=== PATIENT | male | born 1960 | race Caucasian/White ===

== ENCOUNTER 2018-01-26 12:55 | Outpatient (CLI) ==
--- NOTE | 2018-01-26 13:47 | DI ---
EXAM: Four views of the left shoulder. History: Left shoulder pain. Findings: No acute fracture or dislocation. Moderate to severe narrowing of the left glenohumeral j oint with osteophyte formation. Mild to moderate narrowing of the left AC joint. Impression: 1. No acute osseous abnormality. 2. Moderate to severe osteoarthritis of the left glenohumeral joint
== END 2018-01-26 12:56 | disposition home or self-care (01) ==
LOC: RAD 12:55
PROVIDERS: ATTEND Internal Medicine
DX: M25.512 Pain in left shoulder (principal); E78.5 Hyperlipidemia, unspecified; I10 Essential (primary) hypertension; Z79.899 Other long term (current) drug therapy; Z12.5 Encounter for screening for malignant neoplasm of prostate
CPT/HCPCS: 36415; 80053; 80061; 83036; 84443; 85025

== ENCOUNTER 2018-02-05 07:34 | Day surgery (SDC) ==
[2018-02-05] MEDS ORDERED: TETRACAINE 0.5% UNIT-DOSE OP PRN (07:50)
[2018-02-05] MEDS ORDERED: LIDOCAINE HCL 1% SDV INJ PRN (07:50)
[2018-02-05] MEDS ORDERED: BSS WITH EPINEPHRINE OP ONE (07:50)
[2018-02-05] MEDS ORDERED: BETADINE OPTH PREP OP ONE (07:50)
[2018-02-05] MEDS: AK-DILATE 10% OPTH SOL OP PRN ×3 (07:58→08:08)
[2018-02-05] MEDS: OCUFEN 0.03% OPTH SOL OP PRN ×2 (07:58→08:13)
[2018-02-05] MEDS: TETRACAINE 0.5% UNIT-DOSE OP PRN ×2 (07:58→08:13)
[2018-02-05] MEDS: CYCLOGYL 2% OPTH OP PRN ×3 (07:58→08:08)
[2018-02-05 08:03] VITALS: BP 146/70; TEMP 97.6
[2018-02-05] MEDS ORDERED: DIAMOX PO STA ×3 (08:08→16:17)
[2018-02-05] MEDS ORDERED: LIDOCAINE 1% 20 ML MDV ID STA (08:08)
[2018-02-05] MEDS ORDERED: ADRENALIN 1:1000 SDV IR STA (09:00)
[2018-02-05] MEDS ORDERED: SUBLIMAZE ONE (09:05)
[2018-02-05] MEDS ORDERED: VERSED ONE (09:05)
[2018-02-05] MEDS ORDERED: DIAMOX ONE (09:35)
[2018-02-05] MEDS ORDERED: DIAMOX PO ONE (09:50)
--- NOTE | 2018-02-06 18:01 | OP ---
PREOPERATIVE DIAGNOSIS: ADVANCED HIGH INDEX NUCLEAR SCLEROTIC CATARACT RIGHT EYE. POSTOPERATIVE DIAGNOSIS: SAME. OPERATION PHACOEMULSIFICATION ASPIRATION OF CATARACT RIGHT EYE. PLACEMENT OF POSTERIOR CHAMBER LENS. PHACO TIME 37.3 SECONDS AT 100% POWER. LENS MODEL TECANOOP [id number]. DIOPTER +16.0D. TECHNIQUE: CLEAR CORNEA. ANESTHESIA: TOPICAL ANESTHESIA W/ANESTHESIA MONITORING. OPERATIVE REPORT: Topical anesthesia consisting of Tetracaine was applied to the cornea and Xylocaine Methyl Paraben free of MFP was injected intracamerally into the anterior chamber. The patient was then brought into the operating room , prepped and draped in the usual ophthalmic manner. A lid speculum was placed and the operating microscope was used. A paracentesis was made at the 3 o' clock position. A clear corneal incision was made just out to the limbus. The anterior chamber was entered just inside the clear cornea. Viscoelastic was injected into the anterior chamber. A capsulotomy was performed with a bent # 27 gauge needle. Phacoemulsification was then performed in the posterior chamber. After completion of the phacoemulsification, residual cortical material was aspirated with the irrigation-aspiration system. The posterior capsule was polished. Viscoelastic was injected into the anterior and posterior chambers to inflate the capsular bag. Lens were placed via an Unfolder system and stabilized in the bag. Viscoelastic was removed from the anterior chamber. The wound was checked for any leakage. The four sponges were removed from the fornix. Topical antibiotic steroid and nonsteroidal drops were also applied to the cornea. A Bass shield was applied. The patient left the operating room in good condition without any complications. INTRAOPERATIVE MEDICATIONS: Xylocaine Methyl Paraben Free MPF MTDD
== END 2018-02-05 10:00 | disposition home or self-care (01) ==
LOC: SURG 07:34
PROVIDERS: ATTEND Ophthalmology
DX: H25.13 Age-related nuclear cataract, bilateral (principal); I10 Essential (primary) hypertension

== ENCOUNTER 2018-02-24 12:02 | Emergency (ER) ==
[2018-02-24 12:11] VITALS: TEMP 97.9; BMI 26.4
--- NOTE | 2018-02-24 12:41 | CT ---
EXAM: CT of the head without contrast History: Head trauma. Technique: Multiplanar CT images through the head were obtained without the administration of IV con trast Findings: Air-fluid levels are seen within the paranasal sinuses. Mastoid air cells are clear in ge neral. No acute calvarial abnormalities. Intracranially there is mild diffuse atrophy. No midline shift and no hydrocephalus. No acute intra cranial hemorrhage or abnormal extraaxial fluid collections. Periventricular and subcortical white m atter hypodensities. Impression: 1. No acute intracranial hemorrhage. 2. Atrophy and chronic small vessel ischemic disease. 3. Paranasal sinusitis
[2018-02-24] MEDS ORDERED: SODIUM CHLORIDE 1,000 ML IV STA (12:42)
--- NOTE | 2018-02-24 12:50 | CT ---
EXAM: CT scan of the cervical spine without contrast HISTORY: Fall injury TECHNIQUE: Helical imaging of the cervical spine was performed without contrast. Sagittal and coron al reconstructions and axial images were provided for interpretation. FINDINGS: There is straightening of the cervical spine. The occipital condyles, C1 ring appear inta ct. The spinous processes are intact. There is a normal alignment of the facet joints. The prever tebral soft tissues are normal. No acute fractures are identified. IMPRESSION: No evidence of acute fracture dislocation seen within the cervical spine.
--- NOTE | 2018-02-24 12:59 | ED.PDOC ---
General ED Provider: Dr. CINDY RANGEL Chief Complaint: Fall Mode of Arrival: Walk-In Information Source: Patient Primary Care Provider: KARTHIK VILLARREAL Sepsis Protocol: For patient's 13 years and over: Temp is 96.8 and below OR 101 and greater Pulse >90 BPM Resp >20/minute Acutely Altered Mental Status Are patient's symptoms suggestive of a new infection, such as: -Pneumonia -Skin, Soft Tissue -Endocarditis -UTI -Bone, Joint Infection -Implantable Device -Acute Abdominal Infection -Wound Infection -Meningitis -Blood Stream Catheter Infection -Unknown Past Medical History - Social History Smoking Status: Former smoker Hx Substance Use: No Alcohol Screening: Occasionally - Immunizations Tetanus Shot up to Date: Yes Interpretation - Radiology Interpretation Radiology Interpretation By: Radiologist Radiology Results: Negative (for bleed but noted Atrophy and chronic Small vessel ischemic changes. Paranasal sinusitis) Exam Interpreted: CT Scan (head) - EKG Interpretation Time of EKG #1: 13:30 Rate: Normal Rhythm: Sinus Ectopy: None Tony: NL ST Segment: Normal Interpretation: Prologed qtc 490 Course - Course Hematology/Chemistry: 02/24/18 12:45 02/24/18 12:45 Orders, Labs, Meds: Lab Review 02/24/18 02/24/18 12:45 12:45 WBC 9.15 RBC 4.51 L Hgb 14.3 Hct 42.0 MCV 93.1 MCH 31.7 H MCHC 34.0 RDW Coeff of Hai 14.8 Plt Count 304 Immature Gran % (Auto) 2.2 Neut % (Auto) 44.5 Lymph % (Auto) 41.1 Cataño % (Auto) 8.6 Eos % (Auto) 2.6 Baso % (Auto) 1.0 Immature Gran # (Auto) 0.2 Neut # (Auto) 4.1 Lymph # (Auto) 3.8 H Cata[place] # (Auto) 0.8 Eos # (Auto) 0.2 Baso # (Auto) 0.1 Sodium 144 Potassium 3.4 L Chloride 110 H Carbon Dioxide 19 L Anion Gap 18.4 BUN 12 Creatinine 0.69 Estimated GFR (MDRD) 119.00 BUN/Creatinine Ratio 17.39 Glucose 94 Calcium 8.5 Total Bilirubin 0.3 AST 28 ALT 15 Alkaline Phosphatase 96 Total Creatine Kinase 38 Troponin I 0.0120 Total Protein 7.9 Albumin 4.0 Globulin 3.9 Albumin/Globulin Ratio 1.03 Orders Category Date Time Status ABG DRAW REQUEST Routine CARDIO 02/24/18 13:29 Ordered EKG-(ED ONLY) Stat CARDIO 02/24/18 12:42 Completed ED IV/MEDIPORT/POWERPORT .ONCE EMERGENCY 02/24/18 12:42 Active Orthostatic [ED ORTHOSTATIC VITAL SIGNS] .ONCE EMERGENCY 02/24/18 12:44 Active ABG Stat LAB 02/24/18 13:29 Ordered CBC W/ AUTO DIFF Stat LAB 02/24/18 12:45 Completed COMPREHENSIVE METABOLIC PANEL Stat LAB 02/24/18 12:45 Completed CREATINE KINASE Stat LAB 02/24/18 12:45 Completed DRUG SCREEN, URINE, RAPID Stat LAB 02/24/18 12:42 Uncollected TROPONIN I Stat LAB 02/24/18 12:45 Completed 0.9 % Sodium Chloride [Saline Flush] MEDS 02/24/18 12:42 Ordered 1 syr IVF PRN PRN Acetaminophen [Tylenol] MEDS 02/24/18 13:28 Stat 650 mg PO ONCE STA Sodium Chloride 0.9% [Sodium Chloride] 1,000 ml MEDS 02/24/18 12:42 Active IV 125 mls/hr CT CERVICAL SPINE W/O CONTRAST Stat RADS 02/24/18 12:[address] HEAD W/O CONTRAST Stat RADS 02/24/18 12:21 Completed Medications Generic Name Dose Route Start Last Admin Trade Name Freq PRN Reason Stop Dose Admin Sodium Chloride 1,000 mls @ 125 mls/hr 02/24/18 12:42 02/24/18 13:03 Sodium Chloride IV 02/24/18 20:41 125 mls/hr .Q8H STA Administration Sodium Chloride 1 syr 02/24/18 12:42 Saline Flush IVF PRN PRN To flush IV Discontinued Medications Generic Name Dose Route Start Last Admin Trade Name Freq PRN Reason Stop Dose Admin Acetaminophen 650 mg 02/24/18 13:28 Tylenol PO 02/24/18 13:29 ONCE STA Vital Signs: Temp Pulse Resp BP Pulse Ox 02/24/18 13:02 109 H 116/69 02/24/18 12:04 97.9 F 104 H 20 128/84 93 L Departure - Departure Allergies/Adverse Reactions: Allergies Sulfa (Sulfonamide Antibiotics) Adverse Reaction (Verified 02/24/18 12:14) Home Medications: Ambulatory Orders Amlodipine Besylate [Norvasc] 10 mg PO DAILY 02/05/18 Oxycodone-Acetaminophen 5-325 [Percocet 5-325] 1 tab PO BID 02/05/18 Pravastatin Sodium [Pravachol] 1 tab PO DAILY 02/05/18
[2018-02-24] MEDS ORDERED: TYLENOL PO STA (13:28)
--- NOTE | 2018-02-24 14:03 | DI ---
EXAM: Single view of the chest. History: Cough. Findings: Heart size is upper limits of normal. No focal consolidation. No appreciable pleural flu id and no pneumothorax. No acute osseous abnormalities. 1.9 cm calcific density projecting over the left scapula could represent a bone island or adjacent soft tissue calcification. Impression: No acute cardiopulmonary process
--- NOTE | 2018-02-24 14:30 | ED.PDOC ---
General ED Provider: Dr. CINDY RANGEL Chief Complaint: Fall Stated Complaint: Patient is a 57 year old male who states that he lost his balance when he got dizzy and fell at 3 am while trying to go to the bathroom. He did not loose conciousness. Has sustained an injury to the mid occipital area. Has some dizziness with standing. Time Seen by Physician: 14:27 Mode of Arrival: Walk-In Information Source: Patient Exam Limitations: No limitations Primary Care Provider: KARTHIK VILLARREAL Nursing and Triage Documentation Reviewed and Agree: Yes Does patient meet sepsis criteria?: No System Inflammatory Response Syndrome: Not Applicable Sepsis Protocol: For patient's 13 years and over: Temp is 96.8 and below OR 101 and greater Pulse >90 BPM Resp >20/minute Acutely Altered Mental Status Are patient's symptoms suggestive of a new infection, such as: -Pneumonia -Skin, Soft Tissue -Endocarditis -UTI -Bone, Joint Infection -Implantable Device -Acute Abdominal Infection -Wound Infection -Meningitis -Blood Stream Catheter Infection -Unknown Trauma/Injury Complaint Exam - Head Injury Complaint/Exam Location of Pain: Reports: Scalp Mechanism of Injury: Reports: Trauma Review of Systems - Review Of Systems Constitutional: Reports: Weakness Eyes: Reports: No symptoms Ears, Nose, Mouth, Throat: Denies: Ear pain (heard of hearing ) Skin: Reports: Bruising, Other (and abrassion of scalp. ) Neurological: Reports: Other (unsteady gait ) Endocrine: Reports: No symptoms Hematologic/Lymphatic: Reports: No symptoms All Other Systems: Reviewed and Negative Past Medical History - Past Medical History Endocrine: Reports: Dyslipidemia Cardiovascular: Reports: Hypertension Respiratory: Reports: None Hematological: Reports: None Gastrointestinal: Reports: None Genitourinary: Reports: None Neuro/Psych: Reports: None Musculoskeletal: Reports: Arthritis Cancer: Reports: None Other Pertinent Past Medical History: Left Ulnar damage for fracture 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 - Surgical History General Surgical History: Reports: Other (Testicular Remaoval, Hip surgery ) - Family History Family History: Reports: None - Social History Smoking Status: Former smoker Hx Substance Use: No Alcohol Screening: Occasionally - Immunizations Tetanus Shot up to Date: Yes Physical Exam - Physical Exam Appearance: Ill-appearing Ill-appearing: Mild Pain Distress: None Eyes: ANNIE, EOMI, Conjunctiva clear Neck: Supple Respiratory: Airway patent, Breath sounds clear, Breath sounds equal, Respirations nonlabored Cardiovascular: RRR, Pulses normal, No rub, No murmur GI/: Soft, Nontender, No masses, Bowel sounds normal, No Organomegaly Musculoskeletal: Limited strength (on the left forearm due to prior ulnar nerve damage following an elbow fracture. ) Skin: Warm, Dry Neurological: Alert Psychiatric: Anxious Interpretation - Radiology Interpretation Radiology Interpretation By: Radiologist Radiology Results: Negative Exam Interpreted: CT Scan Radiology Interpretation By: Radiologist Radiology Results: Negative Exam Interpreted: CXR Critical Care Note - Critical Care Note Total Time (mins): 30 Course - Course Hematology/Chemistry: 02/24/18 12:45 02/24/18 12:45 Orders, Labs, Meds: Lab Review 02/24/18 02/24/18 02/24/18 12:45 12:45 13:29 WBC 9.15 RBC 4.51 L Hgb 14.3 Hct 42.0 MCV 93.1 MCH 31.7 H MCHC 34.0 RDW Coeff of Hai 14.8 Plt Count 304 Immature Gran % (Auto) 2.2 Neut % (Auto) 44.5 Lymph % (Auto) 41.1 Rush % (Auto) 8.6 Eos % (Auto) 2.6 Baso % (Auto) 1.0 Immature Gran # (Auto) 0.2 Neut # (Auto) 4.1 Lymph # (Auto) 3.8 H Rush # (Auto) 0.8 Eos # (Auto) 0.2 Baso # (Auto) 0.1 Puncture Site R radial O2 Saturation 94.0 L ABG pH 7.335 L ABG pCO2 38.9 ABG pO2 73.0 L ABG HCO3 20.7 L ABG Total CO2 22 ABG Base Excess -5 L Usman Test + FiO2 % 21.0 Sodium 144 Potassium 3.4 L Chloride 110 H Carbon Dioxide 19 L Anion Gap 18.4 BUN 12 Creatinine 0.69 Estimated GFR (MDRD) 119.00 BUN/Creatinine Ratio 17.39 Glucose 94 Calcium 8.5 Total Bilirubin 0.3 AST 28 ALT 15 Alkaline Phosphatase 96 Total Creatine Kinase 38 Troponin I 0.0120 Total Protein 7.9 Albumin 4.0 Globulin 3.9 Albumin/Globulin Ratio 1.03 Urine Color Urine Clarity Urine pH Ur Specific [place] Urine Protein Urine Glucose (UA) Urine Ketones Urine Blood Urine Nitrite Urine Bilirubin Urine Urobilinogen Ur Leukocyte Esterase Urine Microscopic WBC Ur Squamous Epith Cells Urine Mucus Urine Opiates Screen Ur Oxycodone Screen Urine Methadone Screen Ur Propoxyphene Screen Ur Barbiturates Screen U Tricyclic Antidepress Ur Phencyclidine Scrn Ur Amphetamine Screen U Methamphetamines Scrn U Benzodiazepines Scrn Urine Cocaine Screen U Cannabinoids Screen 02/24/18 02/24/18 14:30 14:30 WBC RBC Hgb Hct MCV MCH MCHC RDW Coeff of Hai Plt Count Immature Gran % (Auto) Neut % (Auto) Lymph % (Auto) Rush % (Auto) Eos % (Auto) Baso % (Auto) Immature Gran # (Auto) Neut # (Auto) Lymph # (Auto) Rush # (Auto) Eos # (Auto) Baso # (Auto) Puncture Site O2 Saturation ABG pH ABG pCO2 ABG pO2 ABG HCO3 ABG Total CO2 ABG Base Excess Usman Test FiO2 % Sodium Potassium Chloride Carbon Dioxide Anion Gap BUN Creatinine Estimated GFR (MDRD) BUN/Creatinine Ratio Glucose Calcium Total Bilirubin AST ALT Alkaline Phosphatase Total Creatine Kinase Troponin I Total Protein Albumin Globulin Albumin/Globulin Ratio Urine Color Yellow Urine Clarity Clear Urine pH 5.5 Ur Specific [place] 1.025 Urine Protein 1+ Urine Glucose (UA) Negative Urine Ketones Negative Urine Blood Negative Urine Nitrite Negative Urine Bilirubin Negative Urine Urobilinogen 0.2 Ur Leukocyte Esterase Negative Urine Microscopic WBC 0-2 Ur Squamous Epith Cells 0-2 Urine Mucus 2+ Urine Opiates Screen Negative Ur Oxycodone Screen Negative Urine Methadone Screen Negative Ur Propoxyphene Screen Negative Ur Barbiturates Screen Negative U Tricyclic Antidepress Negative Ur Phencyclidine Scrn Negative Ur Amphetamine Screen Negative U Methamphetamines Scrn Negative U Benzodiazepines Scrn Negative Urine Cocaine Screen Negative U Cannabinoids Screen Negative Orders Category Date Time Status ABG DRAW REQUEST Routine CARDIO 02/24/18 13:29 Completed EKG-(ED ONLY) Stat CARDIO 02/24/18 12:42 Completed ED IV/MEDIPORT/POWERPORT .ONCE EMERGENCY 02/24/18 12:42 Active Orthostatic [ED ORTHOSTATIC VITAL SIGNS] .ONCE EMERGENCY 02/24/18 12:44 Active ABG Stat LAB 02/24/18 13:29 Completed CBC W/ AUTO DIFF Stat LAB 02/24/18 12:45 Completed COMPREHENSIVE METABOLIC PANEL Stat LAB 02/24/18 12:45 Completed CREATINE KINASE Stat LAB 02/24/18 12:45 Completed DRUG SCREEN, URINE, RAPID Stat LAB 02/24/18 14:30 Completed TROPONIN I Stat LAB 02/24/18 12:45 Completed UA [URINALYSIS C & S IF INDICATED] Stat LAB 02/24/18 14:30 Completed 0.9 % Sodium Chloride [Saline Flush] MEDS 02/24/18 12:42 Discontinued 1 syr IVF PRN PRN Acetaminophen [Tylenol] MEDS 02/24/18 13:28 Discontinued 650 mg PO ONCE STA Sodium Chloride 0.9% [Sodium Chloride] 1,000 ml MEDS 02/24/18 12:42 Discontinued IV 125 mls/hr Sodium Chloride 0.9% [Sodium Chloride] 500 ml MEDS 02/24/18 15:06 Discontinued IV BOLUS CHEST, 1V AP ONLY Stat RADS 02/24/18 13:[address] CERVICAL SPINE W/O CONTRAST Stat RADS 02/24/18 12:[address] HEAD W/O CONTRAST Stat RADS 02/24/18 12:21 Completed Medications Discontinued Medications Generic Name Dose Route Start Last Admin Trade Name Freq PRN Reason Stop Dose Admin Acetaminophen 650 mg 02/24/18 13:28 02/24/18 13:46 Tylenol PO 02/24/18 13:29 650 mg ONCE STA Administration Sodium Chloride 1,000 mls @ 125 mls/hr 02/24/18 12:42 02/24/18 13:03 Sodium Chloride IV 02/24/18 20:41 125 mls/hr .Q8H STA Administration Sodium Chloride 500 mls @ 1,000 mls/hr 02/24/18 15:06 02/24/18 15:13 Sodium Chloride IV 02/24/18 15:35 1,000 mls/hr BOLUS STA Administration Sodium Chloride 1 syr 02/24/18 12:42 Saline Flush IVF PRN PRN To flush IV Vital Signs: Temp Pulse Resp BP Pulse Ox 02/24/18 15:51 147/87 H 02/24/18 15:08 110 H 140/87 02/24/18 15:07 95 H 147/86 H 02/24/18 13:02 109 H 116/69 02/24/18 12:04 97.9 F 104 H 20 128/84 93 L Departure - Departure Time of Disposition: 15:30 Disposition: HOME SELF-CARE Discharge Problem: Orthostatic dizziness Fall at home Qualifiers: Encounter type: initial encounter Qualified Code(s): W19.XXXA - Unspecified fall, initial encounter Abrasion head Qualifiers: Encounter type: initial encounter Qualified Code(s): S00.91XA - Abrasion of unspecified part of head, initial encounter Instructions: Dehydration (ED), Abrasion (ED) Condition: Stable Pt referred to PMD for follow-up: Yes IPMP verified?: No Additional Instructions: Push fluids Follow up with PCP in 3 days Allergies/Adverse Reactions: Allergies Sulfa (Sulfonamide Antibiotics) Adverse Reaction (Verified 02/24/18 12:14) Home Medications: Ambulatory Orders Amlodipine Besylate [Norvasc] 10 mg PO DAILY 02/05/18 Oxycodone-Acetaminophen 5-325 [Percocet 5-325] 1 tab PO BID 02/05/18 Pravastatin Sodium [Pravachol] 1 tab PO DAILY 02/05/18 Disposition Discussed With: Patient, Family
[2018-02-24] MEDS ORDERED: SODIUM CHLORIDE 500 ML IV STA (15:06)
[2018-02-24 15:52] VITALS: BP 147/87
== END 2018-02-24 15:56 | disposition home or self-care (01) ==
LOC: ED 12:02
DX: R42 Dizziness and giddiness (principal); S00.01XA Abrasion of scalp, initial encounter; W19.XXXA Unspecified fall, initial encounter
CPT/HCPCS: 36415; 80053; 80306; 81001; 82550; 82803; 84484; 85025; 93005; 93010; 96360; 96361; 99284

== ENCOUNTER 2018-03-05 08:56 | Day surgery (SDC) ==
[2018-03-05] MEDS: CYCLOGYL 2% OPTH OP PRN ×3 (09:56→10:07)
[2018-03-05] MEDS: TETRACAINE 0.5% UNIT-DOSE OP PRN ×3 (09:56→12:01)
[2018-03-05] MEDS: AK-DILATE 10% OPTH SOL OP PRN ×3 (09:57→10:07)
[2018-03-05] MEDS: OCUFEN 0.03% OPTH SOL OP PRN ×2 (09:57→10:11)
[2018-03-05 10:08] VITALS: TEMP 97.5
[2018-03-05] MEDS ORDERED: LIDOCAINE 1% 20 ML MDV ID STA (10:10)
[2018-03-05] MEDS ORDERED: BETADINE OPTH PREP OP ONE (10:10)
[2018-03-05] MEDS ORDERED: DIAMOX PO STA (10:10)
[2018-03-05] MEDS ORDERED: DIPRIVAN 20 ML VIAL IVP ONE (12:00)
[2018-03-05] MEDS ORDERED: VERSED ONE (12:00)
[2018-03-05] MEDS ORDERED: PRED FORTE 1% OPTH SOL OP PRN (12:05)
[2018-03-05] MEDS ORDERED: LIDOCAINE HCL 1% SDV INJ PRN (12:05)
[2018-03-05] MEDS ORDERED: BSS WITH EPINEPHRINE OP ONE (12:05)
[2018-03-05] MEDS ORDERED: DIAMOX ONE (12:55)
--- NOTE | 2018-03-06 09:24 | OP ---
PREOPERATIVE DIAGNOSIS: ADVANCED NUCLEAR SCLEROTIC CATARACT AND HIGH INDEX PLUS ANISOMETROPIA LEFT EYE. POSTOPERATIVE DIAGNOSIS: SAME. OPERATION PHACOEMULSIFICATION ASPIRATION OF CATARACT LEFT EYE. PLACEMENT OF POSTERIOR CHAMBER LENS. PHACO TIME 45.8 SECONDS AT 10% POWER. LENS MODEL BAHMAN [id number]. DIOPTER +15.5D. TECHNIQUE: CLEAR CORNEA. ANESTHESIA: TOPICAL ANESTHESIA W/ANESTHESIA MONITORING. OPERATIVE REPORT: Topical anesthesia consisting of Tetracaine was applied to the cornea and Xylocaine Methyl Paraben free of MFP was injected intracamerally into the anterior chamber. The patient was then brought into the operating room , prepped and draped in the usual ophthalmic manner. A lid speculum was placed and the operating microscope was used. A paracentesis was made at the 3 o' clock position. A clear corneal incision was made just out to the limbus. The anterior chamber was entered just inside the clear cornea. Viscoelastic was injected into the anterior chamber. A capsulotomy was performed with a bent # 27 gauge needle. Phacoemulsification was then performed in the posterior chamber. After completion of the phacoemulsification, residual cortical material was aspirated with the irrigation-aspiration system. The posterior capsule was polished. Viscoelastic was injected into the anterior and posterior chambers to inflate the capsular bag. Lens were placed via an Unfolder system and stabilized in the bag. Viscoelastic was removed from the anterior chamber. The wound was checked for any leakage. The four sponges were removed from the fornix. Topical antibiotic steroid and nonsteroidal drops were also applied to the cornea. A Bass shield was applied. The patient left the operating room in good condition without any complications. INTRAOPERATIVE MEDICATIONS: Xylocaine Methyl Paraben Free MPF MTDD
[2018-03-08 12:05] VITALS: BP 138/69
== END 2018-03-05 13:00 | disposition home or self-care (01) ==
LOC: SURG 08:56
PROVIDERS: ATTEND Ophthalmology
DX: H25.12 Age-related nuclear cataract, left eye (principal); H52.31 Anisometropia

== ENCOUNTER 2018-03-21 06:34 | Outpatient (CLI) | END 2018-03-21 06:35 | disposition home or self-care (01) | LOC: CAR 06:34 | PROVIDERS: ATTEND Internal Medicine | DX: I50.9 Heart failure, unspecified (principal); R06.02 Shortness of breath; Z01.810 Encounter for preprocedural cardiovascular examination | CPT/HCPCS: 93005; 93010 ==

== ENCOUNTER 2018-03-22 06:32 | Outpatient (CLI) ==
[2018-03-22] MEDS ORDERED: DOBUTAMINE 250 ML IV ONE (07:31)
[2018-03-22] MEDS ORDERED: ATROPINE SULFATE PFS ONE (07:31)
--- NOTE | 2018-03-23 08:59 | DOBSTECHO ---
Date of Test: 03/22/18 Ordering Physician: DR. KARTHIK VILLARREAL Reason for Examination: CHF, SURGICAL CLEARANCE Current Medications: TRAMADOL, AMLODIPINE, PANTOPRAZOLE, PRAVASTATIN, CARVEDILOL , HYDROCODONE Height: 73" Weight: 202 LBS Target Heart Rate: 140/165 S-T Segment Stage Time HR BPM BP MMHG Rhythm +/- Elevation Depression Comments/ Symptoms Control Sitting 71 150/96 SR X NONE Dobutamine 250mg/D5W 5cmg/KG/mn 10cmg/KG/mn 3:00 86 146/92 SR X NONE 15cmg/KG/mn 2:00 80 156/90 SR x NONE 20cmg/KG/mn 2:00 84 164/86 SR x NONE 25cmg/KG/mn 2:00 88 162/88 SR x NONE 30cmg/KG/mn 2:00 86 162/88 SR x NONE 35cmg/KG/mn 2:00 88 162/88 SR x NONE 40cmg/KG/mn 2:00 100 166/76 SR x NONE Time: 3:00 HR B/P Time: HR B/P Time: HR B/P Recovery 83 156/96 Recovery Recovery Total Time: 15:23 Maximum Heart Rate Reached: 100 BPM Interpretation: 1. NO EVIDENCE OF ISCHEMIA BY ST-T WAVE FROM HEART RATE 71 BPM AT REST TO 100 BPM WITH DOBUTAMINE INFUSION 2. NO CHEST PAIN OR DISCOMFORT 3. NORMAL LEFT VENTRICULAR CONTRACTILITY--RESTING AND WITH DOBUTAMINE INFUSION MTDD
--- NOTE | 2018-03-23 09:01 | ECHOSTRESS ---
Date of Exam: 03/22/18 Ordering Physician: DR. KARTHIK VILLARREAL Reason for Echo: CHF, SURGICAL CLEARANCE, DOBUTAMINE STRESS-NO ISCHEMIA M-Mode Normal Adult Results LV Dimensions Normal Adult Results AoV Opening excursions >1.6 LVEDD-base- 3.5-5.8 Ao root dimensions 2.0-3.7 LVESD-base- 3.1-4.6 L. Atrium dimensions 1.9-3.8 Post. Wall thickness 0.8-1.1 IV septum (thickness) 0.7-1.2 Post. Wall excursion 0.72-1.3 Septal motion Systolic motion R. Ventricular cavity 1.5-2.0 LVEF 60% Paradoxical septal wall motion 2-D: NORMAL LEFT VENTRICULAR CONTRACTILITY--RESTING AND WITH DOBUTAMINE INFUSION M-MODE: MV: AV: TV: PV: CHAMBER SIZE: WALL MOTION: NORMAL LEFT VENTRICULAR CONTRACTILITY--RESTING AND WITH DOBUTAMINE INFUSION PERICARDIUM: INTERPRETATION: 1. NORMAL LEFT VENTRICULAR CONTRACTILITY--RESTING AND WITH DOBUTAMINE INFUSION MTDD
== END 2018-03-22 06:33 | disposition home or self-care (01) ==
LOC: CAR 06:32
PROVIDERS: ATTEND Internal Medicine
DX: R06.02 Shortness of breath (principal); I50.9 Heart failure, unspecified; Z01.810 Encounter for preprocedural cardiovascular examination

== ENCOUNTER 2018-03-27 09:47 | Outpatient (POV) | END 2018-03-27 17:00 | LOC: OUTPT 09:47 | PROVIDERS: ATTEND Otolaryngology | DX: H91.90 Unspecified hearing loss, unspecified ear (principal) ==

== ENCOUNTER 2018-04-27 13:00 | Outpatient (RCR) ==
--- NOTE | 2018-04-02 15:20 | RS.OPPTEV2 ---
Date of Note: 04/02/18 Visit #: 1 Date of Evaluation: 04/02/18 Payer Source: Medicaid Surgery Performed?: Yes Procedure Performed: Left Total Shoulder Replacement Date of Procedure: 03/28/18 Treatment Diagnosis: Left shoulder pain, Left shoulder stiffness, s/p Left TSA History of Condition/Mechanism of Injury:: Progressive left shoulder pain and limited use after conservative treatment led to him having a TSR. Prior Level of Function.....Patient was independent with: ADL's, Self Care, Work /Vocation (retired), Caregiving, Ambulation/Mobility, Community Integration/ Access Functional Limitations: Sleep, Self Care, ADL's, Reaching, Pushing, Pulling, Lifting, Carrying, Sitting, Bending, Community Access/Integration Current Subjective/complaints:: Patient reports wearing left shoulder sling constantly. Reports no swelling in the left hand. He did have a nerve block. States he is currently sleeping in a lift chair. He is living with his mother. She has changed his dressing daily since surgery. Reports pain at rest. He has not tried to use the left UE. States he was told not to drive for 4 weeks and not to use the left UE at all. Reports no prior surgery to the left shoulder. 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 Reports he was left with limited use and numbness in the 5th and lateral portion of the 4th digits of the left hand. States left elbow is hypersensitive. Treatment Side (optional): Left Medical History Surgical History: Hip Replacement (Left X 3, due to dislocations and infection 2014) Surgical History Comments:: Left orchiectomy Smoking Status: Former smoker Hx Home Medications: Oxycodone ,Amlodipine, pravastatin, Patient's Goals: His goal is to regain functional AROM of the left shoulder. Pain Assessment - Pain Description Pain Location: left shoulder Current Pain Intensity: 5/10 Worst Pain Intensity: 10/10 Functional Outcome Measure UE Functional Index: 2 (280=97.5% impairment) - G Codes & Severity Modifier G Codes & Modifier: NA Source of G Code score: NA Observation - Observation Inspection: Patient presents to therapy with left UE in sling with abductor pillow. Presents with light dressing over incision at left shoulder. Posture: Forward Head, Rounded Shoulders Handedness: Right Shoulder ROM: Right WFL's Shoulder Muscle Strength: Right WFL's - Left Shoulder ROM Comments: Passive left shoulder flexion to 75 degrees, abduction to 75-80 degrees. Left elbow, wrist, and hand WFL's. 5th digit of left hand demonstrates flexion contracture deformity. Ulnar aspect of left hand demonstrates moderate muscle atrophy. - Left Shoulder Strength Comments: Muscle strength of the left shoulder not tested. Sensation - Sensation Comments: Reports numbness of 5th and lateral aspect of 4th digit on the left hand. Otherwise, sensation intact throughout left UE. - Heat/Cryotherapy Treatment: Cryotherapy (applied to left shoulder X 12 mins follow eval and ROM) Interventions - Exercise/Activities/Manual Therapy Exercises/Activities: Patient received PROM to the left shoulder into flexion and abduction. Mr. Velez was moderately guarded and required continous cues to relax the arm so that the ROM is Passive and not assisted. Instructed in HEP of Pendulum, scapular retraction, elbow and wrist flexion/extension. Advised to use ice on the shoulder a few times a day to help manage pain and swelling. Manual Therapy: NA HOME EXERCISE PROGRAM: Pendulum, scapular retraction, elbow and wrist flexion/ extension - Charges Timed Code Treatment Minutes: 12 mins Total Treatment Time: 45 mins Procedures billed for this date of service:: EVAL LOW, EX, CP EVALUATION COMPLEXITY LEVEL EVALUATION COMPLEXITY LEVEL: HISTORY: Medium (History of left ulnar sx and limited use of 5th digit, complications of left JACINTO), EXAM OF BODY SYSTEMS: Medium (limited with all selfcare, ADL's, sleep), CLINICAL PRESENTATION: Medium , CLINICAL DECISION MAKING: Medium Assessment Assessment: Patient presents to therapy 5 days s/p left total shoulder replacement. He presents with limited AROM due to surgery precautions, and limited passive ROM due to pain. He requires assistance at this time with all selfcare and ADL's. He demonstrates good understanding of surgical precautions and appears to be compliant with use of sling. He demonstrates good potential to regain functional use of the left UE with appropriately progressed therapeutic intervention. Patient Education: Education of diagnosis, Body/Joint mechanics, Home Exercise Program, Home Safety, Activity Modification, Education of Plan of Care Rehab Potential: Good Short Term Goals Goal #1: Pt independent and compliant with HEP. Goal to be met by: 04/16/18 Goal #2: Left shoulder PROM WFL's. Goal to be met by: 04/16/18 Goal #3: Pt to demo. improved postural awareness. Goal to be met by: 04/16/18 Site Leader Goals Goal #1: Pt knows HEP and to continue ex's to maintain level of function at D/C. Goal to be met by: 05/07/18 Goal #2: Score on UE functional scale improved to 40/80. Goal to be met by: 05/07/18 Goal #3: Left shoulder AROM WFL's to perform functional reaching. Goal to be met by: 05/07/18 Goal #4: L shoulder strength increased to maintain positions for completing ADL' s. Goal to be met by: 05/07/18 Plan - Treatment to be Provided Procedures: Therapeutic Exercises, Therapeutic Activity, Patient Education Modalities: Cryotherapy - Treatment Plan Frequency: 2 X week Duration: 4 weeks ORDER # VISITS AND/OR THROUGH DATE: 05/07/18 - Treatment Code (1) Shoulder pain Code(s): M25.519 - PAIN IN UNSPECIFIED SHOULDER Qualifiers: Chronicity: acute Laterality: left Qualified Code(s): M25.512 - Pain in left shoulder (2) Shoulder stiffness Qualifiers: Laterality: left Qualified Code(s): M25.612 - Stiffness of left shoulder, not elsewhere classified (3) Aftercare following joint replacement surgery Code(s): Z47.1 - AFTERCARE FOLLOWING JOINT REPLACEMENT SURGERY Qualifiers: Joint replacement surgery site: shoulder Laterality: left Qualified Code( s): Z47.1 - Aftercare following joint replacement surgery; Z96.612 - Presence of left artificial shoulder joint (4) Primary osteoarthritis Code(s): M19.91 - PRIMARY OSTEOARTHRITIS, UNSPECIFIED SITE Qualifiers: Osteoarthritis location: shoulder Laterality: left Qualified Code(s): M19.012 - Primary osteoarthritis, left shoulder
--- NOTE | 2018-04-04 13:21 | RS.CXNS ---
Type: Rescheduled Reason for Cancel/NS: Reports pain in back as he was doing shoulder pendulum exercise,not feeling well today.re-scheduled for tomorrow.
--- NOTE | 2018-04-05 15:00 | RS.OPPTDN ---
Subjective Date of Note: 04/05/18 Visit #: 2 Date of Evaluation: 04/02/18 Payer Source: Medicaid Treatment Diagnosis: Left shoulder pain, Left shoulder stiffness, s/p Left TSA Current Subjective/complaints:: Patient reports sleeping in the bed for the first time last night ,rested better. Pain Assessment - Pain Description Pain Location: L shoulder Pain Description: Tightness, Throbbing, Aching Current Pain Intensity: 0 at rest,4 while up moving Worst Pain Intensity: 7 at available end ROM - Heat/Cryotherapy Treatment: Cryotherapy (15 mins. after exercises) Interventions - Exercise/Activities/Manual Therapy Exercises/Activities: 30 mins. total of PROM ,patient in reclined position.Passive forward flexion to 95 degrees ,10 to 15 degrees of external rotation with arm at side,65 degrees of abduction.Reviewed precautions , reminded he is one week post-op. Total minutes of Exercise: 30 Manual Therapy: NA Total minutes of Manual Therapy: 0 HOME EXERCISE PROGRAM: Pendulum, scapular retraction, elbow and wrist flexion/ extension - Charges Timed Code Treatment Minutes: 30 Total Treatment Time: 45 Procedures billed for this date of service:: ex 2,cp Assessment: Patient does require several cues to relax ,and avoid assisting with movement ,but this improves as the exercises progress.He reports increased discomfort with forward flexion beyond 90 degrees.He is compliant to wearing shoulder immobilizer. Patient Education: Education of diagnosis, Body/Joint mechanics, Home Exercise Program, Home Safety, Activity Modification, Education of Plan of Care Patient demonstrates compliance with HEP?: Yes (very attentive) Short Term Goals Goal #1: Pt independent and compliant with HEP. Goal to be met by: 04/16/18 Progress towards Goal:: Progressing Goal #2: Left shoulder PROM WFL's. Goal to be met by: 04/16/18 Goal #3: Pt to demo. improved postural awareness. Goal to be met by: 04/16/18 Liquor Store Manager Goals Goal #1: Pt knows HEP and to continue ex's to maintain level of function at D/C. Goal to be met by: 05/07/18 Goal #2: Score on UE functional scale improved to 40/80. Goal to be met by: 05/07/18 Goal #3: Left shoulder AROM WFL's to perform functional reaching. Goal to be met by: 05/07/18 Goal #4: L shoulder strength increased to maintain positions for completing ADL' s. Goal to be met by: 05/07/18 Plan PLAN OF CARE EXPIRES ON:: 05/07/18 ORDER # VISITS AND/OR THROUGH DATE: 05/07/18 PLAN: Cont. PT to reduce /eliminate shoulder pain ,increase motion ,progress to increasing strength per protocol.
--- NOTE | 2018-04-09 14:56 | RS.OPPTDN ---
Subjective Date of Note: 04/09/18 Visit #: 3 Date of Evaluation: 04/02/18 Payer Source: Medicaid Treatment Diagnosis: Left shoulder pain, Left shoulder stiffness, s/p Left TSA Current Subjective/complaints:: no c/o,is compliant to wearing shoulder immobilizer. Pain Assessment - Pain Description Pain Location: L shoulder Pain Description: Tightness, Dull, Aching Current Pain Intensity: 3/10 Worst Pain Intensity: 6/10 Other Comments regarding Pain:: 6/10 today is at available end range of forward flexion. - Heat/Cryotherapy Treatment: Cryotherapy (15 mins after exercises) Interventions - Exercise/Activities/Manual Therapy Exercises/Activities: 40 mins. total of PROM ,patient in reclined position.Passive forward flexion to 125 degrees ,30 degrees of external rotation with arm at side,70 degrees of abduction.Multiple reps of each exercise. Total minutes of Exercise: 40 Manual Therapy: NA Total minutes of Manual Therapy: 0 HOME EXERCISE PROGRAM: Pendulum, scapular retraction, elbow and wrist flexion/ extension - Charges Timed Code Treatment Minutes: 40 Total Treatment Time: 55 Procedures billed for this date of service:: ex 3,cp Assessment: Patient more relaxed today ,less guarding present with passive motion.He reports forward flexion elevates the pain at available end ROM ( approx. 125 degrees today ).He is attentive to recomendations of the therapy staff. Patient Education: Education of diagnosis, Body/Joint mechanics, Home Exercise Program, Home Safety, Activity Modification, Education of Plan of Care Patient demonstrates compliance with HEP?: Yes Short Term Goals Goal #1: Pt independent and compliant with HEP. Goal to be met by: 04/16/18 Progress towards Goal:: Progressing Goal #2: Left shoulder PROM WFL's. Goal to be met by: 04/16/18 Progress towards Goal:: Progressing Goal #3: Pt to demo. improved postural awareness. Goal to be met by: 04/16/18 Progress towards Goal:: Progressing Wind Up Operator Goals Goal #1: Pt knows HEP and to continue ex's to maintain level of function at D/C. Goal to be met by: 05/07/18 Progress towards goal: Progressing Goal #2: Score on UE functional scale improved to 40/80. Goal to be met by: 05/07/18 Goal #3: Left shoulder AROM WFL's to perform functional reaching. Goal to be met by: 05/07/18 Goal #4: L shoulder strength increased to maintain positions for completing ADL' s. Goal to be met by: 05/07/18 Plan PLAN OF CARE EXPIRES ON:: 05/07/18 ORDER # VISITS AND/OR THROUGH DATE: 05/07/18 PLAN: Continue PT to improve L shoulder motion ,increase strength ,and eliminate pain .
--- NOTE | 2018-04-12 15:17 | RS.OPPTDN ---
Subjective Date of Note: 04/12/18 Visit #: 4 Date of Evaluation: 04/02/18 Payer Source: Medicaid Treatment Diagnosis: Left shoulder pain, Left shoulder stiffness, s/p Left TSA Current Subjective/complaints:: Patint reports he had follow-up with , good report,healng as expected.He is now allowed to drive. Pain Assessment - Pain Description Pain Location: L shoulder Pain Description: Tightness, Dull, Aching Current Pain Intensity: not rated - Heat/Cryotherapy Treatment: Cryotherapy (15 mins. after exercises) Interventions - Exercise/Activities/Manual Therapy Exercises/Activities: 40 mins. total of PROM ,patient in reclined position.Passive forward flexion to 125 to 130 degrees ,30 degrees of external rotation with arm at side,80 degrees of abduction.Multiple reps of each exercise.Added AROM for hand ,wrist ,and elbow (gripping ),wrist ext/flex, biceps curls with no resistance. Isometrics all directions of L shoulder Total minutes of Exercise: 40 Manual Therapy: NA Total minutes of Manual Therapy: 0 HOME EXERCISE PROGRAM: Pendulum, scapular retraction, elbow and wrist flexion/ extension - Charges Timed Code Treatment Minutes: 40 Total Treatment Time: 60 Procedures billed for this date of service:: ex 3,cp Assessment: Patient is now 15 days post-op,tolerates motion and protective phase exercises well.He does report elevated pain with isometrics,but improved with cues to not push forcefully against resistance,only contract the muscle.He is compliant to wearing shoulder sling Patient Education: Education of diagnosis, Body/Joint mechanics, Home Exercise Program, Home Safety, Activity Modification, Education of Plan of Care Patient demonstrates compliance with HEP?: Yes Short Term Goals Goal #1: Pt independent and compliant with HEP. Goal to be met by: 04/16/18 Progress towards Goal:: Progressing Goal #2: Left shoulder PROM WFL's. Goal to be met by: 04/16/18 Progress towards Goal:: Progressing Goal #3: Pt to demo. improved postural awareness. Goal to be met by: 04/16/18 Progress towards Goal:: Progressing Java Performance Engineer Goals Goal #1: Pt knows HEP and to continue ex's to maintain level of function at D/C. Goal to be met by: 05/07/18 Progress towards goal: Progressing Goal #2: Score on UE functional scale improved to 40/80. Goal to be met by: 05/07/18 Goal #3: Left shoulder AROM WFL's to perform functional reaching. Goal to be met by: 05/07/18 Goal #4: L shoulder strength increased to maintain positions for completing ADL' s. Goal to be met by: 05/07/18 Plan PLAN OF CARE EXPIRES ON:: 05/07/18 ORDER # VISITS AND/OR THROUGH DATE: 05/07/18 PLAN: Continue PT to increase L shoulder motion ,eliminate pain with doing ADL' s.
--- NOTE | 2018-04-16 15:18 | RS.OPPTDN ---
Subjective Date of Note: 04/16/18 Visit #: 5 Date of Evaluation: 04/02/18 Payer Source: Medicaid Treatment Diagnosis: Left shoulder pain, Left shoulder stiffness, s/p Left TSA Current Subjective/complaints:: Patient reports hurting more today,possibly due to rainy weather. Pain Assessment - Pain Description Pain Location: L shoulder Pain Description: Tightness, Dull, Aching Current Pain Intensity: 4 Worst Pain Intensity: 7 with exercise today - Heat/Cryotherapy Treatment: Cryotherapy (15 mins. after exercises) Interventions - Exercise/Activities/Manual Therapy Exercises/Activities: 40 mins. total of PROM ,patient in reclined position.Passive forward flexion to 145 degrees ,30 degrees of external rotation with arm at side,85 degrees of abduction.Multiple reps of each exercise.Finished with isometrics all directions,3/10 each. Total minutes of Exercise: 40 Manual Therapy: NA Total minutes of Manual Therapy: 0 HOME EXERCISE PROGRAM: Pendulum, scapular retraction, elbow and wrist flexion/ extension - Charges Timed Code Treatment Minutes: 40 Total Treatment Time: 60 Procedures billed for this date of service:: ex 3,cp Assessment: Progressing well,less muscle guarding with passive motion today.He s compliant to the total shoulder protocol. Patient Education: Education of diagnosis, Body/Joint mechanics, Home Exercise Program, Home Safety, Activity Modification, Education of Plan of Care Patient demonstrates compliance with HEP?: Yes Short Term Goals Goal #1: Pt independent and compliant with HEP. Goal to be met by: 04/16/18 Progress towards Goal:: Progressing Goal #2: Left shoulder PROM WFL's. Goal to be met by: 04/16/18 Progress towards Goal:: Progressing Goal #3: Pt to demo. improved postural awareness. 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 Goal to be met by: 05/07/18 Progress towards goal: Progressing Goal #2: Score on UE functional scale improved to 40/80. Goal to be met by: 05/07/18 Goal #3: Left shoulder AROM WFL's to perform functional reaching. Goal to be met by: 05/07/18 Goal #4: L shoulder strength increased to maintain positions for completing ADL' s. Goal to be met by: 05/07/18 Plan PLAN OF CARE EXPIRES ON:: 05/07/18 ORDER # VISITS AND/OR THROUGH DATE: 05/07/18 PLAN: Continue PT to reduce pain ,increase motion of the L shoulder.
--- NOTE | 2018-04-18 14:25 | RS.OPPTDN ---
Subjective Date of Note: 04/18/18 Visit #: 6 Date of Evaluation: 04/02/18 Payer Source: Medicaid Treatment Diagnosis: Left shoulder pain, Left shoulder stiffness, s/p Left TSA Current Subjective/complaints:: Patient reports he is doing his HEP regularly , is able to be out of the sling now per protocol. Pain Assessment - Pain Description Pain Location: L shoulder Pain Description: Tightness, Sharp, Aching Pain Description: sharp at end range of scaption or ER Current Pain Intensity: 1 Worst Pain Intensity: 6 Other Comments regarding Pain:: averages around 4/10 during exercises - Heat/Cryotherapy Treatment: Cryotherapy (15 mins. after exercises) Interventions - Exercise/Activities/Manual Therapy Exercises/Activities: 40 mins. total of PROM ,patient in reclined position.Passive forward flexion to 145 degrees ,30 -35 degrees of external rotation with arm at side,130 degrees of scaption.Multiple reps of each exercise.Finished with isometrics all directions,3/10 each. Total minutes of Exercise: 40 Manual Therapy: NA Total minutes of Manual Therapy: 0 HOME EXERCISE PROGRAM: Pendulum, scapular retraction, elbow and wrist flexion/ extension - Charges Timed Code Treatment Minutes: 40 Total Treatment Time: 55 Procedures billed for this date of service:: ex 3,cp Assessment: Patient progressing ,has increased passive motion ,except has muscle guarding more with external rotation today.This MANAGER OF PRODUCTION discussed the external rotation with supervising PT,and will utilize contract-relax method for increased motion.He is compliant to HEP,reminded him to protect the L shoulder,no AROM or lifting . Patient Education: Education of diagnosis, Body/Joint mechanics, Home Exercise Program, Home Safety, Activity Modification, Education of Plan of Care Patient demonstrates compliance with HEP?: Yes Short Term Goals Goal #1: Pt independent and compliant with HEP. Goal to be met by: 04/16/18 Progress towards Goal:: Progressing Goal #2: Left shoulder PROM WFL's. Goal to be met by: 04/16/18 Progress towards Goal:: Progressing Goal #3: Pt to demo. improved postural awareness. Goal to be met by: 04/16/18 Progress towards Goal:: Progressing Fpc Goals Goal #1: Pt knows HEP and to continue ex's to maintain level of function at D/C. Goal to be met by: 05/07/18 Progress towards goal: Progressing Goal #2: Score on UE functional scale improved to 40/80. Goal to be met by: 05/07/18 Goal #3: Left shoulder AROM WFL's to perform functional reaching. Goal to be met by: 05/07/18 Goal #4: L shoulder strength increased to maintain positions for completing ADL' s. Goal to be met by: 05/07/18 Plan PLAN OF CARE EXPIRES ON:: 05/07/18 ORDER # VISITS AND/OR THROUGH DATE: 05/07/18 PLAN: Continue PT to restore strength and good motion in the L shoulder.
--- NOTE | 2018-04-20 14:17 | RS.OPPTDN ---
Subjective Date of Note: 04/20/18 Visit #: 7 Date of Evaluation: 04/02/18 Payer Source: Medicaid Treatment Diagnosis: Left shoulder pain, Left shoulder stiffness, s/p Left TSA Current Subjective/complaints:: Patient reports multiple joint pain today due to arthritis and the rainy weather,but the L shoulder is better.He is doing his HEP regularly. Pain Assessment - Pain Description Pain Location: L shoulder Pain Description: Tightness, Dull, Aching Current Pain Intensity: <1 at rest - Heat/Cryotherapy Treatment: Cryotherapy (20 mins. after ex.) Interventions - Exercise/Activities/Manual Therapy Exercises/Activities: 40 mins. total of PROM ,patient in reclined position.Passive forward flexion to 155 degrees ,40 - 44 degrees of external rotation with arm at side,140 degrees of scaption.Multiple reps of each exercise.Finished with isometrics all directions,3/10 each. Total minutes of Exercise: 40 Manual Therapy: NA Total minutes of Manual Therapy: 0 HOME EXERCISE PROGRAM: Pendulum, scapular retraction, elbow and wrist flexion/ extension - Charges Timed Code Treatment Minutes: 40 Total Treatment Time: 60 Procedures billed for this date of service:: ex3,cp Assessment: Continues to have improved passive motion with less pain with stretches.The external rotation is better today,softer end feel.He is very motivated to improve and compliant to HEP. Patient Education: Education of diagnosis, Body/Joint mechanics, Home Exercise Program, Home Safety, Activity Modification, Education of Plan of Care Patient demonstrates compliance with HEP?: Yes Short Term Goals Goal #1: Pt independent and compliant with HEP. Goal to be met by: 04/16/18 Progress towards Goal:: Partially Met Goal #2: Left shoulder PROM WFL's. Goal to be met by: 04/16/18 Progress towards Goal:: Progressing Goal #3: Pt to demo. improved postural awareness. Goal to be met by: 04/16/18 Progress towards Goal:: Partially Met Weapons Engineer Goals Goal #1: Pt knows HEP and to continue ex's to maintain level of function at D/C. Goal to be met by: 05/07/18 Progress towards goal: Progressing Goal #2: Score on UE functional scale improved to 40/80. Goal to be met by: 05/07/18 Goal #3: Left shoulder AROM WFL's to perform functional reaching. Goal to be met by: 05/07/18 Goal #4: L shoulder strength increased to maintain positions for completing ADL' s. Goal to be met by: 05/07/18 Plan PLAN OF CARE EXPIRES ON:: 05/07/18 ORDER # VISITS AND/OR THROUGH DATE: 05/07/18 PLAN: Continue PT to increase passive motion ,progress to strengthening when appropriate per 's protocol.
--- NOTE | 2018-04-23 14:02 | RS.OPPTDN ---
Subjective Date of Note: 04/23/18 Visit #: 8 Date of Evaluation: 04/02/18 Payer Source: Medicaid Treatment Diagnosis: Left shoulder pain, Left shoulder stiffness, s/p Left TSA Current Subjective/complaints:: Patient reports doing his stretches on a daily basis.He had one episode of increased pain over the weekend due to pushing up from a chair,but no mcc pain. Pain Assessment - Pain Description Pain Location: L shoulder Pain Description: Dull, Aching Current Pain Intensity: 1-2/10 - Heat/Cryotherapy Treatment: Cryotherapy (15 mins. after exercises) Interventions - Exercise/Activities/Manual Therapy Exercises/Activities: 45 mins. total of PROM ,patient in reclined position.Passive scaption to 145 degrees ,55 degrees of external rotation with arm at side,165 degrees of scaption.Multiple reps of each exercise.Finished with isometrics all directions,3/10 each.Shoulder shrugs , circles forward/backward. Total minutes of Exercise: 45 Manual Therapy: NA HOME EXERCISE PROGRAM: Pendulum, scapular retraction, elbow and wrist flexion/ extension - Charges Timed Code Treatment Minutes: 45 Total Treatment Time: 60 Procedures billed for this date of service:: ex 3,cp Assessment: Patient continues to have better passive motion ,softer end feel present for external rotation .The pain level is lessening for longer duration. Patient Education: Education of diagnosis, Body/Joint mechanics, Home Exercise Program, Home Safety, Activity Modification, Education of Plan of Care Patient demonstrates compliance with HEP?: Yes Short Term Goals Goal #1: Pt independent and compliant with HEP. Goal to be met by: 04/16/18 Progress towards Goal:: Met Goal #2: Left shoulder PROM WFL's. Goal to be met by: 04/16/18 Progress towards Goal:: Progressing Goal #3: Pt to demo. improved postural awareness. Goal to be met by: 04/16/18 Progress towards Goal:: Partially Met Correction Goals Goal #1: Pt knows HEP and to continue ex's to maintain level of function at D/C. Goal to be met by: 05/07/18 Progress towards goal: Progressing Goal #2: Score on UE functional scale improved to 40/80. Goal to be met by: 05/07/18 Goal #3: Left shoulder AROM WFL's to perform functional reaching. Goal to be met by: 05/07/18 Goal #4: L shoulder strength increased to maintain positions for completing ADL' s. Goal to be met by: 05/07/18 Plan PLAN OF CARE EXPIRES ON:: 05/07/18 ORDER # VISITS AND/OR THROUGH DATE: 05/07/18 PLAN: Continue PT to restore motion and strength in the L shoulder for safe ADL' s.
--- NOTE | 2018-04-25 15:06 | RS.OPPTDN ---
Subjective Date of Note: 04/25/18 Visit #: 9 Date of Evaluation: 04/02/18 Payer Source: Medicaid Treatment Diagnosis: Left shoulder pain, Left shoulder stiffness, s/p Left TSA Current Subjective/complaints:: Patient pleased with his progress,is compliant to total shoulder protocol.He reports minimal pain at rest. Pain Assessment - Pain Description Pain Location: L shoulder Pain Description: Dull, Aching Current Pain Intensity: 1-2 - Heat/Cryotherapy Treatment: Cryotherapy (20 mins. after exercises.) Interventions - Exercise/Activities/Manual Therapy Exercises/Activities: 40 mins. total of PROM ,patient in sitting position.Passive flexion to 165 degrees ,55 degrees of external rotation with arm at side,165 degrees of scaption.Multiple reps of each exercise.Finished with isometrics all directions,3/10 each.Shoulder shrugs ,circles forward/ backward.Added passive internal rotation ,and extension today in pain free ROM. Total minutes of Exercise: 40 Manual Therapy: NA Total minutes of Manual Therapy: 0 HOME EXERCISE PROGRAM: Pendulum, scapular retraction, elbow and wrist flexion/ extension - Charges Timed Code Treatment Minutes: 40 Total Treatment Time: 60 Procedures billed for this date of service:: ex 3,cp Assessment: Patient progressing,initiated phase V of protocol today.He continues to hav increased motion in all directions passively.He has stretch discomfort ,but no sharp pain . Patient Education: Education of diagnosis, Body/Joint mechanics, Home Exercise Program, Home Safety, Activity Modification, Education of Plan of Care Patient demonstrates compliance with HEP?: Yes Short Term Goals Goal #1: Pt independent and compliant with HEP. Goal to be met by: 04/16/18 Progress towards Goal:: Met Goal #2: Left shoulder PROM WFL's. Goal to be met by: 04/16/18 Progress towards Goal:: Progressing Goal #3: Pt to demo. improved postural awareness. Goal to be met by: 04/16/18 Progress towards Goal:: Partially Met Senior Living Goals Goal #1: Pt knows HEP and to continue ex's to maintain level of function at D/C. Goal to be met by: 05/07/18 Progress towards goal: Progressing Goal #2: Score on UE functional scale improved to 40/80. Goal to be met by: 05/07/18 Goal #3: Left shoulder AROM WFL's to perform functional reaching. Goal to be met by: 05/07/18 Goal #4: L shoulder strength increased to maintain positions for completing ADL' s. Goal to be met by: 05/07/18 Plan PLAN OF CARE EXPIRES ON:: 05/07/18 ORDER # VISITS AND/OR THROUGH DATE: 05/07/18 PLAN: Continue PT to increase strength and motion in the L shoulder.
--- NOTE | 2018-04-25 16:33 | RS.PTSUM ---
Progress Note/Summary Date of Note: 04/25/18 Date of Evaluation: 04/02/18 Reporting Period for this Progress Note: 04/02/18 through 04/25/18 Current Complaints/Gains: Patient reports pain averages about 1/10. He continues to ice the shoulder and take Aleve. He reports being compliant with not actively using the Left shoulder per protocol. Objective Measurements/Presentation: Left shoulder PROM: flexion 165 degrees, scaption 165, ER 55 degrees with arm in neutral at his side. Muscle strength approximately 4-/5 in available range, with exception of ER 3+/5. G Codes: NA Source of G Code Score: NA - Short Term Goals Goal #1: Pt independent and compliant with HEP. Goal to be met by: 04/16/18 Progress towards Goal:: Met Goal #2: Left shoulder PROM WFL's. Goal to be met by: 05/09/18 Progress towards Goal:: Progressing Goal #3: Pt to demo. improved postural awareness. Goal to be met by: 04/16/18 Progress towards Goal:: Partially Met - Real Estate Transaction Manager Goals Goal #1: Pt knows HEP and to continue ex's to maintain level of function at D/C. Goal to be met by: 05/23/18 Progress towards goal: Progressing Goal #2: Score on UE functional scale improved to 40/80. Goal to be met by: 05/23/18 Goal #3: Left shoulder AROM WFL's to perform functional reaching. Goal to be met by: 05/23/18 Goal #4: L shoulder strength increased to maintain positions for completing ADL' s. Goal to be met by: 05/23/18 - Assessment Assessment of Improvement/Progress: Mr. Velez is progressing towards his goals. The physician's TSR protocol has limited Active shoulder ROM against gravity until week 6. He is now 4 weeks s/p surgery. Mr. Velez does not have functional AROM in all planes and also does not have the strength to maintain any functional shoulder positions to perform ADL's. He demosntrates great potential to gain functional AROM to the left shoulder and return to his prior level of function by progressing exercises appropriately per his surgeon' s protocol. - Plan Plan: Continue Plan of Care PLAN OF CARE EXPIRES ON:: 05/23/18 ORDER # VISITS AND/OR THROUGH DATE: 05/23/18
--- NOTE | 2018-04-27 16:28 | RS.OPPTDN ---
Subjective Date of Note: 04/27/18 Visit #: 10 Date of Evaluation: 04/02/18 Payer Source: Medicaid Treatment Diagnosis: Left shoulder pain, Left shoulder stiffness, s/p Left TSA Current Subjective/complaints:: Patient says he has been having less pain to the L shoulder lately. He says he is getting used to not having his sling. He states he is using ice at home and using Aleve. C/o pain mostly at the anterior L shoulder. - Heat/Cryotherapy Treatment: Cryotherapy (15 mins to the L shoulder in sitting) Interventions - Exercise/Activities/Manual Therapy Exercises/Activities: 40 mins. total of PROM to the L shoulder flex/ABD/scaption /short range IR. Manual isometric L shoulder x 5. Shoulder shrugs/scap adduction. Manual Therapy: NA HOME EXERCISE PROGRAM: Pendulum, scapular retraction, elbow and wrist flexion/ extension - Charges Timed Code Treatment Minutes: 40 Total Treatment Time: 55 Procedures billed for this date of service:: cp, ex3 Assessment: Patient james increased PROM with general muscle fatigue. He maintains low level to no pain at rest, which increases to 3-4/10 with ROM. Patient Education: Education of diagnosis, Body/Joint mechanics, Home Exercise Program, Education of Plan of Care Patient demonstrates compliance with HEP?: Yes Short Term Goals Goal #1: Pt independent and compliant with HEP. Goal to be met by: 04/16/18 Progress towards Goal:: Met Goal #2: Left shoulder PROM WFL's. Goal to be met by: 05/09/18 Progress towards Goal:: Progressing Goal #3: Pt to demo. improved postural awareness. Goal to be met by: 04/16/18 Progress towards Goal:: Partially Met Signal Repairer Goals Goal #1: Pt knows HEP and to continue ex's to maintain level of function at D/C. Goal to be met by: 05/23/18 Progress towards goal: Progressing Goal #2: Score on UE functional scale improved to 40/80. Goal to be met by: 05/23/18 Goal #3: Left shoulder AROM WFL's to perform functional reaching. Goal to be met by: 05/23/18 Goal #4: L shoulder strength increased to maintain positions for completing ADL' s. Goal to be met by: 05/23/18 Plan PLAN OF CARE EXPIRES ON:: 05/23/18 ORDER # VISITS AND/OR THROUGH DATE: 05/23/18 PLAN: Continue BIW next week to continue therex to the L shoulder
== END 2018-04-27 23:59 ==
PROVIDERS: ATTEND Orthopaedic Surgery
DX: M19.012 Primary osteoarthritis, left shoulder (principal); Z47.1 Aftercare following joint replacement surgery; Z96.612 Presence of left artificial shoulder joint; M25.512 Pain in left shoulder; M25.612 Stiffness of left shoulder, not elsewhere classified

== ENCOUNTER 2018-05-21 13:00 | Outpatient (RCR) ==
--- NOTE | 2018-05-02 14:54 | RS.OPPTDN ---
Subjective Date of Note: 05/02/18 Visit #: 11 Date of Evaluation: 04/02/18 Payer Source: Medicaid Treatment Diagnosis: Left shoulder pain, Left shoulder stiffness, s/p Left TSA Current Subjective/complaints:: No c/o.Pleased with his progress,is compliant to HEP. Pain Assessment - Pain Description Current Pain Intensity: 0 at rest Worst Pain Intensity: 3/10 during stretching - Heat/Cryotherapy Treatment: Cryotherapy (15 mins. after ex ) Interventions - Exercise/Activities/Manual Therapy Exercises/Activities: 40 mins. total of L shoulder PROM/AAROM ,added light resistance(1.5 # ) for deltoid and RTC in gravity reduced position.Isometrics all directions.Scapular series of shrugs circles in CW and CCW.3/ 10-15 reps. each exercise. Total minutes of Exercise: 40 Manual Therapy: NA Total minutes of Manual Therapy: 0 HOME EXERCISE PROGRAM: Pendulum, scapular retraction, elbow and wrist flexion/ extension - Charges Timed Code Treatment Minutes: 40 Total Treatment Time: 55 Procedures billed for this date of service:: ex 3,cp Assessment: Patient progressing well,has increased strength in the L shoulder as indicated being able to tolerate light resistance with deltoid and RTC muscles.He has stretch discomfort only today.He is 5 weeks post-op,restricted to passive or assistance with exercises at this time. Patient Education: Education of diagnosis, Body/Joint mechanics, Home Exercise Program, Home Safety, Activity Modification, Education of Plan of Care Patient demonstrates compliance with HEP?: Yes Short Term Goals Goal #1: Pt independent and compliant with HEP. Goal to be met by: 04/16/18 Progress towards Goal:: Met Goal #2: Left shoulder PROM WFL's. Goal to be met by: 05/09/18 Progress towards Goal:: Progressing Goal #3: Pt to demo. improved postural awareness. Goal to be met by: 04/16/18 Progress towards Goal:: Partially Met Shelter Goals Goal #1: Pt knows HEP and to continue ex's to maintain level of function at D/C. Goal to be met by: 05/23/18 Progress towards goal: Partially Met Goal #2: Score on UE functional scale improved to 40/80. Goal to be met by: 05/23/18 Goal #3: Left shoulder AROM WFL's to perform functional reaching. Goal to be met by: 05/23/18 Goal #4: L shoulder strength increased to maintain positions for completing ADL' s. Goal to be met by: 05/23/18 Progress towards goal: Progressing Plan PLAN OF CARE EXPIRES ON:: 05/23/18 ORDER # VISITS AND/OR THROUGH DATE: 05/23/18 PLAN: Continue PT to increase motion ,increase strength ni L shoulder for functional ADL's.
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
--- NOTE | 2018-05-07 14:28 | RS.OPPTDN ---
Subjective Date of Note: 05/07/18 Visit #: 13 Date of Evaluation: 04/02/18 Payer Source: Medicaid Treatment Diagnosis: Left shoulder pain, Left shoulder stiffness, s/p Left TSA Current Subjective/complaints:: Patient reports aching today ,but low intensity.He is doing his HEP on a regular basis. Pain Assessment - Pain Description Pain Location: L shoulder Pain Description: Dull, Aching Current Pain Intensity: 09/06 - Heat/Cryotherapy Treatment: Cryotherapy (15 mins.after exercises) Interventions - Exercise/Activities/Manual Therapy Exercises/Activities: 40 mins. total L shoulder, 3/15 reps. , in reclined position for AAROM ,using 3 # wand for chest press ,shoulder flexion to 90 degrees,IR/ER using wand in neutral position.Biceps curls with 3# wand .Isometrics all directions.Passive stretching in all directions.Deltoid and RTC strengthening in gravity reduced position. Total minutes of Exercise: 40 Manual Therapy: NA Total minutes of Manual Therapy: 0 HOME EXERCISE PROGRAM: Pendulum, scapular retraction, elbow and wrist flexion/ extension - Charges Timed Code Treatment Minutes: 40 Total Treatment Time: 55 Procedures billed for this date of service:: ex 3,cp Assessment: Patient will be 6 weeks post-op ni two days,is now beginning the light resistance phase of the Dr's. protocol ,will progress the resistance as he is allowed.He needs assist to stabilize the L shoulder,as the eccentric motions still elicit pain due to weakness and recency of the surgery.He can benefit from supervised stretching for external rotation ,as this motion is moderately tight. Patient Education: Education of diagnosis, Body/Joint mechanics, Home Exercise Program, Home Safety, Activity Modification, Education of Plan of Care Patient demonstrates compliance with HEP?: Yes Short Term Goals Goal #1: Pt independent and compliant with HEP. Goal to be met by: 04/16/18 Progress towards Goal:: Met Goal #2: Left shoulder PROM WFL's. Goal to be met by: 05/09/18 Progress towards Goal:: Partially Met Goal #3: Pt to demo. improved postural awareness. Goal to be met by: 04/16/18 Progress towards Goal:: Partially Met Retirement Goals Goal #1: Pt knows HEP and to continue ex's to maintain level of function at D/C. Goal to be met by: 05/23/18 Progress towards goal: Partially Met Goal #2: Score on UE functional scale improved to 40/80. Goal to be met by: 05/23/18 Goal #3: Left shoulder AROM WFL's to perform functional reaching. Goal to be met by: 05/23/18 Progress towards goal: Progressing Goal #4: L shoulder strength increased to maintain positions for completing ADL' s. Goal to be met by: 05/23/18 Progress towards goal: Progressing Plan PLAN OF CARE EXPIRES ON:: 05/23/18 ORDER # VISITS AND/OR THROUGH DATE: 05/23/18 PLAN: Continue skilled PT to increase ROM and strength in L shoulder to safely do ADL's.
--- NOTE | 2018-05-09 14:51 | RS.OPPTDN ---
Subjective Date of Note: 05/09/18 Visit #: 14 Date of Evaluation: 04/02/18 Payer Source: Medicaid Treatment Diagnosis: Left shoulder pain, Left shoulder stiffness, s/p Left TSA Current Subjective/complaints:: Patient pleased with his progress.He is compliant to HEP.He also understands the restrictions of the total shoulder protocol,is 6 weeks post - op ,just beginning light resistance exercises. Pain Assessment - Pain Description Pain Location: L shoulder Pain Description: Tightness, Dull, Aching Current Pain Intensity: 2/10 - Heat/Cryotherapy Treatment: Cryotherapy (15 mns. after exercises) Interventions - Exercise/Activities/Manual Therapy Exercises/Activities: 45 mins. total ,L shoulder, 3/15 reps. , in reclined position for AAROM ,using 3 # wand for chest press ,shoulder flexion to 90 degrees,IR/ER using wand in neutral position.Biceps curls with 3# wand .Isometrics all directions.Passive stretching in all directions.Deltoid and RTC strengthening in gravity reduced position. Total minutes of Exercise: 45 Manual Therapy: NA Total minutes of Manual Therapy: 0 HOME EXERCISE PROGRAM: Pendulum, scapular retraction, elbow and wrist flexion/ extension - Objective Findings Observations,measurements,etc.: 165 degrees for flexion /scaption,IR is 65,ER is 55 degrees.Abduction is 100 degrees with assist,extension is 55 degrees. - Charges Timed Code Treatment Minutes: 45 Total Treatment Time: 60 Procedures billed for this date of service:: ex 3,cp Short Term Goals Goal #1: Pt independent and compliant with HEP. Goal to be met by: 04/16/18 Progress towards Goal:: Met Goal #2: Left shoulder PROM WFL's. Goal to be met by: 05/09/18 Progress towards Goal:: Partially Met Goal #3: Pt to demo. improved postural awareness. Goal to be met by: 04/16/18 Progress towards Goal:: Partially Met Cv Tech Goals Goal #1: Pt knows HEP and to continue ex's to maintain level of function at D/C. Goal to be met by: 05/23/18 Progress towards goal: Partially Met Goal #2: Score on UE functional scale improved to 40/80. Goal to be met by: 05/23/18 (35/80) Progress towards goal: Progressing Goal #3: Left shoulder AROM WFL's to perform functional reaching. Goal to be met by: 05/23/18 Progress towards goal: Progressing Goal #4: L shoulder strength increased to maintain positions for completing ADL' s. Goal to be met by: 05/23/18 Progress towards goal: Progressing Plan PLAN OF CARE EXPIRES ON:: 05/23/18 ORDER # VISITS AND/OR THROUGH DATE: 05/23/18 PLAN: Continue PT to increase motion and strength in the L shoulder,return to highest level of function possible.
--- NOTE | 2018-05-09 15:34 | RS.PTSUM ---
Progress Note/Summary Date of Note: 05/09/18 Date of Evaluation: 04/02/18 Number of Visits: 14 Current Complaints/Gains: Mr. Velez reports being pleased with his progress. He is doing his HEP as instructed. He demonstrates understanding of his restrictions of TSA protocol. Scores UE functional scale 35/80, 56.25% impairment. Objective Measurements/Presentation: Left shoulder AAROM in supine: flexion 165 degrees, scaption 165 degrees, ER 55 degrees (in neutral), extension 55 degrees , ABD 95 degrees. G Codes: NA Source of G Code Score: NA - Short Term Goals Goal #1: Pt independent and compliant with HEP. Goal to be met by: 04/16/18 Progress towards Goal:: Met Goal #2: Left shoulder PROM WFL's. Goal to be met by: 05/09/18 Progress towards Goal:: Partially Met Goal #3: Pt to demo. improved postural awareness. Goal to be met by: 04/16/18 Progress towards Goal:: Partially Met - Braille Teacher Goals Goal #1: Pt knows HEP and to continue ex's to maintain level of function at D/C. Goal to be met by: 05/23/18 Progress towards goal: Partially Met Goal #2: Score on UE functional scale improved to 40/80. Goal to be met by: 05/23/18 Goal #3: Left shoulder AROM WFL's to perform functional reaching. Goal to be met by: 05/23/18 Progress towards goal: Progressing Goal #4: L shoulder strength increased to maintain positions for completing ADL' s. Goal to be met by: 05/23/18 Progress towards goal: Progressing - Assessment Assessment of Improvement/Progress: Mr. Velez has progressed with therapy. He is just beginning exercises with resistance, per TSA protocol. He is unable to perform functional AROM against gravity or able to maintain function positions with the UE to perform ADL's as needed. He demonstrates potential to gain further Mitchell with all selfcare and ADL's with progressed skilled therapy per TSA protocol. - Plan Plan: Continue Plan of Care PLAN OF CARE EXPIRES ON:: 05/23/18 ORDER # VISITS AND/OR THROUGH DATE: 05/23/18
--- NOTE | 2018-05-14 14:24 | RS.OPPTDN ---
Subjective Date of Note: 05/14/18 Visit #: 15 Date of Evaluation: 04/02/18 Payer Source: Medicaid Treatment Diagnosis: Left shoulder pain, Left shoulder stiffness, s/p Left TSA Current Subjective/complaints:: Patient pleased with his progress.He is compliant to HEP,still reports the external rotation is the most difficult,but is noticing it is becoming easier for certain tasks,such as reaching behind when putting on his belt,or pulling up clothing. Pain Assessment - Pain Description Pain Location: L sholuder Pain Description: Tightness, Dull, Aching, Chronic Current Pain Intensity: not rated - Heat/Cryotherapy Treatment: Cryotherapy (10 mins. after exercises) Interventions - Exercise/Activities/Manual Therapy Exercises/Activities: 45 mins. total to L shoulder,Seated wand exercises for overhead flexion,scaption /abduction.Reclined AROM all directions,with 2 # resistance ,except for external rotation.Contract-relax method to internal rotators,to increase the external rotation.ER improved from 55 degrees to 63 degrees passively with L UE abducted approx. 55 degrees. Total minutes of Exercise: 45 Manual Therapy: NA Total minutes of Manual Therapy: 0 HOME EXERCISE PROGRAM: Pendulum, scapular retraction, elbow and wrist flexion/ extension - Charges Timed Code Treatment Minutes: 45 Total Treatment Time: 55 Procedures billed for this date of service:: ex 3,cp Assessment: Patient has increased strength ,improved control of eccentric motions .He is able to actively reach to the back of his head ,and reach behind his back in a short ROM.He is compliant to HERP,has good knowledge of pain control. Patient Education: Education of diagnosis, Body/Joint mechanics, Home Exercise Program, Home Safety, Activity Modification, Education of Plan of Care Patient demonstrates compliance with HEP?: Yes Short Term Goals Goal #1: Pt independent and compliant with HEP. Goal to be met by: 04/16/18 Progress towards Goal:: Met Goal #2: Left shoulder PROM WFL's. Goal to be met by: 05/09/18 Progress towards Goal:: Partially Met Goal #3: Pt to demo. improved postural awareness. Goal to be met by: 04/16/18 Progress towards Goal:: Partially Met Donkey Doctor Goals Goal #1: Pt knows HEP and to continue ex's to maintain level of function at D/C. Goal to be met by: 05/23/18 Progress towards goal: Met Goal #2: Score on UE functional scale improved to 40/80. Goal to be met by: 05/23/18 Goal #3: Left shoulder AROM WFL's to perform functional reaching. Goal to be met by: 05/23/18 Progress towards goal: Progressing Goal #4: L shoulder strength increased to maintain positions for completing ADL' s. Goal to be met by: 05/23/18 Progress towards goal: Progressing Plan PLAN OF CARE EXPIRES ON:: 05/23/18 ORDER # VISITS AND/OR THROUGH DATE: 05/23/18 PLAN: Continue PT to stretch and strengthen the L shoulder ,return to highest level of function possible.
--- NOTE | 2018-05-17 14:15 | RS.OPPTDN ---
Subjective Date of Note: 05/17/18 Visit #: 16 Date of Evaluation: 04/02/18 Payer Source: Medicaid Treatment Diagnosis: Left shoulder pain, Left shoulder stiffness, s/p Left TSA Current Subjective/complaints:: Pleased with his progress,reports less pain with use of the L UE.He has good awareness for safety ,is compliant to James protocol. Pain Assessment - Pain Description Pain Location: L shoulder Pain Description: Dull Pain Description: minimal - Heat/Cryotherapy Treatment: Cryotherapy (10 mins. after exercises) Interventions - Exercise/Activities/Manual Therapy Exercises/Activities: 50 mins. total of pasive stretches in all directions, resistive exercises using yellow theraband for shoulder flex/ext,IR /ER , postural pulbacks . Total minutes of Exercise: 50 Manual Therapy: NA HOME EXERCISE PROGRAM: Pendulum, scapular retraction, elbow and wrist flexion/ extension - Charges Timed Code Treatment Minutes: 50 Total Treatment Time: 60 Procedures billed for this date of service:: ex 3,cp Assessment: Progressing well,tolerates increased resistive exercises ,reports fatigue only,no sharp pain ni functional ROM.He does have sharp pain at end range of ER as he fatigues.We discussed to continue to do all exercises in PAIN FREE ROM. Patient Education: Education of diagnosis, Body/Joint mechanics, Home Exercise Program, Home Safety, Activity Modification, Education of Plan of Care Patient demonstrates compliance with HEP?: Yes Short Term Goals Goal #1: Pt independent and compliant with HEP. Goal to be met by: 04/16/18 Progress towards Goal:: Met Goal #2: Left shoulder PROM WFL's. Goal to be met by: 05/09/18 Progress towards Goal:: Met Goal #3: Pt to demo. improved postural awareness. 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 Goal to be met by: 05/23/18 Progress towards goal: Met Goal #2: Score on UE functional scale improved to 40/80. Goal to be met by: 05/23/18 Progress towards goal: Progressing Goal #3: Left shoulder AROM WFL's to perform functional reaching. Goal to be met by: 05/23/18 Progress towards goal: Progressing Goal #4: L shoulder strength increased to maintain positions for completing ADL' s. Goal to be met by: 05/23/18 Progress towards goal: Progressing Plan PLAN OF CARE EXPIRES ON:: 05/23/18 ORDER # VISITS AND/OR THROUGH DATE: 05/23/18 PLAN: Continue PT for ,focusing on increased resistance for strengthening to achieve safe functional reaching.
--- NOTE | 2018-05-21 13:57 | RS.OPPTDN ---
Subjective Date of Note: 05/21/18 Visit #: 17 Date of Evaluation: 04/02/18 Payer Source: Medicaid Treatment Diagnosis: Left shoulder pain, Left shoulder stiffness, s/p Left TSA Current Subjective/complaints:: Patient reports the rainy weather is causing him more aching in general ,as he has multiple joint arthritis.He is pleased with the progress of the L shoulder. Pain Assessment - Pain Description Pain Location: L shoulder Pain Description: Dull, Aching, Chronic Pain Description: stiffness Current Pain Intensity: not rated Interventions - Exercise/Activities/Manual Therapy Exercises/Activities: 45 mins. total of passive stretches in all directions, resistive exercises using yellow theraband for shoulder flex/ext,IR /ER , postural pulbacks . Also did wand eerciseswith 5# resistance in reclined position of chest press,and overhead flexion with 2 # dumbbell for 3/10 scaption . Total minutes of Exercise: 45 Manual Therapy: NA Total minutes of Manual Therapy: 0 HOME EXERCISE PROGRAM: Pendulum, scapular retraction, elbow and wrist flexion/ extension - Charges Timed Code Treatment Minutes: 45 Total Treatment Time: 45 Procedures billed for this date of service:: ex 3 Assessment: Heather continues to have increased strength and motion of the L shoulder,better control of eccentric motions.He is beginning t use tje L UE more for ADL's and reaching objects ,understands to not lift heavy objects at this time.He is compliant to all recommendations of the therapy staff. Patient Education: Education of diagnosis, Body/Joint mechanics, Home Exercise Program, Home Safety, Activity Modification, Education of Plan of Care Patient demonstrates compliance with HEP?: Yes Short Term Goals Goal #1: Pt independent and compliant with HEP. Goal to be met by: 04/16/18 Progress towards Goal:: Met Goal #2: Left shoulder PROM WFL's. Goal to be met by: 05/09/18 Progress towards Goal:: Met Goal #3: Pt to demo. improved postural awareness. Goal to be met by: 04/16/18 Progress towards Goal:: Met Doll Eye Setter Goals Goal #1: Pt knows HEP and to continue ex's to maintain level of function at D/C. Goal to be met by: 05/23/18 Progress towards goal: Met Goal #2: Score on UE functional scale improved to 40/80. Goal to be met by: 05/23/18 Progress towards goal: Progressing Goal #3: Left shoulder AROM WFL's to perform functional reaching. Goal to be met by: 05/23/18 Progress towards goal: Partially Met Goal #4: L shoulder strength increased to maintain positions for completing ADL' s. Goal to be met by: 05/23/18 Progress towards goal: Progressing Plan PLAN OF CARE EXPIRES ON:: 05/23/18 ORDER # VISITS AND/OR THROUGH DATE: 05/23/18 PLAN: Cont. PT to achieve maximum motion/strength in the L shoulder.
--- NOTE | 2018-05-23 10:30 | RS.QUICKDC ---
Discharge from PT Date of Discharge: 05/23/18 Number of Visits: 17 Reason for Discharge: Patient called and cancelled ,not feeling well.He is aware that today was the last session due to good progress. He has good understanding of HEP.
== END 2018-05-27 23:59 ==
PROVIDERS: ATTEND Orthopaedic Surgery
DX: M19.012 Primary osteoarthritis, left shoulder (principal)

== ENCOUNTER 2018-05-28 09:30 | Outpatient (CLI) | END 2018-05-28 09:31 | disposition home or self-care (01) | LOC: LAB 09:30 | PROVIDERS: ATTEND Internal Medicine | DX: E78.5 Hyperlipidemia, unspecified (principal); I10 Essential (primary) hypertension; Z79.899 Other long term (current) drug therapy | CPT/HCPCS: 36415; 80053; 80061; 83036; 84439; 84443; 85025 ==

== ENCOUNTER 2018-07-05 12:07 | Outpatient (CLI) ==
--- NOTE | 2018-07-05 13:10 | DI ---
EXAM: Five views of the cervical spine. History: Cervical neck pain. Comparison: CT cervical spine 02/24/2018 Findings: No acute fracture or subluxation of the cervical spine. No prevertebral soft tissue swell ing. Predental space is not widened. Moderate to severe disc space narrowing again seen at C5-6 and moderate disc space narrowing seen at C6-7 with endplate sclerosis and osteophyte formation. Mild t o moderate disc space narrowing seen at C4-5. The oblique images demonstrate moderate to severe mult ilevel bilateral bony neural foraminal narrowing secondary to uncovertebral and facet hypertrophy. Fa irly heavy atherosclerotic vascular calcifications of the bilateral carotid arteries. Impression: 1. No acute osseous abnormality of the cervical spine. 2. Degenerative changes of the cervical spine with moderate to severe degenerative disc disease at C5 -6 and moderate to severe multilevel bilateral bony neural foraminal narrowing.
--- NOTE | 2018-07-05 13:15 | DI ---
EXAM: Five views of the lumbar spine. History: Lower back pain. Findings: Atherosclerotic vascular calcifications. Osteopenia. Partially visualized left hip arthr oplasty hardware. No acute fracture. 2 mm retrolisthesis of L1 on L2 and L2 on L3 most likely degen erative in nature. Moderate multilevel degenerative disc space narrowing with endplate sclerosis and osteophyte formation. Moderate facet hypertrophy within the lower lumbar spine. Mild to moderate na rrowing the visualized right hip joint. Impression: 1. No acute osseous abnormality of the lumbar spine. 2. Moderate degenerative changes. 3. Atherosclerotic vascular disease
--- NOTE | 2018-07-05 13:22 | DI ---
EXAM: Two views of the chest. History: Cough. Comparison: Chest radiograph 02/24/2018 Findings: Heart is borderline enlarged. No focal consolidation. No appreciable pleural fluid and no pneumothorax. No acute osseous abnormalities. Left shoulder arthroplasty hardware. Impression: Borderline cardiomegaly without acute disease in the chest
== END 2018-07-05 12:08 | disposition home or self-care (01) ==
LOC: RAD 12:07
PROVIDERS: ATTEND Internal Medicine
DX: M54.9 Dorsalgia, unspecified (principal); R05 Cough; M54.2 Cervicalgia

== ENCOUNTER 2018-09-05 10:41 | Outpatient (CLI) ==
[2018-08-10 00:02] VITALS: BMI 27.3
== END 2018-09-05 10:42 | disposition home or self-care (01) ==
LOC: LAB 10:41
PROVIDERS: ATTEND Internal Medicine
DX: E78.5 Hyperlipidemia, unspecified (principal); I10 Essential (primary) hypertension; K21.9 Gastro-esophageal reflux disease without esophagitis
CPT/HCPCS: 36415; 80053; 80061; 84439; 84443; 85025

== ENCOUNTER 2018-09-27 13:00 | Outpatient (RCR) ==
[2018-08-10 00:02] VITALS: BMI 27.3
--- NOTE | 2018-09-24 08:49 | RS.OPPTEV2 ---
Date of Note: 09/21/18 Visit #: 1 Number of visits approved by Insurance: pending Date of Evaluation: 09/21/18 Payer Source: Medicaid Surgery Performed?: No Treatment Diagnosis: Low back pain, trunk and hip weakness, gait abnormality. History of Condition/Mechanism of Injury:: Reports increased back pain since having multiple failed left JACINTO in 2016. Prior Level of Function.....Patient was independent with: ADL's, Self Care, Ambulation/Mobility, Community Integration/Access Functional Limitations: Standing, Bending, Squatting, Ambulation, Community Access/Integration Current Subjective/complaints:: Patient reports low back pain that becomes debilitating 4-5 times a year. States he just began Pain Management. He hopes to get some relief of pain. He reports weakness in the left LE since his hip surgeries. He has not had any injections into the lumbar spine at this time. He reports walking causes the most pain in his back. He does not have much discomfort in sitting. Reports more of his pain is toward the left side. He is able to get some relief of back pain with laying on his right side with a pillow between his kneees. States he has difficulty walking, and has fallen in the past few months. Reports pain with walking community distances. Medical History Surgical History Comments:: Left TSA, Left orchiectomy , Left JACINTO in 2016: consisted of initial surgery then the hip dislocated. It was reduced under anesthesia. The hip dislocated again and surgery was performed to insert a larger ball. Then the hip got infected and required another surgery. These 3 surgeries took place within a five week period. Smoking Status: Former smoker Diagnostic Testing/Imaging:: Lumbar spine X ray on 07/05/18,. Impression: 1. No acute osseous abnormality of the lumbar spine. 2. Moderate degenerative changes. 3. Atherosclerotic vascular disease. Findings describe 2mm retrolisthesis of L1 on L2 and L2 on L3, most likely degenerative in nature. Moderate multilevel degenerative disc space narrowing with endplate sclerosis and osteophyte formation. Moderate facet hypertrophy within the lower lumbar spine. Mild to moderate narrowing the visualized right hip joint. Hx Home Medications: Lexapro, [place], Tramadol, ,Amlodipine, pravastatin, Patient's Goals: His goal is to get some relief of back pain. Pain Assessment - Pain Description Pain Location: low back Current Pain Intensity: 6/10 Worst Pain Intensity: 8/10 Functional Outcome Measure Oswestry LBP: 62 - G Codes & Severity Modifier G Codes & Modifier: NA Source of G Code score: NA Observation - Observation Posture: Forward Head, Decreased Lumbar Lordosis Gait - Gait Pattern Gait Comments: Pt ambulates without an assistive device, with left hip internally rotated. He appears very stiff with his mobility. He exhibits minimal trunk rotation with his gait and decreased hip and knee flexion. - ROM Lumbar Flexion: Hand reach to Mid-Shins Comments: He is cautious with lumbar flexion in standing, as he appears to protect the left hip. Lumbar extension ~50% of normal. Sidebending bilaterally - Strength Trunk Lateral Flexion: 4 Good Trunk Rotation: 4 Good Comments: Left hip strength flexion and adduction 4 /5. Extension, abduction and IR 4-/5, ER 3+ to 4/5. Left knee 4+/5, ankle 5/5. Right hip 4+/5 throughout, knee 4+ to 5/5 , ankle 5/5. - Special Tests SLR Test: Negative Left, Negative Right Seated Dural Stretch Test: Negative Left, Negative Right SI Joint Compression: Negative SI Joint Distraction: Negative Balance - Sitting Balance Static Sitting Balance: Good Dynamic Sitting Balance: Good - Standing Balance Static Standing Balance: Good Dynamic Standing Balance: Good (-) Additional Comments: Additional Comments: Right SLR to 35 degrees, Left SLR to 40 degrees. Interventions - Exercise/Activities/Manual Therapy Exercises/Activities: Na Manual Therapy: NA HOME EXERCISE PROGRAM: None given at eval - Charges Timed Code Treatment Minutes: 0 mins Total Treatment Time: 45 mins Procedures billed for this date of service:: EVAL Medium EVALUATION COMPLEXITY LEVEL EVALUATION COMPLEXITY LEVEL: HISTORY: Medium (Hx left hip JACINTO surgeries, chronic low back pain, left TSA), EXAM OF BODY SYSTEMS: Medium (balance, MS, ROM , sensation), CLINICAL PRESENTATION: Medium, CLINICAL DECISION MAKING: Medium Assessment Assessment: Mr. Velez presents to therapy with a diagnosis of low back pain. He reports limited tolerance for ambulating community distances due to pain. He exhibits weakness at the left hip and trunk, along with decreased flexibility of the trunk extensor muscles and hamstrings. He demonstrates to be at a moderate risk for falls per Tinetti Assessment. He exhibits good potential to get some relief of low back pain and improved gait pattern with stretching and strengthening exericses for the trunk and LE's. Patient Education: Education of diagnosis, Body/Joint mechanics, Education of Plan of Care Rehab Potential: Good Short Term Goals Goal #1: Pt independent and compliant with HEP. Goal to be met by: 10/05/18 Goal #2: SLR bilaterally to 45 degrees. Goal to be met by: 10/05/18 Goal #3: Left hip abduction and ER 4/5. Goal to be met by: 10/05/18 Half-Way Goals Goal #1: Pt knows HEP and to continue ex's to maintain level of function at D/C. Goal to be met by: 11/05/18 Goal #2: Score on Oswestry improved to 40. Goal to be met by: 11/05/18 Goal #3: Pt to amb community distances with minimal low back pain. Goal to be met by: 11/05/18 Goal #4: Pt to amb. with minimal gait deviations and good safety. Goal to be met by: 11/05/18 Plan - Treatment to be Provided Procedures: Therapeutic Exercises, Therapeutic Activity, Gait Training, Neuromuscular Rehab, Patient Education Modalities: Electrical Stimulation, Ultrasound/Phonophoresis, Cryotherapy, Hot Packs - Treatment Plan Frequency: 2 X week Duration: 6 weeks Dates of Supervisor Rice Milling Goals: 11/05/18 Expiration date of current Insurance Approval:: NA - Treatment Code (1) Low back pain Code(s): M54.5 - LOW BACK PAIN Qualifiers: Chronicity: chronic Back pain laterality: unspecified Sciatica presence: unspecified whether sciatica present Qualified Code(s): M54.5 - Low back pain ; G89.29 - Other chronic pain (2) History of total hip arthroplasty Code(s): Z96.649 - PRESENCE OF UNSPECIFIED ARTIFICIAL HIP JOINT Qualifiers: Laterality: left Qualified Code(s): Z96.642 - Presence of left artificial hip joint (3) Gait abnormality Code(s): R26.9 - UNSPECIFIED ABNORMALITIES OF GAIT AND MOBILITY Comments: R26.9
--- NOTE | 2018-09-25 09:42 | RS.CXNS ---
Date of scheduled appointment: 09/25/18 Type: Cancel Reason for Cancel/NS: Called , is sick today.
--- NOTE | 2018-09-27 14:35 | RS.OPPTDN ---
Subjective Date of Note: 09/27/18 Visit #: 2 Number of visits approved by Insurance: pending Date of Evaluation: 09/21/18 Payer Source: Medicaid Treatment Diagnosis: Low back pain, trunk and hip weakness, gait abnormality. Current Subjective/complaints:: Patient reports the extreme cold weather causes multiple joint pain.He enters clinic with flexed posture today/ Pain Assessment - Pain Description Pain Location: back /hips Pain Description: Dull, Aching, Chronic Current Pain Intensity: 4/10 - Treatment Modality: Electrical Stim Unattended Parameters/Method Applied: 20 mis, high volt to lumbar ,channel 1 @ 80-95 pv, channel 2 @ 105-120 pv. Patient Position: Right Sidelying - Heat/Cryotherapy Treatment: Hot Pack (concurrent with e-stim) Interventions - Exercise/Activities/Manual Therapy Exercises/Activities: 20 mins. gentle stretches of 90/90 hamstring stretches , SKTC,DKTC,pelvic tilts.Recommended 2-3 x/day as tolerated. Total minutes of Exercise: 20 Manual Therapy: NA Total minutes of Manual Therapy: 0 HOME EXERCISE PROGRAM: None given at eval - Charges Timed Code Treatment Minutes: 20 Total Treatment Time: 40 Procedures billed for this date of service:: hp,e-stim,ex Assessment: Patient has moderate tightness in bilateral hamstrings,also is guareded withh knees to chest exercises due to pain today.He reports he is at times more comfortable with legs into full extension ,but then re-positions with pillows under the knees.He has poor tolerance for prolonged sitting or standing at home ,frequently changes positions for pain relief.Currently ,he reports the most comfortable position is resting on the bed. Patient Education: Education of diagnosis, Body/Joint mechanics, Home Exercise Program, Home Safety, Activity Modification, Education of Plan of Care Short Term Goals Goal #1: Pt independent and compliant with HEP. Goal to be met by: 10/05/18 Progress towards Goal:: Progressing Goal #2: SLR bilaterally to 45 degrees. Goal to be met by: 10/05/18 Goal #3: Left hip abduction and ER 4/5. 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 Goal to be met by: 11/05/18 Goal #2: Score on Oswestry improved to 40. Goal to be met by: 11/05/18 Goal #3: Pt to amb community distances with minimal low back pain. Goal to be met by: 11/05/18 Goal #4: Pt to amb. with minimal gait deviations and good safety. Goal to be met by: 11/05/18 Plan Dates of Heading Matcher And Assembler Goals: 11/05/18 Expiration date of current Insurance Approval:: pending PLAN: Cont. skilled PT to reduce /elimnate LBP.
== END 2018-09-27 23:59 ==
PROVIDERS: ATTEND Pain Medicine Interventional Pain Medicine
DX: M47.816 Spondylosis without myelopathy or radiculopathy, lumbar region (principal); M51.36 Other intervertebral disc degeneration, lumbar region; M54.5 Low back pain; G89.29 Other chronic pain; Z96.642 Presence of left artificial hip joint; R26.9 Unspecified abnormalities of gait and mobility

== ENCOUNTER 2018-10-11 13:00 | Outpatient (RCR) ==
[2018-08-10 00:02] VITALS: BMI 27.3
--- NOTE | 2018-10-02 14:30 | RS.OPPTDN ---
Subjective Date of Note: 10/02/18 Visit #: 3 Number of visits approved by Insurance: pending Date of Evaluation: 09/21/18 Payer Source: Medicaid Treatment Diagnosis: Low back pain, trunk and hip weakness, gait abnormality. Current Subjective/complaints:: Patient reports the rainy weather has elevated his pain today at multiple joint sites.Patient understands to modify the HEP due to history of 3 L hip surgeries in 2016. Pain Assessment - Pain Description Pain Location: lumbar and L LE Pain Description: Radiating, Sharp, Dull, Aching, Chronic Pain Description: radiating into the buttocks and L posterior thigh down to knee Current Pain Intensity: 4/10 - Treatment Modality: Electrical Stim Unattended Parameters/Method Applied: 20 mins. high volt ,channel 1 upper lumbar @ 150 pv, channel 2 lower lumbar/ SI @ 75 pv. Patient Position: Right Sidelying Interventions - Exercise/Activities/Manual Therapy Exercises/Activities: 25 mins. gentle stretches of 90/90 hamstring stretches , MODIFIED SKTC,DKTC;pelvic tilts, R side-lying piriformis stretches,LTR in hooklying.NO L HIP FLEXION PAST 90 DEGREES Total minutes of Exercise: 25 Manual Therapy: NA Total minutes of Manual Therapy: 0 HOME EXERCISE PROGRAM: Pelvic tilts,SKTC,DKTC,90/90 hamstring stretches,LTR, gravity assisted ( Right side-lying ) piriformis stretches.Recommend 2-3x/day as tolerated,in PAIN FREE ROM. - Charges Timed Code Treatment Minutes: 25 Total Treatment Time: 45 Procedures billed for this date of service:: e-stim,ex 2 Assessment: Patient is more guarded today with all exercises due to elevated pain with AROM.He is attentive and motivated to improve ,but also has good understanding to avoid the " no pain ,no pain " theory.He ambulates with wide MICHAEL,flexed trunk ,minimal foot clearance. Patient Education: Education of diagnosis, Body/Joint mechanics, Home Exercise Program, Home Safety, Activity Modification, Education of Plan of Care Patient demonstrates compliance with HEP?: Yes Short Term Goals Goal #1: Pt independent and compliant with HEP. Goal to be met by: 10/05/18 Progress towards Goal:: Progressing Goal #2: SLR bilaterally to 45 degrees. Goal to be met by: 10/05/18 Goal #3: Left hip abduction and ER 4/5. 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 Goal to be met by: 11/05/18 Progress towards goal: Progressing Goal #2: Score on Oswestry improved to 40. Goal to be met by: 11/05/18 Goal #3: Pt to amb community distances with minimal low back pain. Goal to be met by: 11/05/18 Goal #4: Pt to amb. with minimal gait deviations and good safety. Goal to be met by: 11/05/18 Plan Dates of Carton Packaging Machine Operator Goals: 11/05/18 Expiration date of current Insurance Approval:: pending PLAN: Cont. skilled PT to reduce/eliminate sciatic and lumbar pain.
--- NOTE | 2018-10-09 13:55 | RS.OPPTDN ---
Subjective Date of Note: 10/04/18 Visit #: 4 Number of visits approved by Insurance: pending Date of Evaluation: 09/21/18 Payer Source: Medicaid Treatment Diagnosis: Low back pain, trunk and hip weakness, gait abnormality. Current Subjective/complaints:: Patient reports the morning stiffness was worse this morning,and it took awhile to , "get moving." The rainy weather has kept the pain elevated for the past few days. Pain Assessment - Pain Description Pain Location: lumbar /L hip Pain Description: Radiating, Dull, Aching, Chronic Pain Description: radiates into the L posterior thigh,down to knee level Current Pain Intensity: 4/10 - Treatment Modality: Electrical Stim Unattended Parameters/Method Applied: 20 mins. high volt ,channel 1 and 2 # 75 pv to lumbar. Patient Position: Right Sidelying - Heat/Cryotherapy Treatment: Hot Pack (concurrent with e-stim) Interventions - Exercise/Activities/Manual Therapy Exercises/Activities: 25 mins. gentle stretches of 90/90 hamstring stretches , MODIFIED SKTC,DKTC;pelvic tilts, R side-lying piriformis stretches,LTR in hooklying.NO L HIP FLEXION PAST 90 DEGREES Total minutes of Exercise: 25 Manual Therapy: NA Total minutes of Manual Therapy: 0 HOME EXERCISE PROGRAM: Pelvic tilts,SKTC,DKTC,90/90 hamstring stretches,LTR, gravity assisted ( Right side-lying ) piriformis stretches.Recommend 2-3x/day as tolerated,in PAIN FREE ROM. - Charges Timed Code Treatment Minutes: 25 Total Treatment Time: 45 Procedures billed for this date of service:: hp,e-stim,ex 2 Assessment: Exercises are limited due to L hip sugeries.He is able to benefit from lumbar stretches ,with hip flexion limted ,but the piriformis stretch elicits pain in the L hip if he adducts the L LE toward midline ,and he understands his hip precautions. Patient Education: Education of diagnosis, Body/Joint mechanics, Home Exercise Program, Home Safety, Activity Modification, Education of Plan of Care Patient demonstrates compliance with HEP?: Yes Short Term Goals Goal #1: Pt independent and compliant with HEP. Goal to be met by: 10/05/18 Progress towards Goal:: Met Goal #2: SLR bilaterally to 45 degrees. Goal to be met by: 10/05/18 Goal #3: Left hip abduction and ER 4/5. Goal to be met by: 10/05/18 Progress towards Goal:: No Change Jail Goals Goal #1: Pt knows HEP and to continue ex's to maintain level of function at D/C. Goal to be met by: 11/05/18 Progress towards goal: Progressing Goal #2: Score on Oswestry improved to 40. Goal to be met by: 11/05/18 Goal #3: Pt to amb community distances with minimal low back pain. Goal to be met by: 11/05/18 Goal #4: Pt to amb. with minimal gait deviations and good safety. Goal to be met by: 11/05/18 Progress towards goal: No Change Plan Dates of Segment Assembler Goals: 11/05/18 Expiration date of current Insurance Approval:: pending PLAN: Cont skilled PT to reduce/eliminate sciatica /LBP.
--- NOTE | 2018-10-09 14:39 | RS.OPPTDN ---
Subjective Date of Note: 10/09/18 Visit #: 5 Number of visits approved by Insurance: pending Date of Evaluation: 09/21/18 Payer Source: Medicaid Treatment Diagnosis: Low back pain, trunk and hip weakness, gait abnormality. Current Subjective/complaints:: Patient reports slight decrease in pain today , but the rainy weather for several days has made daily activity more difficult than usual. Pain Assessment - Pain Description Pain Location: back /hips Pain Description: Dull, Aching, Chronic Current Pain Intensity: 2-3 at rest - Treatment Modality: Electrical Stim Unattended Parameters/Method Applied: 20 mins, high volt,channel 1 and 2 @ 75 pv to lumbar and L hip. Patient Position: Right Sidelying Interventions - Exercise/Activities/Manual Therapy Exercises/Activities: 20 mins. gentle stretches of 90/90 hamstring stretches , MODIFIED SKTC,DKTC. Standing lunges in short ROM attempted to stretch hip flexors ,but stopped due to pain. Total minutes of Exercise: 20 Manual Therapy: NA Total minutes of Manual Therapy: 0 HOME EXERCISE PROGRAM: Pelvic tilts,SKTC,DKTC,90/90 hamstring stretches,LTR, gravity assisted ( Right side-lying ) piriformis stretches.Recommend 2-3x/day as tolerated,in PAIN FREE ROM. - Charges Timed Code Treatment Minutes: 20 Total Treatment Time: 40 Procedures billed for this date of service:: e-stim,ex Assessment: Patient continues to have difficulty with all mobility due to multiple joint pain.The sciatica is present again today ,but he is unable to do an efficient piriformis stretch due to the L hip surgeries in the past.He is attending pain management ,and the muscle relaxers they prescribed are beginning to help him.We discussed the D/C plan for next session due to limitations that affect his ability to do more aggressive stretches. Patient Education: Education of diagnosis, Body/Joint mechanics, Home Exercise Program, Home Safety, Activity Modification, Education of Plan of Care Patient demonstrates compliance with HEP?: Yes Short Term Goals Goal #1: Pt independent and compliant with HEP. Goal to be met by: 10/05/18 Progress towards Goal:: Met Goal #2: SLR bilaterally to 45 degrees. Goal to be met by: 10/05/18 (has hip flexor cramps present with SLR ) Progress towards Goal:: Progressing Goal #3: Left hip abduction and ER 4/5. Goal to be met by: 10/05/18 Progress towards Goal:: No Change Transition Of Care Specialist Goals Goal #1: Pt knows HEP and to continue ex's to maintain level of function at D/C. Goal to be met by: 11/05/18 Progress towards goal: Met Goal #2: Score on Oswestry improved to 40. Goal to be met by: 11/05/18 Goal #3: Pt to amb community distances with minimal low back pain. Goal to be met by: 11/05/18 (2-3 today ,varies with how long he is on his feet) Progress towards goal: Progressing Goal #4: Pt to amb. with minimal gait deviations and good safety. Goal to be met by: 11/05/18 Progress towards goal: No Change Plan Dates of Usp Goals: 11/05/18 Expiration date of current Insurance Approval:: pending PLAN: Initiate D/C plan after next session,do Oswestry LBP Test.
--- NOTE | 2018-10-11 14:23 | RS.OPPTDC ---
Date of Discharge: 10/11/18 Date of Evaluation: 09/21/18 Number of Visits: 6 Treatment Diagnosis: Low back pain, trunk and hip weakness, gait abnormality. Current Level of Function: He is limited community ambulator due to multiple joint arthritis. Current Complaints/Gains: Patient reports temporary relief only after the PT sessions,is aware of D/C plan today due to this matter.The HEP has to be modified due to multiple L hip surgeries in the past. Pain Assessment - Pain Description Pain Location: lumbar/L hip Pain Description: Radiating, Dull, Aching, Chronic Current Pain Intensity: 3/10 Worst Pain Intensity: 9-10/10 Functional Outcome Measure - G Codes & Severity Modifier G Codes & Modifier: NA Source of G Code score: NA Observation - Observation Posture: Forward Head, Rounded Shoulders, Decreased Lumbar Lordosis, Posterior Pelvic Tilt Gait - Gait Pattern General Gait Pattern Observation: Antalgic Gait, Wide Based Gait, Trunk Anterior to Pelvis, Short Stance Time (R), Short Stance Time (L), Decrease Stride Lngth (R), Decrease Stride Lngth (L) - Treatment Modality: Electrical Stim Unattended Parameters/Method Applied: 20 mins. high volt,channel 1 and 2 @ 85pv. Patient Position: Right Sidelying Interventions - Exercise/Activities/Manual Therapy Exercises/Activities: 10 mins. gentle stretches of 90/90 hamstring stretches , MODIFIED SKTC,DKTC. Total minutes of Exercise: 10 Manual Therapy: NA Total minutes of Manual Therapy: 0 HOME EXERCISE PROGRAM: Pelvic tilts,SKTC,DKTC,90/90 hamstring stretches,LTR, gravity assisted ( Right side-lying ) piriformis stretches.Recommend 2-3x/day as tolerated,in PAIN FREE ROM. - Charges Timed Code Treatment Minutes: 10 Total Treatment Time: 30 Procedures billed for this date of service:: e-stim,ex Short Term Goals Goal #1: Pt independent and compliant with HEP. Goal to be met by: 10/05/18 Progress towards Goal:: Met Goal #2: SLR bilaterally to 45 degrees. Goal to be met by: 10/05/18 Progress towards Goal:: Partially Met Comments:: able to do SLR to 45 ,but c/o muscle cramps in quads Goal #3: Left hip abduction and ER 4/5. Goal to be met by: 10/05/18 Progress towards Goal:: No Change Database Consultant Goals Goal #1: Pt knows HEP and to continue ex's to maintain level of function at D/C. Goal to be met by: 11/05/18 Progress towards goal: Met Goal #2: Score on Oswestry improved to 40. Goal to be met by: 11/05/18 Progress towards goal: No Change Goal #3: Pt to amb community distances with minimal low back pain. Goal to be met by: 11/05/18 (2-3 today ,varies with how long he is on his feet) Progress towards goal: No Change Goal #4: Pt to amb. with minimal gait deviations and good safety. Goal to be met by: 11/05/18 Progress towards goal: No Change Plan Reason for Discharge:: Lack of Progress
== END 2018-10-25 23:59 ==
PROVIDERS: ATTEND Pain Medicine Interventional Pain Medicine
DX: M19.012 Primary osteoarthritis, left shoulder (principal)

== ENCOUNTER 2018-10-20 20:17 | Outpatient (CLI) ==
[2018-08-10 00:02] VITALS: BMI 27.3
== END 2018-10-20 20:41 | disposition short-term general hospital (02) ==
LOC: AMBL 20:17
PROVIDERS: ATTEND Family Medicine
DX: S49.92XA Unspecified injury of left shoulder and upper arm, initial encounter (principal); W06.XXXA Fall from bed, initial encounter; Z96.612 Presence of left artificial shoulder joint

== ENCOUNTER 2018-10-23 09:38 | Outpatient (CLI) ==
[2018-08-10 00:02] VITALS: BMI 27.3
== END 2018-10-23 09:39 | disposition home or self-care (01) ==
LOC: AMBL 09:38
PROVIDERS: ATTEND Emergency Medicine
DX: R55 Syncope and collapse (principal); W19.XXXA Unspecified fall, initial encounter; R42 Dizziness and giddiness; R03.1 Nonspecific low blood-pressure reading

== ENCOUNTER 2018-11-07 10:47 | Outpatient (CLI) ==
[2018-08-10 00:02] VITALS: BMI 27.3
--- NOTE | 2018-11-07 11:53 | US ---
EXAM: ULTRASOUND CAROTID DUPLEX, BILATERAL HISTORY: Syncope FINDINGS: Doyle-scale ultrasound, color Doppler and spectral analysis was performed. Velocities are in meters per second. By doyle scale and color Doppler imaging, there were regions of heterogeneous plaque formation identi fied within the carotid bulbs and internal carotid arteries. These regions of plaque appeared to rem ain less than 50% vessel diameter. RIGHT: External carotid artery peak systolic velocity: 0.87 Common carotid artery peak systolic velocity/end diastolic velocity: 0.87/0.22 Internal carotid artery peak systolic velocity: 0.86 ICA/CCA peak systolic velocity ratio: 1.0 ICA end diastolic velocity: 0.33 LEFT: External carotid artery peak systolic velocity: 0.71 Common carotid artery peak systolic velocity/end diastolic velocity: 0.89/0.21 Internal carotid artery peak systolic velocity: 0.79 ICA/CCA peak systolic velocity ratio: 0.9 ICA end diastolic velocity: 0.38 The right and left vertebral arteries were antegrade. IMPRESSION: 1. By doyle scale and color Doppler imaging, there were regions of heterogeneous plaque formation maureen ntified within the carotid bulbs and internal carotid arteries. These regions of plaque appeared to remain less than 50% vessel diameter. 2. Internal carotid artery peak systolic velocities and ICA/CCA peak systolic velocity ratios indica te no hemodynamically significant stenosis bilaterally. 3. Both vertebral arteries were antegrade. 4. Consider correlation with CTA if indicated clinically.
== END 2018-11-07 10:48 | disposition home or self-care (01) ==
LOC: RAD 10:47
PROVIDERS: ATTEND Internal Medicine
DX: R55 Syncope and collapse (principal)

== ENCOUNTER 2018-11-09 12:38 | Outpatient (CLI) ==
[2018-08-10 00:02] VITALS: BMI 27.3
--- NOTE | 2018-11-12 09:38 | HOLTER ---
PATIENT INFORMATION AND COMMENTS Attending Physician: DR. KARTHIK VILLARREAL Indications: SYNCOPE __ Patient Medications: LEXAPRO, PRAVASTATIN, TRAMADOL, HYDROCODONE, COREG, NORVASC, PROTONIX __ Pre-procedure Summary: Protocol: Standard Heart Rate Started: 11/09/18 1259 Minimum: 69 BPM Weight: 215 LBS Ended: 11/10/18 1230 Maximum: 148 BPM Height: 73" Duration: 23 HRS 30 MIN Average: 104 BPM _ INTERPRETATIONS/OBSERVATIONS: 1. BASIC RHYTHM: SINUS, RATE 70 BPM TO 120 BPM, AVERAGE 104 BPM 2. PVC'S --1% TO 2% OF BEATS SCANNED/ FEW COUPLETS/UNIFOCAL 3. RARE PAC'S 4. NO ST-W WAVE CHANGES FROM BASELINE 5. ACTIVITY LOG NOT AVAILABLE MTDD
== END 2018-11-09 12:39 | disposition home or self-care (01) ==
LOC: CAR 12:38
PROVIDERS: ATTEND Internal Medicine
DX: R55 Syncope and collapse (principal)
CPT/HCPCS: 93005; 93010; 93227

== ENCOUNTER 2018-11-20 08:02 | Outpatient (CLI) ==
[2018-08-10 00:02] VITALS: BMI 27.3
--- NOTE | 2018-11-20 13:33 | CT ---
EXAM: CTA of the neck was performed with and without contrast TECHNIQUE: Helical axial CTA of the neck was performed with and without contrast with multiplanar re constructions and separate work station 3-D renderings. COMPARISON: Carotid duplex from 11/07/2018 HISTORY: Syncope FINDINGS: There is no acute soft tissue abnormality. There are no neck masses or pathologic lymph nod es. The thyroid gland is unremarkable. No acute abnormality in the upper chest. There are no acute os seous abnormalities. There is some degenerative change in the cervical spine.There is noted to be a large cavity in the second molar in the maxilla on the left, tooth #15. Also noted is a cyst associa denice with the first molar in the mandible on the left, tooth #19. This measures 1.3 cm in diameter. There is inclusion in the portion of the intracranial circulation which demonstrates extremely advanc ed calcific atherosclerosis of the bilateral carotid siphons. There is also calcific atherosclerosis of the V4 segments of the bilateral vertebral arteries. There are origins of the bilateral po sterior cerebral arteries resulting in a very diminutive vertebral basilar system. Aorta: There is moderate calcific atherosclerosis of the aorta with no evidence for dissection or an eurysm. The bilateral subclavian and brachio-cephalic arteries are widely patent. There is normal b ranching anatomy of the great vessels. Right carotid artery: The origin of the right common carotid artery off the brachiocephalic and the common carotid artery in the neck are widely patent. The right carotid bifurcation, external carotid artery and the cervical right internal carotid artery are all widely patent. There is no evidence f or aneurysm or focal stenosis or dissection. There is moderate calcific atherosclerosis of the right carotid bifurcation which is not hemodynamically significant. Right vertebral artery: There is a focal calcification at the origin of the right vertebral artery w hich is very diminutive. The course of the right vertebral artery in the neck is normal with no foca l stenosis or dissection or aneurysm. Left carotid artery: The origin of the left common carotid artery off the aortic arch and the common carotid artery in the neck are widely patent. The left carotid bifurcation, external carotid artery and the cervical left internal carotid artery are all widely patent. There is no evidence for aneur ysm or focal stenosis or dissection. There is moderate calcific atherosclerosis at the bifurcation wh ich is not hemodynamically significant. Left vertebral artery: There is a focal calcification at the origin of the left vertebral artery. T he course of the left vertebral artery in the neck is unremarkable with no focal stenosis or aneurysm or dissection. The left vertebral artery is dominant. IMPRESSION: 1. Focal calcifications at the origins of the bilateral vertebral arteries probably resulting in a m oderate degree of stenosis bilaterally. The vertebral arteries are somewhat diminutive secondary to origins of the bilateral posterior cerebral arteries. 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 2. Widely patent bilateral carotid arteries with a moderate degree of non stenotic atherosclerosis o f both bifurcations. 3. Moderate atherosclerosis of the aorta. 4. Advanced atherosclerosis of the bilateral carotid siphons and to a lesser degree the bilateral V4 segments of the vertebral arteries. If clinically indicated CTA of the head may be helpful. 5. Large cavity involving tooth #15 as above. 6. Cystic lesion associated with the tooth #19 probably a periapical cyst.
== END 2018-11-20 08:03 | disposition home or self-care (01) ==
LOC: RAD 08:02
PROVIDERS: ATTEND Internal Medicine
DX: R55 Syncope and collapse (principal); R93.1 Abnormal findings on diagnostic imaging of heart and coronary circulation
CPT/HCPCS: 36415; 82565

== ENCOUNTER 2018-12-24 13:00 | Outpatient (CLI) ==
[2018-08-10 00:02] VITALS: BMI 27.3
== END 2018-12-24 13:01 | disposition home or self-care (01) ==
LOC: LAB 13:00
PROVIDERS: ATTEND Internal Medicine
DX: I25.10 Atherosclerotic heart disease of native coronary artery without angina pectoris (principal); Z95.5 Presence of coronary angioplasty implant and graft; Z86.2 Personal history of diseases of the blood and blood-forming organs and certain disorders involving the immune mechanism
CPT/HCPCS: 36415; 80053; 85025

== ENCOUNTER 2019-01-10 10:52 | Emergency (ER) ==
[2019-01-10 11:08] VITALS: BP 91/61; TEMP 96.9; BMI 27.2
--- NOTE | 2019-01-10 11:51 | ED.PDOC ---
General ED Provider: Dr. KEENA MURILLO Chief Complaint: Shortness of Air Stated Complaint: Shortness of Breath. Onset since OH that occurred 2 weeks ago. SOA since end of November. Fell et fx left humerus just distal to shoulder prosthesis. States became anemic with a HGB 8.5 when he was discharged from [place] for repair. Had OH 3 days after discharge. Had 2 stents placed at [facility] in [place]. Was going to see Dr Villarreal for F/U et became more SOA et was unable to walk up slight ramp to the office. Instructed to come to ER. States he is still anemic. "Slight" chest pain. [ End ] Time Seen by Physician: 10:25 Mode of Arrival: Wheelchair Information Source: Patient Exam Limitations: No limitations Primary Care Provider: KARTHIK VILLARREAL Seen Within Last 72 Hours for Same Complaint By: Clinic Nursing and Triage Documentation Reviewed and Agree: Yes Does patient meet sepsis criteria?: No System Inflammatory Response Syndrome: Not Applicable Sepsis Protocol: For patient's 13 years and over: Temp is 96.8 and below OR 101 and greater Pulse >90 BPM Resp >20/minute Acutely Altered Mental Status Are patient's symptoms suggestive of a new infection, such as: -Pneumonia -Skin, Soft Tissue -Endocarditis -UTI -Bone, Joint Infection -Implantable Device -Acute Abdominal Infection -Wound Infection -Meningitis -Blood Stream Catheter Infection -Unknown Review of Systems - Review Of Systems Constitutional: Reports: No symptoms Eyes: Reports: No symptoms Ears, Nose, Mouth, Throat: Reports: No symptoms Respiratory: Reports: Short of air Cardiac: Reports: No symptoms GI: Reports: No symptoms : Reports: No symptoms Musculoskeletal: Reports: No symptoms Skin: Reports: No symptoms Neurological: Reports: No symptoms Endocrine: Reports: No symptoms Hematologic/Lymphatic: Reports: No symptoms All Other Systems: Reviewed and Negative Past Medical History - Past Medical History Endocrine: Reports: Dyslipidemia Cardiovascular: Reports: Hypertension Respiratory: Reports: None Hematological: Reports: None Gastrointestinal: Reports: None Genitourinary: Reports: None Neuro/Psych: Reports: None Musculoskeletal: Reports: Arthritis Cancer: Reports: None Other Pertinent Past Medical History: Left Ulnar damage for fracture 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 - Surgical History General Surgical History: Reports: Other - Family History Family History: Reports: None - Social History Smoking Status: Former smoker Hx Substance Use: No Alcohol Screening: Occasionally Physical Exam - Physical Exam Appearance: Well-appearing, No pain distress, Well-nourished Ill-appearing: Mild Pain Distress: None Eyes: ANNIE, EOMI, Conjunctiva clear ENT: Ears normal, Nose normal, Oropharynx normal Respiratory: Airway patent, Breath sounds clear, Breath sounds equal, Respirations nonlabored Cardiovascular: RRR, Pulses normal, No rub, No murmur GI/: Soft, Nontender, No masses, Bowel sounds normal, No Organomegaly Musculoskeletal: Normal strength, ROM intact, No edema, No calf tenderness Skin: Warm, Dry, Normal color Neurological: Sensation intact, Motor intact, Reflexes intact, Cranial nerves intact, Alert, Oriented Psychiatric: Affect appropriate, Mood appropriate Critical Care Note - Critical Care Note Total Time (mins): 60 Course - Course Hematology/Chemistry: 01/10/19 11:10 01/10/19 11:10 Orders, Labs, Meds: Lab Review 01/10/19 01/10/19 01/10/19 11:10 11:10 11:10 WBC 10.40 H RBC 3.93 L Hgb 10.4 L Hct 33.4 L MCV 85.0 MCH 26.5 L MCHC 31.1 L RDW Coeff of Hai 15.8 H Plt Count 418 Immature Gran % (Auto) 1.1 Neut % (Auto) 58.1 Lymph % (Auto) 25.4 Sierra % (Auto) 13.0 H Eos % (Auto) 1.6 Baso % (Auto) 0.8 Immature Gran # (Auto) 0.1 Neut # (Auto) 6.1 Lymph # (Auto) 2.6 Sierra # (Auto) 1.4 Eos # (Auto) 0.2 Baso # (Auto) 0.1 PT INR APTT D-Dimer (Manual) 2567.99 Puncture Site O2 Saturation ABG pH ABG pCO2 ABG pO2 ABG HCO3 ABG Total CO2 ABG Base Excess Usman Test FiO2 % Sodium 135.9 Potassium 2.65 L* Chloride 99.1 Carbon Dioxide 21.7 L Anion Gap 17.75 BUN 9.6 Creatinine 0.84 Estimated GFR (MDRD) 95.00 BUN/Creatinine Ratio 11.42 Glucose 104.5 Calcium 8.69 Magnesium 1.21 L Total Bilirubin 0.69 AST 32.2 ALT 18.2 Alkaline Phosphatase 192.2 H Total Creatine Kinase 29.9 L Troponin I Total Protein 7.21 Albumin 4.48 Globulin 2.73 Albumin/Globulin Ratio 1.64 01/10/19 01/10/19 01/10/19 11:10 11:10 11:41 WBC RBC Hgb Hct MCV MCH MCHC RDW Coeff of Hai Plt Count Immature Gran % (Auto) Neut % (Auto) Lymph % (Auto) Sierra % (Auto) Eos % (Auto) Baso % (Auto) Immature Gran # (Auto) Neut # (Auto) Lymph # (Auto) Sierra # (Auto) Eos # (Auto) Baso # (Auto) PT 12.2 H INR 1.23 APTT 24.5 D-Dimer (Manual) Puncture Site Rrad O2 Saturation 97.0 ABG pH 7.415 ABG pCO2 31.0 L ABG pO2 89.0 ABG HCO3 19.9 L ABG Total CO2 21 L ABG Base Excess -5 L Usman Test + FiO2 % 1.0 Sodium Potassium Chloride Carbon Dioxide Anion Gap BUN Creatinine Estimated GFR (MDRD) BUN/Creatinine Ratio Glucose Calcium Magnesium Total Bilirubin AST ALT Alkaline Phosphatase Total Creatine Kinase Troponin I < 0.012 Total Protein Albumin Globulin Albumin/Globulin Ratio Orders Category Date Time Status ABG DRAW REQUEST Stat CARDIO 01/10/19 11:42 Completed EKG-(ED ONLY) Stat CARDIO 01/10/19 11:41 Completed NPO REMINDER: IMAGING ONCE CARE 01/10/19 13:06 Completed ABG Stat LAB 01/10/19 11:41 Completed CBC W/ AUTO DIFF Stat LAB 01/10/19 11:10 Completed CMP [COMPREHENSIVE METABOLIC PANEL] Stat LAB 01/10/19 11:10 Completed CPK [CREATINE KINASE] Stat LAB 01/10/19 11:10 Completed D-DIMER Stat LAB 01/10/19 11:10 Completed MAGNESIUM Stat LAB 01/10/19 11:10 Completed PARTIAL THROMBOPLASTIN TIME Stat LAB 01/10/19 11:10 Completed PT WITH INR Stat LAB 01/10/19 11:10 Completed TROPONIN I Stat LAB 01/10/19 11:10 Completed URINE DRUG SCREEN (RAPID FOR ED) [DRUG SCREEN, URINE, LAB 01/10/19 11:41 Uncollected RAPID] Stat Magnesium Sulfate Bag [Magnesium Sulfate] 100 ml MEDS 01/10/19 13:46 Discontinued IV .STK-MED Magnesium Sulfate Bag [Magnesium Sulfate] 2 gm MEDS 01/10/19 13:03 Discontinued Premix 100 ml D5w 2 bag IV ONCE Magnesium Sulfate Bag [Magnesium Sulfate] 200 ml MEDS 01/10/19 13:12 Discontinued IV .STK-MED Potassium Chloride [K-Dur] MEDS 01/10/19 12:45 Discontinued 20 meq PO ONCE STA Potassium Chloride [K-Dur] MEDS 01/10/19 14:22 Discontinued 20 meq PO ONCE STA CHEST, 2 VIEWS PA & LAT Stat RADS 01/10/19 11:[address] CHEST PE PROTOCOL Stat RADS 01/10/19 13:05 Completed Medications Discontinued Medications Generic Name Dose Route Start Last Admin Trade Name Daveq PRN Reason Stop Dose Admin Magnesium Sulfate/Dextrose 2 200 mls @ 100 mls/hr 01/10/19 13:03 01/10/19 13: 40 gm/ Dextrose IV 01/10/19 15:02 100 mls/hr ONCE STA Administration Potassium Chloride 20 meq 01/10/19 12:45 01/10/19 12:54 K-Dur PO 01/10/19 12:46 20 meq ONCE STA Administration Potassium Chloride 20 meq 01/10/19 14:22 01/10/19 14:39 K-Dur PO 01/10/19 14:23 20 meq ONCE STA Administration Vital Signs: Temp Pulse Resp BP Pulse Ox 01/10/19 10:53 96.9 F L 92 H 20 91/61 100 Departure - Departure Time of Disposition: 15:30 Disposition: HOME SELF-CARE Discharge Problem: Dyspnea, Hypokalemia, Hypomagnesemia Instructions: Dyspnea (ED), Potassium Supplement (By mouth), Choline Magnesium Trisalicylate (By mouth), Mineral Supplement Combination (By mouth) Condition: Good Pt referred to PMD for follow-up: Yes (Dr Villarreal) IPMP verified?: No Additional Instructions: Increased activity as directed Take supplements as directed See Dr Villarreal in 3-5 days Have Electrolytes and Magnesium levels rechecked Enroll in Cardiac rehab Prescriptions: Magnesium Chloride [Slow-Mag] 71.5 mg PO BID #60 tablet. Potassium Chloride [K-Dur] 20 meq PO DAILY #15 tab Allergies/Adverse Reactions: Allergies Sulfa (Sulfonamide Antibiotics) Adverse Reaction (Verified 01/10/19 11:07) Home Medications: Ambulatory Orders Pravastatin Sodium [Pravachol] 80 mg PO DAILY 02/05/18 Amlodipine Besylate 1 tab PO DAILY 03/05/18 Escitalopram Oxalate [Lexapro] 10 mg PO DAILY 08/10/18 Carvedilol [Coreg] 6.25 mg PO BIDWM 01/10/19 Clopidogrel Bisulfate [Plavix] 75 mg PO DAILY 01/10/19 Lisinopril 2.5 mg PO DAILY 01/10/19 Magnesium Chloride [Slow-Mag] 71.5 mg PO BID #60 tablet. 01/10/19 Pantoprazole Sodium [Protonix] 40 mg PO DAILY 01/10/19 Potassium Chloride [K-Dur] 20 meq PO DAILY #15 tab 01/10/19 Disposition Discussed With: Patient, Family
--- NOTE | 2019-01-10 12:03 | DI ---
EXAM: CHEST FRONTAL AND LATERAL VIEWS HISTORY: Dyspnea. COMPARISON: 07/05/2018 FINDINGS: Heart size is upper limit normal, stable. There is at least mild atherosclerotic disease. No acute infiltrates are seen. No vascular congestion. There is no consolidation, visible pleural fluid or pneumothorax. Postop changes of the left shoulder. Bones reveal no acute fracture. IMPRESSION: No acute cardiopulmonary process.
[2019-01-10] MEDS: K-DUR PO STA ×2 (12:54→14:39)
[2019-01-10] MEDS: MAGNESIUM SULFATE 2 GM in PREMIX 100 ML D5W 2 BAG IV STA (13:40)
[2019-01-10] MEDS: MAGNESIUM SULFATE 200 ML IV ONE (13:40)
--- NOTE | 2019-01-10 14:07 | CT ---
EXAM: CT angiography chest HISTORY: Recent myocardial infarction, stents, progressive edema COMPARISON: CT chest 08/10/2018 TECHNIQUE: The angiography chest performed with intravenous contrast. Coronal and sagittal reformat denice images obtained. 3-D reformatted images created. FINDINGS: The thoracic inlet unremarkable. Heart mildly enlarged. Coronary calcifications and/or s tent. No pericardial effusion. Aorta normal in caliber. Moderate atherosclerosis. Small hiatal he rnia. No lymphadenopathy identified in the chest. Visualized portion upper abdomen demonstrates no acute abnormality. No acute abnormalities of the bones. Degenerative change in the spine. Central airway patent. Mild bibasilar subsegmental atelectasis. No airspace consolidation. No pleural effu kaylynn. No pneumothorax. Bilateral gynecomastia. No filling defects identified in the pulmonary geo suellen to suggest a pulmonary embolism. IMPRESSION: 1. No evidence for pulmonary embolism. 2. No acute cardiopulmonary process. 3. Cardiomegaly. Coronary calcifications and/or stent. Atherosclerosis 4. Small hiatal hernia.
[2019-01-10] MEDS: MAGNESIUM SULFATE 100 ML IV ONE (14:40)
== END 2019-01-10 15:44 | disposition home or self-care (01) ==
LOC: ED 10:52
DX: R06.02 Shortness of breath (principal); R06.00 Dyspnea, unspecified; E87.6 Hypokalemia; E83.42 Hypomagnesemia
CPT/HCPCS: 36415; 80053; 82550; 82803; 83735; 84484; 85025; 85379; 85610; 85730; 93005; 93010; 96365; 96366; 99285

== ENCOUNTER 2019-01-16 10:13 | Outpatient (CLI) | END 2019-01-16 10:14 | disposition home or self-care (01) | LOC: LAB 10:13 | PROVIDERS: ATTEND Internal Medicine | DX: E87.6 Hypokalemia (principal) | CPT/HCPCS: 36415; 80053 ==

== ENCOUNTER 2019-02-06 15:46 | Outpatient (CLI) | END 2019-02-06 15:54 | disposition critical access hospital (66) | LOC: AMBL 15:46 | PROVIDERS: ATTEND Internal Medicine | DX: R47.81 Slurred speech (principal) ==

== ENCOUNTER 2019-02-06 16:03 | Emergency (ER) ==
[2019-02-06 16:11] VITALS: BP 111/68; TEMP 97.5; BMI 28.3
--- NOTE | 2019-02-06 17:11 | ED.PDOC ---
General ED Provider: Dr. LILLI BRUNSON Chief Complaint: Alcohol Intoxication Stated Complaint: A 911 CALL WAS MADE FOR SOMEONE WHO WAS IN HIS CAR THEY THOUGH HE WAS AN OVERDOSE BUT THE PT ARRIVED FULLY ALERT SAID HE HAD SOME ALCOHOL AT HOME WENT TO THE CEMETRY TO VISIT HIS FATHER'S GRAVE . HE DENIED BEING SUICIDAL Time Seen by Physician: 16:10 (SEEN WITH AIME) Mode of Arrival: Stretcher Information Source: Patient Exam Limitations: No limitations Primary Care Provider: KARTHIK VILLARREAL Nursing and Triage Documentation Reviewed and Agree: Yes Does patient meet sepsis criteria?: Yes If yes, has appropriate treatment been initiated?: No System Inflammatory Response Syndrome: Not Applicable Sepsis Protocol: For patient's 13 years and over: Temp is 96.8 and below OR 101 and greater Pulse >90 BPM Resp >20/minute Acutely Altered Mental Status Are patient's symptoms suggestive of a new infection, such as: -Pneumonia -Skin, Soft Tissue -Endocarditis -UTI -Bone, Joint Infection -Implantable Device -Acute Abdominal Infection -Wound Infection -Meningitis -Blood Stream Catheter Infection -Unknown Miscellaneous Complaint Exam - Complex/Multi-System Complaint/Exam Symptoms Are: Resolved Initial Severity: Mild Current Severity: None Location of Pain: NO PAIN Associated Signs and Symptoms: Denies: Decreased responsiveness, Confusion, Agitation, Dizziness, Weakness, Syncope, Headache, Short of air, Cough, Wheezing , Hemoptysis, Chest pain, Palpitations, Edema, Nausea, Vomiting, Diarrhea, Abdominal pain, Back pain, Dysuria, Hematemesis, Melena, Decreased oral intake, Fever, Diaphoresis, Immunocompromised, Anticoagulation Therapy, Recent medication changes, Indwelling program medical director, Prior MRSA, Prior VRE, Recent trauma, Remote trauma Recent Echo/LV Function: No Respiratory Distress: None JVD Present: No Tachypnea Present: No Stridor Present: No Glascow Coma Scale (see protocol): 15 Meningeal Signs Positive: No Focal Weakness: Present: None Focal Sensory Loss: Present: None Gait: Normal Gag Reflex Present: Yes Babinski Sign: Negative Right, Negative Left Skin Findings: Present: Normal findings Joint Swelling Present: No In-Dwelling Device Present: No Differential Diagnosis: Metabolic Abnormality Quality Indicator For Non-Traumatic Chest Pain/Syncope: EKG Performed Review of Systems - Review Of Systems Constitutional: Reports: No symptoms Eyes: Reports: No symptoms Ears, Nose, Mouth, Throat: Reports: No symptoms Respiratory: Reports: No symptoms Cardiac: Reports: No symptoms GI: Reports: No symptoms : Reports: No symptoms Musculoskeletal: Reports: No symptoms Skin: Reports: No symptoms Neurological: Reports: No symptoms Endocrine: Reports: No symptoms Hematologic/Lymphatic: Reports: No symptoms All Other Systems: Reviewed and Negative Past Medical History - Past Medical History Previously Healthy: Yes Endocrine: Reports: Dyslipidemia Cardiovascular: Reports: Hypertension Respiratory: Reports: None Hematological: Reports: None Gastrointestinal: Reports: None Genitourinary: Reports: None Neuro/Psych: Reports: None Musculoskeletal: Reports: Arthritis Cancer: Reports: None Other Pertinent Past Medical History: Left Ulnar damage for fracture 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 - Surgical History General Surgical History: Reports: Other - Family History Family History: Reports: None - Social History Smoking Status: Former smoker Hx Substance Use: No Alcohol Screening: Heavy Physical Exam - Physical Exam Appearance: Well-appearing, No pain distress, Well-nourished Eyes: ANNIE, EOMI, Conjunctiva clear ENT: Ears normal, Nose normal, Oropharynx normal Respiratory: Airway patent, Breath sounds clear, Breath sounds equal, Respirations nonlabored Cardiovascular: RRR, Pulses normal, No rub, No murmur GI/: Soft, Nontender, No masses, Bowel sounds normal, No Organomegaly Musculoskeletal: Normal strength, ROM intact, No edema, No calf tenderness Skin: Warm, Dry, Normal color Neurological: Sensation intact, Motor intact, Reflexes intact, Cranial nerves intact, Alert, Oriented Psychiatric: Affect appropriate, Mood appropriate Critical Care Note - Critical Care Note Total Time (mins): 0 Course - Course Hematology/Chemistry: 02/06/19 17:17 02/06/19 17:17 Orders, Labs, Meds: Lab Review 02/06/19 02/06/19 17:17 17:17 WBC 9.24 RBC 3.84 L Hgb 9.8 L Hct 31.3 L MCV 81.5 MCH 25.5 L MCHC 31.3 L RDW Coeff of Hai 16.4 H Plt Count 341 Immature Gran % (Auto) 0.3 Neut % (Auto) 64.7 Lymph % (Auto) 25.8 [place] % (Auto) 6.4 Eos % (Auto) 1.9 Baso % (Auto) 0.9 Immature Gran # (Auto) 0.0 Neut # (Auto) 6.0 Lymph # (Auto) 2.4 [place] # (Auto) 0.6 Eos # (Auto) 0.2 Baso # (Auto) 0.1 Sodium 140.7 Potassium 3.57 Chloride 101.2 Carbon Dioxide 26.6 Anion Gap 16.47 BUN 11.1 Creatinine 0.59 L Estimated GFR (MDRD) 142.00 BUN/Creatinine Ratio 18.81 Glucose 123.5 H Calcium 8.18 L Total Bilirubin 0.30 AST 50.0 ALT 15.0 Alkaline Phosphatase 142.7 H Total Protein 7.11 Albumin 4.19 Globulin 2.92 Albumin/Globulin Ratio 1.43 Salicylate Level mg/dL < 1.00 Acetaminophen < 10.0 L Plasma/Serum Alcohol 369.6 H Orders Category Date Time Status EKG-(ED ONLY) Stat CARDIO 02/06/19 17:09 Completed ED TRAVELING ENGINEER APPLIED ONCE EMERGENCY 02/06/19 17:09 Active ACETAMINOPHEN Stat LAB 02/06/19 17:17 Completed BLOOD ALCOHOL Stat LAB 02/06/19 17:17 Completed CBC W/ AUTO DIFF Stat LAB 02/06/19 17:17 Completed COMPREHENSIVE METABOLIC PANEL Stat LAB 02/06/19 17:17 Completed SALICYLATE Stat LAB 02/06/19 17:17 Completed Vital Signs: Temp Pulse Resp BP Pulse Ox 02/06/19 16:03 97.5 F L 90 20 111/68 95 Departure - Departure Time of Disposition: 19:00 Disposition: HOME SELF-CARE Discharge Problem: Alcohol intoxication Anemia Qualifiers: Anemia type: unspecified type Qualified Code(s): D64.9 - Anemia, unspecified Instructions: Alcohol Intoxication (ED), Anemia (ED) Condition: Good Pt referred to PMD for follow-up: Yes IPMP verified?: No Additional Instructions: Please call your Family Physician as soon as possible to schedule a follow-up appointment.YOUR VERY ANEMIC AT YOUR AGE THIS CAN MEAN SEVERAL ISSUES , STOMACH ULCER OR COLON POLYPS SOMETIME COLON CANCER. YOU MUST SEE YOUR DOCTOR TO SEE WHY YOU ARE ANEMIC, AND HAVE A COLONSCOPY. Allergies/Adverse Reactions: Allergies Sulfa (Sulfonamide Antibiotics) Adverse Reaction (Verified 02/06/19 16:11) Home Medications: Ambulatory Orders Pravastatin Sodium [Pravachol] 80 mg PO DAILY 02/05/18 Amlodipine Besylate 1 tab PO DAILY 03/05/18 Escitalopram Oxalate [Lexapro] 10 mg PO DAILY 08/10/18 Carvedilol [Coreg] 6.25 mg PO BIDWM 01/10/19 Clopidogrel Bisulfate [Plavix] 75 mg PO DAILY 01/10/19 Lisinopril 2.5 mg PO DAILY 01/10/19 Magnesium Chloride [Slow-Mag] 71.5 mg PO BID #60 tablet. 01/10/19 Pantoprazole Sodium [Protonix] 40 mg PO DAILY 01/10/19 Potassium Chloride [K-Dur] 20 meq PO DAILY #15 tab 01/10/19
== END 2019-02-06 19:25 | disposition home or self-care (01) ==
LOC: ED 16:03
DX: F10.129 Alcohol abuse with intoxication, unspecified (principal); D64.9 Anemia, unspecified; E78.5 Hyperlipidemia, unspecified; I10 Essential (primary) hypertension; Z79.899 Other long term (current) drug therapy
CPT/HCPCS: 36415; 80053; 80307; 85025; 93005; 93010; 99283

== ENCOUNTER 2019-04-02 10:15 | Inpatient (IN) ==
--- NOTE | 2019-04-02 11:20 | DI ---
EXAM: Frontal chest HISTORY: Cough. FINDINGS: Compared to 03/06/2019. Stable cardiomegaly. There is at least mild atherosclerotic dise ase. No acute infiltrates are seen. No vascular congestion. There is no consolidation, visible ple ural fluid or pneumothorax. Bones reveal no acute fracture. IMPRESSION: No acute cardiopulmonary process. If symptoms persist, consider follow up with full i nspiration, standing two-view chest radiography using PA and lateral technique.
--- NOTE | 2019-04-02 12:45 | CT ---
EXAM: CT abdomen and pelvis without contrast Date: 04/02/2019 COMPARISON: CT abdomen and pelvis 08/10/2018 History: Abdominal pain and low hemoglobin and hematocrit levels. Previous left testicular resectio n. TECHNIQUE: Axial CT images through the abdomen and pelvis were obtained without IV contrast. FINDINGS: Abdomen: Gallbladder is normal in caliber. No pericholecystic fluid or fat stranding. L iver is normal in size and contour. Spleen is mildly enlarged measuring 13.5 cm. No urolithiasis, h ydronephrosis, or hydroureter. No peripancreatic fluid collection or inflammatory changes are seen. No adrenal mass. Negative appendix on axial image 91. No bowel obstruction. There is colonic dive rticulosis without evidence of acute diverticulitis. 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 There are atheromatous changes of the abdomin al aorta without aneurysm. No mesenteric or retroperitoneal lymphadenopathy. No ascites. No pneumo peritoneum. No pneumoperitoneum. No retroperitoneal hemorrhage. No pelvic or inguinal lymphadenopa thy. No bladder calculi are bladder wall thickening. There is a left hip prosthesis causing beam-camara rdening and star artifact in the pelvis. There are pelvic phleboliths. No worrisome blastic or lyti c osseous lesions in the abdomen or pelvis. No acute fracture. No evidence of osteomyelitis-diskiti s of the included spine. Impression: 1. No acute intra-abdominal hemorrhage or other acute finding. 2. 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 3. Mild splenomegaly. 4. No bowel obstruction.
--- NOTE | 2019-04-02 13:38 | ED.PDOC ---
General ED Provider: Dr. LILLI BRUNSON Chief Complaint: Weakness Stated Complaint: GENERALIZED WEAKNESS Time Seen by Physician: 10:20 (SEEN WITH NURSE AT ALL MIGHT) Mode of Arrival: Ambulance Information Source: Patient, EMT Exam Limitations: No limitations Primary Care Provider: KARTHIK VILLARREAL Nursing and Triage Documentation Reviewed and Agree: Yes Does patient meet sepsis criteria?: No System Inflammatory Response Syndrome: Not Applicable Sepsis Protocol: For patient's 13 years and over: Temp is 96.8 and below OR 101 and greater Pulse >90 BPM Resp >20/minute Acutely Altered Mental Status Are patient's symptoms suggestive of a new infection, such as: -Pneumonia -Skin, Soft Tissue -Endocarditis -UTI -Bone, Joint Infection -Implantable Device -Acute Abdominal Infection -Wound Infection -Meningitis -Blood Stream Catheter Infection -Unknown Neurological Complaint Exam - Weakness Complaint/Exam Last Known Well: WEEKS AGO Onset: Gradual Duration: 1 DAY INCREASED GENERALIZED Symptoms Are: Still present Timing: Constant Episodes Lasting: Hours Initial Severity: Mild Current Severity: Mild Character: Reports: Lightheaded Aggravating: Reports: None Alleviating: Reports: None Associated Signs and Symptoms: Denies: Nausea, Vomiting, Diaphoresis, Tinnitus, Chest pain, Short of air, Palpitations, Unsteady gait, GI blood loss, Visual changes, Decreased oral intake, Change in medication, Change in diet, OTC meds, Loss of balance Related History: Similar episode Cardiac Risk Factors: Reports: None, CAD (STENT X 3 ) CVA Risk Factors: Reports: None Related Surgical History: Reports: None JVD Present: No Carotid Bruit Present: No Glascow Coma Scale (see protocol): 15 Nystagmus Present: No Gag Reflex Present: Yes Meningeal Signs Positive: No Focal Weakness: Present: None Focal Sensory Loss: Present: None Gait: Normal Babinski Sign: Negative Right, Negative Left Milton-Hallpike Test Positive: No Differential Diagnoses: Hypovolemia, Metabolic abnormalities, Other (ANEMIA) Quality Indicators for Cardiac Chest Pain: EKG in 10min. Quality Indicators for AMI: EKG in 10min. Quality Indicator For Non-Traumatic Chest Pain/Syncope: EKG Performed Review of Systems - Review Of Systems Constitutional: Reports: Malaise, Weakness Eyes: Reports: No symptoms Ears, Nose, Mouth, Throat: Reports: No symptoms Respiratory: Reports: No symptoms Cardiac: Reports: No symptoms GI: Reports: No symptoms : Reports: No symptoms Musculoskeletal: Reports: No symptoms Skin: Reports: No symptoms Neurological: Reports: No symptoms Endocrine: Reports: No symptoms Hematologic/Lymphatic: Reports: No symptoms All Other Systems: Reviewed and Negative Past Medical History - Past Medical History Previously Healthy: Yes Endocrine: Reports: Dyslipidemia Cardiovascular: Reports: Hypertension Respiratory: Reports: None Hematological: Reports: None Gastrointestinal: Reports: None Genitourinary: Reports: None Neuro/Psych: Reports: None Musculoskeletal: Reports: Arthritis Cancer: Reports: None Other Pertinent Past Medical History: Left Ulnar damage for fracture 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 - Surgical History General Surgical History: Reports: Other - Family History Family History: Reports: None - Social History Smoking Status: Never smoker Hx Substance Use: No (no alcohol for 10 days) Alcohol Screening: Heavy Physical Exam - Physical Exam Appearance: Well-appearing, No pain distress, Well-nourished Eyes: ANNIE, EOMI, Conjunctiva clear ENT: Ears normal, Nose normal, Oropharynx normal Respiratory: Airway patent, Breath sounds clear, Breath sounds equal, Respirations nonlabored Cardiovascular: RRR, Pulses normal, No rub, No murmur GI/: Soft, Nontender, No masses, Bowel sounds normal, No Organomegaly Musculoskeletal: Normal strength, ROM intact, No edema, No calf tenderness Skin: Warm, Dry, Normal color Neurological: Sensation intact, Motor intact, Reflexes intact, Cranial nerves intact, Alert, Oriented Psychiatric: Affect appropriate, Mood appropriate - NIH Stroke Scale 1a. Level of Consciousness: 0=Alert and keenly responsive 1b. Level of Consciousness Questions: 0=Answers correctly to two questions 1c. Level of Consciousness Commands: 0=Performs two tasks correctly 2. Best Gaze: 0=Normal 3. Visual: 0=No visual loss 4. Facial Palsy: 0=Normal 5a. Motor Left Arm: 0=No drift,arm holds 90 degrees for 10 sec., leg 30 degrees for 5 sec. 5b. Motor Right Arm: 0=No drift,arm holds 90 degrees for 10 sec., leg 30 degrees for 5 sec. 6a. Motor Left Le=No drift,arm holds 90 degrees for 10 sec., leg 30 degrees for 5 sec. 6b. Motor Right Le=No drift,arm holds 90 degrees for 10 sec., leg 30 degrees for 5 sec. 7. Limb Ataxia: 0=Absent 8. Sensory: 0=Normal 11. Extincion and Inattention: 0=Normal Stroke Scale Total: 0 Interpretation - Radiology Interpretation Radiology Interpretation By: Radiologist Radiology Results: Positive (ILIAC ANEURYSM) - Manufacturing Executive Rate: Normal Rhythm: Sinus Ectopy: None Physician Notification - Case Discussed Physician Notified: VILLARREAL Time of Notification: 13:41 ( STATED TO ADMITT AND TRANSFUSE 1 UNIT ) Critical Care Note - Critical Care Note Total Time (mins): 0 Course - Course Hematology/Chemistry: 04/02/19 10:56 04/02/19 10:56 Orders, Labs, Meds: Lab Review 04/02/19 04/02/19 04/02/19 10:56 10:56 10:56 WBC 7.98 RBC 3.50 L Hgb 8.2 L Hct 27.2 L MCV 77.7 L MCH 23.4 L MCHC 30.1 L RDW Coeff of Hai 18.6 H Plt Count 385 Immature Gran % (Auto) 0.6 Neut % (Auto) 61.9 Lymph % (Auto) 21.7 [place] % (Auto) 10.4 H Eos % (Auto) 4.9 Baso % (Auto) 0.5 Immature Gran # (Auto) 0.1 Neut # (Auto) 4.9 Lymph # (Auto) 1.7 [place] # (Auto) 0.8 Eos # (Auto) 0.4 Baso # (Auto) 0.0 Puncture Site O2 Saturation ABG pH ABG pCO2 ABG pO2 ABG HCO3 ABG Total CO2 ABG Base Excess Usman Test FiO2 % Sodium 139.5 Potassium 4.15 Chloride 102.8 Carbon Dioxide 29.9 Anion Gap 10.95 BUN 8.4 L Creatinine 0.64 Estimated GFR (MDRD) 129.00 BUN/Creatinine Ratio 13.12 Glucose 88.3 Calcium 8.37 L Total Bilirubin 0.22 AST 36.5 ALT 11.9 Alkaline Phosphatase 113.6 Total Creatine Kinase 36.6 L Troponin I < 0.012 Total Protein 6.39 Albumin 3.36 L Globulin 3.03 Albumin/Globulin Ratio 1.10 TSH 1.180 Free T4 0.85 Urine Color Urine Clarity Urine pH Ur Specific [place] Urine Protein Urine Glucose (UA) Urine Ketones Urine Blood Urine Nitrite Urine Bilirubin Urine Urobilinogen Ur Leukocyte Esterase Plasma/Serum Alcohol 04/02/19 04/02/19 04/02/19 11:32 11:38 11:38 WBC RBC Hgb Hct MCV MCH MCHC RDW Coeff of Hai Plt Count Immature Gran % (Auto) Neut % (Auto) Lymph % (Auto) [place] % (Auto) Eos % (Auto) Baso % (Auto) Immature Gran # (Auto) Neut # (Auto) Lymph # (Auto) [place] # (Auto) Eos # (Auto) Baso # (Auto) Puncture Site Rr O2 Saturation 96.0 ABG pH 7.389 ABG pCO2 41.6 ABG pO2 82.0 L ABG HCO3 25.1 ABG Total CO2 26 ABG Base Excess 0 Usman Test + FiO2 % 21.0 Sodium Potassium Chloride Carbon Dioxide Anion Gap BUN Creatinine Estimated GFR (MDRD) BUN/Creatinine Ratio Glucose Calcium Total Bilirubin AST ALT Alkaline Phosphatase Total Creatine Kinase Troponin I Total Protein Albumin Globulin Albumin/Globulin Ratio TSH Free T4 Urine Color Yellow Urine Clarity Clear Urine pH 7.5 Ur Specific [place] 1.015 Urine Protein Negative Urine Glucose (UA) Negative Urine Ketones Negative Urine Blood Negative Urine Nitrite Negative Urine Bilirubin Negative Urine Urobilinogen 0.2 Ur Leukocyte Esterase Negative Plasma/Serum Alcohol < 10.0 Orders Category Date Time Status ADMIT PATIENT INPATIENT .TO [facility] (MONITORED BED) ADMISSION 04/02/19 13: 32 Active ABG DRAW REQUEST Stat CARDIO 04/02/19 11:38 Completed EKG-(ED ONLY) Stat CARDIO 04/02/19 10:50 Completed EKG-(IP & OP ONLY) DAILY CARDIO 04/03/19 06:00 Ordered EKG-(IP & OP ONLY) DAILY CARDIO 04/04/19 06:00 Ordered EKG-(IP & OP ONLY) DAILY CARDIO 04/05/19 06:00 Ordered ACTIVITY .Complete BR CARE 04/02/19 13:31 Ordered BLOOD GLUCOSE MONITORING ACCUCHECK Q6H CARE 04/02/19 13:31 Ordered INTAKE & OUTPUT Q8HR CARE 04/02/19 13:31 Ordered Neuro Check [NEUROLOGICAL CHECKS] Q4HR CARE 04/02/19 13:35 Ordered ORDER H&H 1HR POST TRANSFUSION ONCE CARE 04/02/19 13:32 Ordered PRBC LEUKOREDUCED ONCE CARE 04/02/19 13:32 Ordered TELEMETRY MONITORING TELE CARE 04/02/19 13:33 Active VITAL SIGNS Q4HR CARE 04/02/19 13:31 Ordered REGULAR DIET DIETARY 04/02/19 Dinner Ordered ABG Stat LAB 04/02/19 11:38 Completed BLOOD CULTURE Stat LAB 04/02/19 11:50 Received CBC W/ AUTO DIFF DAILY@0600 LAB 04/03/19 06:00 Ordered CBC W/ AUTO DIFF DAILY@0600 LAB 04/04/19 06:00 Ordered CBC W/ AUTO DIFF Stat LAB 04/02/19 10:56 Completed COMPREHENSIVE METABOLIC PANEL DAILY@0600 LAB 04/03/19 06:00 Ordered COMPREHENSIVE METABOLIC PANEL DAILY@0600 LAB 04/04/19 06:00 Ordered COMPREHENSIVE METABOLIC PANEL Stat LAB 04/02/19 10:56 Completed CREATINE KINASE Q8H LAB 04/02/19 19:45 Ordered CREATINE KINASE Q8H LAB 04/03/19 03:45 Ordered CREATINE KINASE Stat LAB 04/02/19 10:56 Completed ETOH LEVEL [BLOOD ALCOHOL] Stat LAB 04/02/19 11:32 Completed FREE T4 (FREE THYROXINE) Stat LAB 04/02/19 10:56 Completed OCCULT BLOOD, STOOL DAILY LAB 04/03/19 06:00 Uncollected OCCULT BLOOD, STOOL DAILY LAB 04/04/19 06:00 Uncollected PACKED CELLS Routine LAB 04/02/19 13:32 Ordered THYROID STIMULATING HORMONE Stat LAB 04/02/19 10:56 Completed TROPONIN I Q8H LAB 04/02/19 19:45 Ordered TROPONIN I Q8H LAB 04/03/19 03:45 Ordered TROPONIN I Stat LAB 04/02/19 10:56 Completed TYPE AND SCREEN Routine LAB 04/02/19 13:32 Ordered UA [URINALYSIS C & S IF INDICATED] Stat LAB 04/02/19 11:38 Completed Amlodipine Besylate [Amlodipine Besylate] MEDS 04/03/19 09:00 Ordered 1 tab PO DAILY Aspirin [Aspirin Chewable] MEDS 04/03/19 09:00 Ordered 81 mg PO DAILY Atorvastatin Calcium [Atorvastatin Calcium] MEDS 04/02/19 21:00 Ordered 80 mg PO BEDTIME Carvedilol [Coreg] MEDS 04/03/19 09:00 Ordered 3.125 mg PO DAILY Clopidogrel Bisulfate [Plavix] MEDS 04/03/19 09:00 Ordered 75 mg PO DAILY Duloxetine HCl MEDS 04/03/19 09:00 Ordered 20 mg PO DAILY Escitalopram Oxalate [Lexapro] MEDS 04/03/19 09:00 Ordered 20 mg PO DAILY Lisinopril [Lisinopril] MEDS 04/02/19 21:00 Ordered 0.5 tab PO BEDTIME Magnesium Chloride [Slow-Mag] MEDS 04/02/19 21:00 Ordered 71.5 mg PO BID Naltrexone HCl [Naltrexone HCl] MEDS 04/03/19 09:00 Ordered 50 mg PO DAILY Pantoprazole Sodium [Protonix] MEDS 04/03/19 09:00 Ordered 40 mg PO DAILY Sodium Chloride 0.9% [Sodium Chloride] 1,000 ml MEDS 04/02/19 14:00 Ordered IV 75 mls/hr Trazodone HCl [Desyrel] MEDS 04/02/19 21:00 Ordered 25 mg PO BEDTIME CHEST, 1V AP ONLY Stat RADS 04/02/19 10:[address] ABDOMEN/PELVIS WO CONTRAST Stat RADS 04/02/19 11:14 Completed Medications Generic Name Dose Route Start Last Admin Trade Name Freq PRN Reason Stop Dose Admin Aspirin 81 mg 04/03/19 09:00 Aspirin Chewable PO DAILY COUNT INCLUDES THE [facility] Carvedilol 3.125 mg 04/03/19 09:00 Coreg PO DAILY COUNT INCLUDES THE [facility] Clopidogrel Bisulfate 75 mg 04/03/19 09:00 Plavix PO DAILY COUNT INCLUDES THE [facility] Escitalopram Oxalate 20 mg 04/03/19 09:00 Lexapro PO DAILY COUNT INCLUDES THE [facility] Sodium Chloride 1,000 mls @ 75 mls/hr 04/02/19 14:00 Sodium Chloride IV .[id number] [place] Non-Formulary Medication 1 tab 04/03/19 09:00 Amlodipine Besylate [Amlodipine Besylate] PO DAILY COUNT INCLUDES THE [facility] Non-Formulary Medication 80 mg 04/02/19 21:00 Atorvastatin Calcium [Atorvastatin Calcium] PO BEDTIME [place] Non-Formulary Medication 20 mg 04/03/19 09:00 Duloxetine Hcl PO DAILY [place] Non-Formulary Medication 71.5 mg 04/02/19 21:00 Magnesium Chloride [Slow-Mag] PO BID [place] Non-Formulary Medication 50 mg 04/03/19 09:00 Naltrexone Hcl [Naltrexone Hcl] PO DAILY COUNT INCLUDES THE [facility] Non-Formulary Medication 0.5 tab 04/02/19 21:00 Lisinopril [Lisinopril] PO BEDTIME [place] Pantoprazole Sodium 40 mg 04/03/19 09:00 Protonix PO DAILY COUNT INCLUDES THE [facility] Trazodone HCl 25 mg 04/02/19 21:00 Desyrel PO BEDTIME COUNT INCLUDES THE [facility] Vital Signs: Temp Pulse Resp BP Pulse Ox 04/02/19 10:16 98.7 F 85 20 118/76 97 Departure - Departure Time of Disposition: 13:40 Disposition: ADMITTED INPATIENT Discharge Problem: Weakness generalized Anemia Qualifiers: Anemia type: unspecified type Qualified Code(s): D64.9 - Anemia, unspecified Instructions: Weakness (ED) Condition: Good Pt referred to PMD for follow-up: Yes IPMP verified?: No Additional Instructions: Please call your Family Physician as soon as possible to schedule a follow-up appointment. Allergies/Adverse Reactions: Allergies Sulfa (Sulfonamide Antibiotics) Adverse Reaction (Verified 04/02/19 10:21) Home Medications: Ambulatory Orders Amlodipine Besylate 1 tab PO DAILY 03/05/18 Escitalopram Oxalate [Lexapro] 20 mg PO DAILY 08/10/18 Carvedilol [Coreg] 3.125 mg PO DAILY 01/10/19 Clopidogrel Bisulfate [Plavix] 75 mg PO DAILY 01/10/19 Lisinopril 0.5 tab PO BEDTIME 01/10/19 Magnesium Chloride [Slow-Mag] 71.5 mg PO BID #60 tablet. 01/10/19 Pantoprazole Sodium [Protonix] 40 mg PO DAILY 01/10/19 Aspirin 81 mg PO DAILY 04/02/19 Atorvastatin Calcium 80 mg PO BEDTIME 04/02/19 Duloxetine HCl [Cymbalta] 20 mg PO DAILY 04/02/19 Naltrexone HCl 50 mg PO DAILY 04/02/19 Trazodone HCl 25 mg PO BEDTIME 04/02/19 Disposition Discussed With: Patient
[2019-04-02 14:58] VITALS: BMI 28.8
[2019-04-02] MEDS: SODIUM CHLORIDE 1,000 ML IV SCH (15:01)
[2019-04-02] MEDS: CARAFATE PO SCH ×2 (17:28→20:58)
[2019-04-02] MEDS: TORADOL IVP PRN (17:29)
[2019-04-02] MEDS: LIPITOR PO SCH (20:58)
[2019-04-02] MEDS: LISINOPRIL PO SCH (20:58)
[2019-04-02] MEDS: DESYREL PO SCH (20:58)
[2019-04-02] MEDS ORDERED: LISINOPRIL PO SCH (21:00)
[2019-04-02] MEDS ORDERED: NON-FORMULARY MEDICATION (Atorvastatin Calcium [Atorvastatin Calcium] 80 MG) PO SCH (21:00)
[2019-04-02] MEDS ORDERED: ZESTRIL PO SCH (21:00)
[2019-04-02] MEDS ORDERED: NON-FORMULARY MEDICATION (Magnesium Chloride [Slow-Mag] 71.5 MG) PO SCH (21:00)
[2019-04-03] MEDS: CARAFATE PO SCH ×4 (05:47→21:01)
[2019-04-03] MEDS: PROTONIX PO SCH (05:47)
--- NOTE | 2019-04-03 07:43 | HP ---
DATE OF SERVICE: 04/02/19 REASON FOR HOSPITALIZATION: Generalized weakness to the point where the patient is not able to walk. HISTORY OF PRESENT ILLNESS: 58-year-old white male was doing fine until the past 24 hours he has been extremely weak and tired. The patient was seen and examined in the emergency room by ER attending. Most of the tests including arterial blood gases, CBC, CMP were normal except for hemoglobin, hematocrit were noted to be 8.2 with hematocrit of 27. The patient's hemoglobin and hematocrit one week ago was 8.6 with hematocrit of 30. The patient denies any black stools or abdominal pain. He has history of anemia that started after his left shoulder surgery. PAST MEDICAL/SURGICAL HISTORY: History of syncope and postural hypotension, January 2019 hospitalization CAD with stents by Dr. Cross in November 2018 Moderate ASHD with carotid vessel and aortic disease Blood loss 2 units with left humeral fracture and fall Left total hip replacement 2014 [facility] Left shoulder surgery, March 2018 Gastroesophageal reflux disease Mild depression Alcoholism History of anemia Dyslipidemia REVIEW OF SYSTEMS: CONSTITUTIONAL: Generalized weakness. No night sweats. No fatigue, malaise, lethargy. No fever or chills. HEENT: Eyes: No visual changes. No eye pain. No eye discharge. ENT: No runny nose. No epistaxis. No sinus pain. No sore throat. No odynophagia. No ear pain. No congestion. RESPIRATORY: No cough, no congestion. No hemoptysis. Shortness of breath on minimal exertion. CARDIOVASCULAR: No angina symptoms. No CHF symptoms. No atypical chest pain for CAD. No palpitations. No PND. No orthopnea. GASTROINTESTINAL: No abdominal pain. No nausea or vomiting. No diarrhea or constipation. No hematemesis. No hematochezia. GENITOURINARY: No urgency. No frequency. No dysuria. No hematuria. No obstructive symptoms. No discharge. No pain. No significant abnormal bleeding. MUSCULOSKELETAL: No musculoskeletal pain. No joint swelling. No arthritis. NEUROLOGICAL: No headache. No neck pain. No syncope. No seizures. No dizziness. PSYCHIATRIC: Not anxious. No depression. No suicidal thoughts. No homicidal thoughts. SKIN: No rash. No lesions. No wounds. ENDOCRINE: No unexplained weight loss. No weight gain. HEMATOLOGIC/LYMPHATIC: No anemia. No purpura. No petechiae. No prolonged or excessive bleeding. No palpable lymph nodes. PERSONAL/FAMILY/SOCIAL HISTORY: The patient lives by himself with help of mother. He quit smoking nearly one year ago. The patient has quit drinking of two weeks. No present drug abuse. MEDICATIONS: Amlodipine 5 mg p.o. daily Lexapro 20 mg p.o. daily Coreg 3.125 mg daily Clopidogrel 75 mg daily Lisinopril 0.5 mg tab p.o. bedtime Pantoprazole 40 mg p.o. daily Aspirin 81 mg p.o. daily Atorvastatin 80 mg p.o. bedtime Duloxetine 20 mg p.o. daily Naltrexone 50 mg p.o. daily (given by [facility] from [facility]) Trazodone 25 mg at bedtime ALLERGIES: SULFA PHYSICAL EXAMINATION: GENERAL: The patient is oriented to time, place and person. VITAL SIGNS: Temperature 98.7, pulse 85, respiratory rate 20, BP 118/76, pulse ox 97%. Looks pale. HEENT: Mucous membranes dry. Head normocephalic, atraumatic. Eyes: Extraocular muscles are intact. Pupils are equal, round and reactive to light and accommodation. Ears: No lesions. Nose appeared normal. Throat: No exudate or erythema. NECK: Supple. No JVD, no carotid bruit. No lymphadenopathy or thyromegaly. LUNGS: Decreased breath sounds bilaterally. Clear to auscultation. Percussion note normal. Chest symmetrical. HEART: S1, S2, no S3. Grade I/ systolic murmur. No cyanosis or clubbing. No ascites. Pulses: Dorsalis pedis and posterior tibial pulses +1 bilaterally. ABDOMEN: Soft. Nontender. Bowel sounds active. No CVA tenderness. No mass felt. EXTREMITIES: No pedal edema. Full range of motion of all extremities, equal. VISCOSE CELLAR CHARGE HAND: Mental status normal. Deep tendon reflexes, motor and sensory normal. SKIN: Dry. Turgor - normal. LYMPHATIC: No palpable lymph nodes/no lymphedema. MUSCULOSKELETAL: Normal joints with no swelling. Muscle tone is normal. LABS: ABG p02 82, pc02 41, pH 7.38 with 96% saturation on room air. UA negative. AST, ALT, total troponin, CK-MB all negative. Creatinine 0.6, BUN 8.4. Hemoglobin 8.2 , hematocrit 27, WBC 7,900, normal differential. Increased monocytes noted. Chest x-ray negative. ASSESSMENT: 1. Generalized weakness. 2. Severe anemia, the main contributing factor. 3. Alcohol abuse. The patient is under treatment by [facility], alcohol rehab center at [place]. 4. Mild dehydration. 5. Coronary artery disease with history of stent times two by Dr. Cross, November 2018. 6. Moderate ASHD with carotid vessel and aortic vessel disease. 7. Blood loss with left humeral fracture status post fall. 8. Shoulder surgery, March 2018. 9. History of LVH. 10. Left total hip replacement 2014. 11. Mild depression on Lexapro, helping. 12. History of syncope one and one-half months ago. 13. Generalized osteoarthritis. 14. History of dyslipidemia. PLAN: 1. Type and crossmatch one unit and transfuse. 2. Watch CBC, CMP. 3. Telemetry. 4. Cardiac markers and EKG. 5. The patient is advised to continue all the medications. 6. The patient has not had anything to drink for more than 10 days. He joined [facility] in [place] and was discharged. The patient was called by them over the weekend. The patient is in touch with them. He is on Naltrexone. Advised to continue followup with alcohol detox center. TIME SPENT: More than 70 minutes. MELINDA
[2019-04-03] MEDS: COREG PO SCH (08:21)
[2019-04-03] MEDS: LEXAPRO PO SCH (08:21)
[2019-04-03] MEDS: NORVASC PO SCH (08:21)
[2019-04-03] MEDS: ASPIRIN CHEWABLE PO SCH (08:21)
[2019-04-03] MEDS: DULOXETINE HCL 20 MG PO SCH (08:22)
[2019-04-03] MEDS: MAGNESIUM CHLORIDE 143 MG PO SCH (08:22)
[2019-04-03] MEDS: PLAVIX PO SCH (08:22)
[2019-04-03] MEDS: NALTREXONE HCL 50 MG PO SCH (08:22)
[2019-04-03] MEDS: TORADOL IVP PRN (08:29)
[2019-04-03] MEDS ORDERED: AMLODIPINE BESYLATE PO SCH (09:00)
[2019-04-03] MEDS ORDERED: COREG PO SCH (09:00)
[2019-04-03] MEDS: SODIUM CHLORIDE 1,000 ML IV SCH ×3 (09:28→23:35)
--- NOTE | 2019-04-03 10:50 | PCM.PROG ---
Attending Provider: ATTENDING PROVIDER: Dr. KARTHIK VILLARREAL DATE OF SERVICE: 04/03/19 SUBJECTIVE: This 58 year old WHITE/ M was hospitalized 04/02/19 with anemia and weakness. The patient has history of coronary artery disease with stent. REVIEW OF SYSTEMS: CONSTITUTIONAL: No night sweats. No fatigue, malaise, lethargy. No fever or chills. HEENT: Eyes: No visual changes. No eye pain. No eye discharge. ENT: No runny nose. No epistaxis. No sinus pain. No odynophagia. No congestion. RESPIRATORY: No cough, no congestion. No hemoptysis. No shortness of breath. CARDIOVASCULAR: No angina symptoms. No CHF symptoms. No atypical chest pain for CAD. No palpitations. No orthopnea.. GASTROINTESTINAL: No abdominal pain. No nausea or vomiting. No diarrhea or constipation. No hematemesis. No hematochezia. GENITOURINARY: No urgency. No frequency. No dysuria. No hematuria. No obstructive symptoms. No discharge. No pain. No significant abnormal bleeding. MUSCULOSKELETAL: No musculoskeletal pain; no joint swelling. NEUROLOGICAL: Awake, alert, oriented to time, place and person. No headache. No neck pain. No syncope. No seizures. No dizziness. PSYCHIATRIC: Not anxious. No depression. No suicidal thoughts. No homicidal thoughts. SKIN: No rash. No lesions. No wounds. ENDOCRINE: No unexplained weight loss. No weight gain. HEMATOLOGIC/LYMPHATIC: No anemia. No purpura. No petechiae. No prolonged or excessive bleeding. No palpable lymph nodes. PHYSICAL EXAMINATION: GENERAL: The patient is awake, alert and oriented, lying in bed in no distress. VITAL SIGNS: Temperature 98.2 F, Pulse 86, Respiratory Rate 18, BP 136/86, Pulse Ox 98% HEENT: Head normocephalic, atraumatic. Eyes: Extraocular muscles are intact. Pupils are equal, round and reactive to light and accommodation. Ears: No lesions. Nose appeared normal. Throat: No exudate or erythema. NECK: Supple. No JVD, no carotid bruit. No lymphadenopathy or thyromegaly. LUNGS: Clear to auscultation. Percussion note normal. Chest symmetrical. HEART: S1, S2, no S3. No murmurs. No cyanosis or clubbing. No ascites. Pulses: Dorsalis pedis and posterior tibial pulses +1 to +2 both sides. ABDOMEN: Soft. Non-tender. Bowel sounds active. No CVA tenderness. No mass felt. EXTREMITIES: No edema. Full range of motion of all extremities, equal. NEUROLOGIC: No focal deficit. Cranial nerves II through XII are grossly intact. No headache, no double vision or headache. SKIN: Warm and dry. Intact. Turgor-normal. LYMPHATIC: No palpable lymph nodes/no lymphedema. MUSCULOSKELETAL: Normal joints with no swelling. Muscle tone is normal. LAB REVIEW: 04/03/19 03:50 04/03/19 03:50 04/03/19 03:50: WBC 7.22, RBC 3.96 L, Hgb 9.6 L, Hct 31.0 L, MCV 78.3 L, MCH 24.2 L, MCHC 31.0 L, RDW Coeff of Hai 18.3 H, Plt Count 380, Immature Gran % ( Auto) 0.4, Neut % (Auto) 52.6, Lymph % (Auto) 29.4, [place] % (Auto) 10.8 H, Eos % (Auto) 6.1, Baso % (Auto) 0.7, Immature Gran # (Auto) 0.0, Neut # (Auto) 3.8, Lymph # (Auto) 2.1, [place] # (Auto) 0.8, Eos # (Auto) 0.4, Baso # (Auto) 0.1 04/03/19 03:50: Sodium 137.8, Potassium 3.97, Chloride 104.3, Carbon Dioxide 26.7, Anion Gap 10.77, BUN 9.1, Creatinine 0.62, Estimated GFR (MDRD) 134.00, BUN/Creatinine Ratio 14.67, Glucose 95.6, Calcium 8.46, Total Bilirubin 0.37, AST 19.7, ALT 11.1, Alkaline Phosphatase 105.8, Total Creatine Kinase 29.3 L, Troponin I < 0.012, Total Protein 6.22 L, Albumin 3.24 L, Globulin 2.98, Albumin /Globulin Ratio 1.08 04/02/19 23:18: Hgb 9.6 L, Hct 31.7 L 04/02/19 23:18: Total Creatine Kinase 31.5 L, Troponin I < 0.012 04/02/19 13:52: Blood Type O POSITIVE, Antibody Screen Negative, Crossmatch (AHG ) See Detail 04/02/19 11:50: Blood Type O POSITIVE 04/02/19 11:38: Urine Color Yellow, Urine Clarity Clear, Urine pH 7.5, Ur Specific [place] 1.015, Urine Protein Negative, Urine Glucose (UA) Negative, Urine Ketones Negative, Urine Blood Negative, Urine Nitrite Negative, Urine Bilirubin Negative, Urine Urobilinogen 0.2, Ur Leukocyte Esterase Negative 04/02/19 11:38: Puncture Site Rr, O2 Saturation 96.0, ABG pH 7.389, ABG pCO2 41.6, ABG pO2 82.0 L, ABG HCO3 25.1, ABG Total CO2 26, ABG Base Excess 0, Usman Test +, FiO2 % 21.0 04/02/19 11:32: Plasma/Serum Alcohol < 10.0 04/02/19 10:56: Free T4 0.85 04/02/19 10:56: Sodium 139.5, Potassium 4.15, Chloride 102.8, Carbon Dioxide 29.9, Anion Gap 10.95, BUN 8.4 L, Creatinine 0.64, Estimated GFR (MDRD) 129.00, BUN/Creatinine Ratio 13.12, Glucose 88.3, Calcium 8.37 L, Total Bilirubin 0.22, AST 36.5, ALT 11.9, Alkaline Phosphatase 113.6, Total Creatine Kinase 36.6 L, Troponin I < 0.012, Total Protein 6.39, Albumin 3.36 L, Globulin 3.03, Albumin/ Globulin Ratio 1.10, TSH 1.180 04/02/19 10:56: WBC 7.98, RBC 3.50 L, Hgb 8.2 L, Hct 27.2 L, MCV 77.7 L, MCH 23.4 L, MCHC 30.1 L, RDW Coeff of Hai 18.6 H, Plt Count 385, Immature Gran % ( Auto) 0.6, Neut % (Auto) 61.9, Lymph % (Auto) 21.7, [place] % (Auto) 10.4 H, Eos % (Auto) 4.9, Baso % (Auto) 0.5, Immature Gran # (Auto) 0.1, Neut # (Auto) 4.9, Lymph # (Auto) 1.7, [place] # (Auto) 0.8, Eos # (Auto) 0.4, Baso # (Auto) 0.0 ASSESSMENT: Please see below. 1. Anemia, stable no evidence of GI bleed 2. Cardiovascular status is stable, Telemetry showed no arrhythmias PLAN: 1. The patient is to have an appointment with Dr. Villar which he missed while at a rehab center for alcoholism in [place]. There are no DT's as the patient has been off alcohol for more than 10 days. Plan and coordination of the patient's care discussed in the presence of Electron Beam Photo Mask Technician and nurse. SCRIBED BY: ROMÁN JUSTICE Dry Room Operator scribed while in presence of service performed by Dr. KARTHIK VILLARREAL on 04/03/19 ([id number])
--- NOTE | 2019-04-03 15:58 | RS.OTINEVL ---
Subjective - Patient information Date of Evaluation: 04/03/19 Date of Arrival on Unit: 04/02/19 Admitted From:: Emergency Dept Diagnosis: Anemia, Weakness PRECAUTIONS: At risk for falls, difficulty with ambulation Usual Living Arrangement: With Parent Living Arrangement Comments: Pt lives with mother and she is 82 y/o and takes care of him. Pt uses a cane to ambulate. Pt has ulnar paralysis of the LUE and has impaired supination. Pt has limited AROM of the LUE and is not able to extend the ring digit or the small digit. Home Environment: House, Stairs (few), Rail Medical History: COPD Medical History Comments:: ND, CAD, Stents x 3, Peripheral neuropathy, seizures , MSD, Aneurysm, respiratory disorder, hearing loss, incontinence. Surgical History: Hip Replacement, Shoulder Replacement Surgical History Comments:: Hip surgery, Left shoulder surgery and UE, CAD, Subjective Information/ Patient Comments:: Pt reports he is incont. and wear depends and they kicked him out at the alcohol rehab place because of that. - Level of function Prior to this admission, the patient could do the following:: Independent Ambulation Abilities prior to this admission: Pt was able to walk and transfer. Pt requires assistance with all self cares. Pt uses a cane to walk. Pt reports he cannot get in his house with 3 steps. Current Level of Function: Independent Current Equipment Used at Home: Uses Straight Cane, Rollator, Pain Assessment - Pain Side: bilateral Pain Location Body Site: Back Pain Aggravating Factors: Changing Position, Sitting Pain Alleviating Factors: Medication Interventions - Objective Patient Orientation: Person, Place, Situation Current Interventions: IV's, Telemetry Observation: Pt is weak and has impaired gait with LBE. Pt requires 2-3 people to help him walk. Pt has a difficult time with functional mobility. Pt requires moderate assistance to sit up at EOB. Interventions - ROM Right Upper Extremity AROM: WFL's Left Upper Extremity AROM: WFL's - Strength Right Upper Extremity Strength: Mild Weakness Left Upper Extremity Strength: Severe Weakness - Sensation Right Upper Extremity Sensation: Intact/Normal Left Upper Extremity Sensation: Impaired Balance - Sitting Balance Static Sitting Balance: Poor Dynamic Sitting Balance: Poor - Standing Balance Static Standing Balance: Poor Dynamic Standing Balance: Poor - Comments Balance Assessment Comments: Poor ADL Skills - Self Feeding Self Feeding: Set Up Only - Grooming Grooming: Min Assist - Bathing Bathing UE: Mod Assist Bathing LE: Mod Assist - Dressing Dressing UE: Min Assist Dressing LE: Max Assist - Toilet Management Toileting Management: Min Assist Functional Mobility - Bed Mobility Rolling R/L: Mod Assist, 1 person assist Scooting: Mod Assist, 1 person assist Supine to Sit: Mod Assist, 1 person assist Sit to Supine: Mod Assist, 1 person assist - Transfers Sit to Stand: Mod Assist, 2 person assist Stand to Sit: Mod Assist, 2 person assist Stand Pivot Transfers: Mod Assist, 2 person assist - Ambulation Weight Bearing Status: FWB Assistive Device Used: Small Base Quad Cane Assistance needed with Ambulation: Mod Assist, 2 person assist - Safety Awareness Safety Awareness: Poor WOO INDEX SCORE: . Additional Treatment Performed - Time with patient Length of Evaluation: 25 Total treatment time: 25 Activities Do you enjoy playing games?: Yes Would you be interested in leaving your room for activities?: Yes Would you enjoy group activities?: Yes Do you have difficulty with your vision?: Yes What types of things do you enjoy doing? Any Hobbies?: TV, Socializing. Patient Interests:: Watching Television, Visiting/Socializing Patient Education Patient Education: Education of diagnosis, Body/Joint mechanics, Home Exercise Program, Home Safety, Education of Plan of Care Teaching Recipient: Patient Teaching Methods: Discussion Assessment Problem List:: Decreased level of function, Requires training/education, Decreased safety/Risk of falls, Weakness Rehab Potential: Fair Further Therapy Indicated?: Yes Evaluation Complexity: HISTORY: Medium, EXAM OF BODY SYSTEMS: Medium, CLINICAL DECISION MAKING: Medium Short Term Goals - Goals GOAL 1: Pt to complete toileting minimal assistance with using the toilet. Goal to be met by: 04/08/19 GOAL 2: Pt to improve dyn. std. balance to Fair- Goal to be met by: 04/08/19 GOAL 3: Pt to tolerate 15 minutes of activity for self care management. Goal to be met by: 04/08/19 [employer] [employer] Goals GOAL 1: Pt to complete toileting CGA assistance with using the toilet. Goal to be met by: 04/15/19 GOAL 2: Pt to improve dyn. std. balance to G/F+ Goal to be met by: 04/15/19 GOAL 3: Pt to increase Indep. of self care management to Supervision. Goal to be met by: 04/15/19 Plan Plan of Care: Therapeutic EX, Neuromuscular Re-Educ, Therapeutic Activity, Self- Care/Home Management Frequency of Treatment: 1-2 X day, as tolerated Duration of Treatment: 2 Weeks Anticipated Discharge Destination: [facility] Treatment Diagnosis (ICD 10 Codes): M62.81 generalized weakness, Z74.1 Need assistance with self care. Has the Physician been added for Co-signature?: Yes
[2019-04-03] MEDS: LISINOPRIL PO SCH (21:01)
[2019-04-03] MEDS: DESYREL PO SCH (21:02)
[2019-04-03] MEDS: LIPITOR PO SCH (21:02)
[2019-04-04] MEDS: PROTONIX PO SCH (05:32)
[2019-04-04] MEDS: CARAFATE PO SCH ×3 (05:33→16:03)
[2019-04-04] MEDS: MAGNESIUM CHLORIDE 143 MG PO SCH (08:29)
[2019-04-04] MEDS: DULOXETINE HCL 20 MG PO SCH (08:29)
[2019-04-04] MEDS: NALTREXONE HCL 50 MG PO SCH (08:29)
[2019-04-04] MEDS: ASPIRIN CHEWABLE PO SCH (08:30)
[2019-04-04] MEDS: COREG PO SCH (08:30)
[2019-04-04] MEDS: NORVASC PO SCH (08:30)
[2019-04-04] MEDS: PLAVIX PO SCH (08:31)
[2019-04-04] MEDS: LEXAPRO PO SCH (08:31)
--- NOTE | 2019-04-04 08:33 | RS.PTINEVL ---
Subjective - Patient information Date of Evaluation: 04/03/19 Date of Arrival on Unit: 04/02/19 Admitted From:: Emergency Dept Usual Living Arrangement: With Parent Living Arrangement Comments: Lives with elderly mother. pt amb with cane at home also has rollator that occasionally his mother uses to push him in when he is weak. Home Environment: House, Stairs (few) (3 steps), Rail Medical History: COPD, Arthritis, Cancer (testicular) Medical History Comments:: alcohol abuse, MD 11/2018 (? 2nd MD per patient), depression, LVH, CAD, syncope, ASHD with aortic disease, GERD, peripheral neuropathy, L humeral fx, L elbow fx, postural hypotension Surgical History: Hip Replacement (left), Shoulder Replacement (left) Surgical History Comments:: repair of L humerus fx, coronary stents Medications: see chart Subjective Information/ Patient Comments:: pt states he is concerned because the doctors state he is losing blood. pt also states he recently left alcohol rehab. pt also voices concerns regarding being able to go home due to weakness and only having elderly mother at home. - Level of function Prior to this admission, the patient could do the following:: Independent ADL's , Independent Ambulation (states he has been getting weaker. ), Drive Current Level of Function: Partially Dependent Current Equipment Used at Home: Uses Straight Cane, Rollator, Pain Assessement - Location LUE Description: Aching Pain Behavior: Rubbing Site, Facial Grimacing Pain Aggravating Factors: Exercise/Activity Pain Alleviating Factors: Medication Interventions - Objective Patient Orientation: Person, Place, Time Current Interventions: IV's, Telemetry Observation: pt with swelling noted to BLE as well as LUE. Range of Motion - ROM Right Upper Extremity AROM: WFL's Left Upper Extremity AROM: Moderate limitation (limited L shld ROM as well as elbow and hand due to previous injuries.) Right Lower Extremity AROM: WFL's Left Lower Extremity AROM: WFL's Muscle Strength - Muscle Strength Right Upper Extremity Strength: Mild Weakness (grossly 4/5) Left Upper Extremity Strength: Severe Weakness (shld flex 3-/5, elbow flex/ext 3 -/5, limited wrist ext, 0/5 finger ext, 2/5 finger flex) Right Lower Extremity Strength: Mild Weakness (hip flex 3+/5 ,knee flex/ext 4-/5 , ankle DF/PF 4-/5) Left Lower Extremity Strength: Mild Weakness (hip flex 3+/5 ,knee flex/ext 4-/5 , ankle DF/PF 4-/5) Sensation - Sensation Right Upper Extremity Sensation: Intact/Normal Left Upper Extremity Sensation: Impaired (numbness to L 4th/5th fingers) Right Lower Extremity Sensation: Impaired (n/t BLE) Left Lower Extremity Sensation: Impaired (n/t BLE) Palpation Palpation Findings: Tenderness Comments:: to palpation of L UE Balance - Sitting Balance and Reactions Static Sitting Balance: Poor Dynamic Sitting Balance: Poor Sitting Equilibrium Reactions: Delayed Left, Delayed Right Sitting Protective Reactions: Delayed Left, Delayed Right - Standing Balance and Reactions Static Standing Balance: Poor Dynamic Standing Balance: Poor Standing Equilibrium Reactions: Delayed Left, Delayed Right Standing Protective Reactions: Delayed Left, Delayed Right - Comments Balance Assessment Comments: pt unable to maintain static sitting balance without min assist. Functional Mobility - Bed Mobility Rolling R/L: Min Assist, Mod Assist, 2 person assist Supine to Sit: Min Assist, Mod Assist, 2 person assist - Transfers Sit to Stand: Min Assist, Mod Assist, 2 person assist Stand to Sit: Mod Assist, 2 person assist - Safety Awareness Safety Awareness: Poor WOO INDEX SCORE: n/a Ambulation - Ambulation Assistive Device Used: Small Base Quad Cane Orthotic/Prosthetic Device: No Distance: 5 ft Assistance needed with Ambulation: Min Assist, Mod Assist, 2 person assist Gait Deviations: Forward posture, Short stride Ambulation Comments: pt amb with decreased step length, flexed posture, leans backward during gait, narrow MICHAEL Factors Affecting Ambulation: Decreased Balance, Weakness, Decreased Safety, Limited Endurance Treatment time - Units charged Gait trainin - Time with patient Length of Evaluation: 19 Total treatment time: 26 Patient Education - Education Patient Education: Home Exercise Program, Education of Plan of Care Teaching Recipient: Patient Teaching Methods: Discussion Comments: discussion regarding POC and plans for DC. Assessment - Assessment Problem List:: Decreased level of function, Requires training/education, Decreased safety/Risk of falls, Weakness, Pain limits previous level of function Rehab Potential: Good Further Therapy Indicated?: Yes Candidate for Swing Bed for Therapy Services?: Would need to reassess at a later time for swing bed if indicated. Evaluation Complexity: HISTORY: Medium, EXAM OF BODY SYSTEMS: Medium, CLINICAL PRESENTATION: Medium, CLINICAL DECISION MAKING: Medium Short Term Goals GOAL #1: pt demonstrate rolling and bridging in bed with bedrails Goal to be met by: 04/06/19 GOAL #2: Transfer sup to/from sit min x 1 Goal to be met by: 04/06/19 GOAL #3: Transfer sit to/from stand min x 1 Goal to be met by: 04/06/19 GOAL #4: pt amb with AAD 50ft with min x 1 with improved posture. Goal to be met by: 04/06/19 GOAL #5: Improve dyn stand balance fair Goal to be met by: 04/06/19 Detention Goals GOAL #1: Transfer sup to/from sit to/from stand CGA Goal to be met by: 04/09/19 GOAL #2: pt amb with AAD 140ft with CGA x 1. Goal to be met by: 04/09/19 GOAL #3: Improve dyn stand balance fair+ Goal to be met by: 04/09/19 Plan Plan of Care: Therapeutic EX, Therapeutic Activity Other:: gait training Frequency of Treatment: 1-2 X day, as tolerated Duration of Treatment: 5 days Anticipated Discharge Destination: Home Treatment Diagnosis (ICD 10 Codes): difficulty walking R26.2. balance impaired R 26.81. general weakness M 62.81 Has the Physician been added for Co-signature?: Yes
--- NOTE | 2019-04-04 08:45 | DS ---
DATE OF SERVICE: 04/04/19 FINAL DIAGNOSIS: 1. Anemia, stable no evidence of GI bleed 2. Weakness 3. Alcohol abuse-treatment at [facility] 4. Dehydration 5. VA November 2018 6. CAD stents times two Dr. Cross November 2018 7. History of LVH 8. Depression 9. Syncope 10.Postural hypotension 11.Moderate ASHD with carotid vessel and Aortic DX. 12.GERD 13.Peripheral neuropathy 14.Osteoarthritis 15.Dyslipidemia 16.Testicular cancer 17.Smoker 18.Left Humeral fracture with repair, 2017 19.Left shoulder surgery 20.Left Total hip replacement, 2014 21.Tonsillectomy 22.Cataract excision 23.Ocular implants LAST VITALS Temperature 97.5, pulse 98, respiratory rate 18, blood pressure 133/83 and pulse ox 95%. DISCHARGE INSTRUCTIONS: Discharge to [facility]. Vital signs daily for one week , then weekly. Weight monthly. CBC and CMP twice a week on Mondays and . Please call results to Dr. Boyd's office. PT/OT evaluate and treat. May participate in group home activity program. An appointment with Dr. Anderson has been scheduled for MondayApril 09 at 140pm with ROBERT Chicas. Code status is full code. MEDICATIONS AT DISCHARGE: Norvasc 10mg PO daily Aspirin 81mg PO daily Lipitor 80mg PO bedtime Coreg 3.125mg PO daily Librium 10mg PO twice a day Plavix 75mg PO daily Lexapro 20mg PO daily Cymbalta 20mg Po daily Naltrexone 50mg PO daily Magnesium Chloride 143mg PO QAM Lisinopril 2.5mg PO bedtime Protonix 40mg PO QDAC Carafate 1gram PO ACHS Desyrel 25mg PO bedtime ALLERGIES: Sulfa NEW PRESCRIPTIONS: Librium 10mg PO twice a day take one capsule by mouth twice a day Trazodone HCL 25mg PO Take one tablet by mouth at bedtime DISCONTINUED MEDICATIONS: None DIET INSTRUCTIONS: Regular with regular consistency and thin liquids ACTIVITY: Up to dining room for meals SMOKING: Current smoking DISEASE SPECIFIC EDUCATION: Anemia Weakness Alcohol abuse GI appointment Diet Activity HOSPITAL COURSE: 58 year old white male hospitalized with weakness with difficulty ambulation and fatigue. The patient has anemia which was symptomatic. The patient was given unit of blood. At the time of discharge the patient's hgb is 9.9 and hct 32. His color is a lot better. No evidence of CHF or coronary insufficiency. Cardiovascular status is stable. His other problem is alcohol which has been address by [facility] in [place]. They have been calling him and keeping in touch. Which when his overall status has improved he may return. The patient has an appointment next week with gastrologist. He has no evidence of active GI bleed. Cardiovascular status is stable. ADDENDUM: The patient had problem with ambulation with weakness. The patient has neglected himself for past several months after his left shoulder surgery and had also started drinking heavy. He went to initial rehab at [facility] in [place] and was discharged from there because he needed some more physical therapy. The patient after long discussion with his mother who takes care him decided to go to the group home where he will undergo physical therapy. The patient's motivation at present time is high but in the past he has not followed through with his determinations that he has shown in the past. The patient did not have DT's and hasn't had any drink for last couple of weeks. He will put on Thiamine 100mg PO daily. CONDITION: Stable. TIME SPENT: More than 60 minutes. MTDD
--- NOTE | 2019-04-04 08:46 | PCM.PROG ---
Attending Provider: ATTENDING PROVIDER: Dr. KARTHIK VILLARREAL DATE OF SERVICE: 04/04/19 SUBJECTIVE: This 58 year old WHITE/ M was hospitalized 04/02/19 with anemia and coronary artery disease with history of alcoholism. The patient has been up and about to go to the bathroom by himself. He is able to daily activity of daily living. REVIEW OF SYSTEMS: CONSTITUTIONAL: No night sweats. No fatigue, malaise, lethargy. No fever or chills. HEENT: Eyes: No visual changes. No eye pain. No eye discharge. ENT: No runny nose. No epistaxis. No sinus pain. No odynophagia. No congestion. RESPIRATORY: No cough, no congestion. No hemoptysis. No shortness of breath. CARDIOVASCULAR: No angina symptoms. No CHF symptoms. No atypical chest pain for CAD. No palpitations. No orthopnea.. GASTROINTESTINAL: No abdominal pain. No nausea or vomiting. No diarrhea or constipation. No hematemesis. No hematochezia. GENITOURINARY: No urgency. No frequency. No dysuria. No hematuria. No obstructive symptoms. No discharge. No pain. No significant abnormal bleeding. MUSCULOSKELETAL: No musculoskeletal pain; no joint swelling. NEUROLOGICAL: Awake, alert, oriented to time, place and person. No headache. No neck pain. No syncope. No seizures. No dizziness. PSYCHIATRIC: Not anxious. No depression. No suicidal thoughts. No homicidal thoughts. SKIN: No rash. No lesions. No wounds. ENDOCRINE: No unexplained weight loss. No weight gain. HEMATOLOGIC/LYMPHATIC: No anemia. No purpura. No petechiae. No prolonged or excessive bleeding. No palpable lymph nodes. PHYSICAL EXAMINATION: GENERAL: The patient is awake, alert and oriented to time, place and person, sitting in bed in no distress. Had quit alcohol, no DT's VITAL SIGNS: Temperature 97.5 F, Pulse 98, Respiratory Rate 18, BP 133/83, Pulse Ox 95% HEENT: Head normocephalic, atraumatic. Eyes: Extraocular muscles are intact. Pupils are equal, round and reactive to light and accommodation. Ears: No lesions. Nose appeared normal. Throat: No exudate or erythema. NECK: Supple. No JVD, no carotid bruit. No lymphadenopathy or thyromegaly. LUNGS: Clear to auscultation. Percussion note normal. Chest symmetrical. HEART: S1, S2, no S3. No murmurs. No cyanosis or clubbing. No ascites. Pulses: Dorsalis pedis and posterior tibial pulses +1 to +2 both sides. ABDOMEN: Soft. Non-tender. Bowel sounds active. No CVA tenderness. No mass felt. EXTREMITIES: No edema. Full range of motion of all extremities, equal. NEUROLOGIC: No focal deficit. Cranial nerves II through XII are grossly intact. No headache, no double vision or headache. SKIN: Warm and dry. Intact. Turgor-normal. LYMPHATIC: No palpable lymph nodes/no lymphedema. MUSCULOSKELETAL: Normal joints with no swelling. Muscle tone is normal. LAB REVIEW: 04/04/19 05:14 04/04/19 05:14 04/04/19 05:14: Sodium 139.7, Potassium 3.58, Chloride 101.0, Carbon Dioxide 30.6 H, Anion Gap 11.68, BUN 7.5 L, Creatinine 0.65, Estimated GFR (MDRD) 127.00 , BUN/Creatinine Ratio 11.53, Glucose 104.9, Calcium 8.73, Total Bilirubin 0.25 , AST 24.3, ALT 10.9, Alkaline Phosphatase 120.5, Total Protein 6.89, Albumin 3.87, Globulin 3.02, Albumin/Globulin Ratio 1.28 04/04/19 05:14: WBC 9.20, RBC 4.16 L, Hgb 9.9 L, Hct 32.3 L, MCV 77.6 L, MCH 23.8 L, MCHC 30.7 L, RDW Coeff of Hai 18.7 H, Plt Count 412, Immature Gran % ( Auto) 0.4, Neut % (Auto) 66.4, Lymph % (Auto) 18.9, Stokes % (Auto) 9.5, Eos % ( Auto) 4.1, Baso % (Auto) 0.7, Immature Gran # (Auto) 0.0, Neut # (Auto) 6.1, Lymph # (Auto) 1.7, Stokes # (Auto) 0.9, Eos # (Auto) 0.4, Baso # (Auto) 0.1 ASSESSMENT: Please see below. 1. Anemia, stable no evidence of GI bleed. PLAN: 1. Appointment with Dr. Villar, gastrologist next week, strongly advised to keep appointment 2. See him back on Monday with Dr. Villarreal Plan and coordination of the patient's care discussed in the presence of Principal Examiner and nurse. CONDITION: Stable SCRIBED BY: David ODONNELL scribed while in presence of service performed by Dr. KARTHIK VILLARREAL on 04/04/19 ([id number])
--- NOTE | 2019-04-04 08:47 | DS ---
04/02/19: Level 5 04/03/19: Intermediate 04/04/19: D as in discharge MTDD
[2019-04-04] MEDS ORDERED: LIBRIUM PO SCH (09:00)
[2019-04-04] MEDS: TORADOL IVP PRN (09:25)
[2019-04-04 14:52] VITALS: BP 132/80; TEMP 97.4
[2019-04-04] MEDS ORDERED: TORADOL IVP STA (15:56)
--- NOTE | 2019-04-05 16:16 | OTDC ---
Date of Evaluation:04/02/19 Diagnosis:[Anemia, Weakness] Number of visits:[2] Last Date of Service:[04/04/19] Reason For Discharge:[Pt discharged to SNF for rehabilitation] Discharge Summary:[Pt is moderate to maximum assistance for transfers with rolling walker. Pt has LUE paralysis and requires assistance for all self care management. ] MELINDA
== END 2019-04-04 18:10 | DRG 812 ==
LOC: ED 10:15 → MEDSURG B 13:38
PROVIDERS: ADMIT Internal Medicine; ATTEND Internal Medicine

== ENCOUNTER 2019-04-07 16:48 | Emergency (ER) ==
[2019-04-07 16:53] VITALS: BP 112/74; TEMP 99.3
[2019-04-07 17:04] VITALS: BMI 28.8
--- NOTE | 2019-04-07 17:55 | CT ---
EXAM: CT Abdomen Pelvis Without IV contrast HISTORY: Hematuria, back pain COMPARISON: 04/02/2019 TECHNIQUE: CT Abdomen Pelvis performed Without intravenous contrast. Coronal and sagital images obta ined. FINDINGS: Clear lung bases. Normal heart size. No urolithiasis, hydronephrosis or perinephric fat stranding. Bladder is nondistended. The liver, gallbladder, pancreas, spleen, and adrenals are unremarkable. No bowel obstruction or abnormal bowel wall thickening. Diverticulosis without diverticulitis. Norm al appendix. No adenopathy. Mild ectatic distal most abdominal aorta measuring up to 2.7 cm in diameter (axial 83). No abnormal fluid collection, free fluid or free air. No acute osseous abnormality. Left total hip arthroplasty . Multilevel thoracolumbar spondylosis. Moderate DJD of the right hip. IMPRESSION: 1. No urolithiasis, hydronephrosis or perinephric fat stranding. 2. Diverticulosis without diverticulitis. 3. Mild inferior abdominal aortic ectasia measuring up to 2.7 cm. 4. Similar 21 x 10 mm saccular aneurysm at the medial aspect of the proximal left common iliac arter y. Atherosclerosis.
--- NOTE | 2019-04-07 18:10 | ED.PDOC ---
General ED Provider: Dr. KEENA MCLAIN-ER Chief Complaint: Urinary Problem Stated Complaint: i had blood in my urine Time Seen by Physician: 16:50 Mode of Arrival: Wheelchair Information Source: Patient Exam Limitations: No limitations Primary Care Provider: KARTHIK VILLARREAL Nursing and Triage Documentation Reviewed and Agree: Yes Does patient meet sepsis criteria?: No System Inflammatory Response Syndrome: Not Applicable Sepsis Protocol: For patient's 13 years and over: Temp is 96.8 and below OR 101 and greater Pulse >90 BPM Resp >20/minute Acutely Altered Mental Status Are patient's symptoms suggestive of a new infection, such as: -Pneumonia -Skin, Soft Tissue -Endocarditis -UTI -Bone, Joint Infection -Implantable Device -Acute Abdominal Infection -Wound Infection -Meningitis -Blood Stream Catheter Infection -Unknown Complaint Exam - Complaint/Exam Onset/Duration: today Symptoms Are: Still present Timing: Constant Initial Severity: Mild Current Severity: Mild Location of Pain: Reports: Left, Flank Character: Reports: Dull Aggravating: Reports: None Associated Signs and Symptoms: Reports: Hematuria Differential Diagnoses: Other Review of Systems - Review Of Systems Constitutional: Reports: No symptoms Eyes: Reports: No symptoms Ears, Nose, Mouth, Throat: Reports: No symptoms Respiratory: Reports: No symptoms Cardiac: Reports: No symptoms GI: Reports: No symptoms : Reports: Hematuria Musculoskeletal: Reports: No symptoms Skin: Reports: No symptoms Neurological: Reports: No symptoms Endocrine: Reports: No symptoms Hematologic/Lymphatic: Reports: No symptoms All Other Systems: Reviewed and Negative Past Medical History - Past Medical History Previously Healthy: Yes Endocrine: Reports: Dyslipidemia Cardiovascular: Reports: Hypertension Respiratory: Reports: None Hematological: Reports: None Gastrointestinal: Reports: None Genitourinary: Reports: None Neuro/Psych: Reports: None Musculoskeletal: Reports: Arthritis Cancer: Reports: None Other Pertinent Past Medical History: Left Ulnar damage for fracture 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 - Surgical History General Surgical History: Reports: Other - Family History Family History: Reports: None - Social History Smoking Status: Former smoker Hx Substance Use: Yes Alcohol Screening: Heavy Physical Exam - Physical Exam Appearance: Well-appearing, No pain distress, Well-nourished Eyes: ANNIE, EOMI, Conjunctiva clear ENT: Ears normal Neck: Supple Respiratory: Airway patent Cardiovascular: RRR, Pulses normal, No rub, No murmur GI/: Soft, Nontender, No masses, Bowel sounds normal, No Organomegaly Musculoskeletal: Normal strength, ROM intact, No edema, No calf tenderness Skin: Warm, Dry, Normal color Neurological: Sensation intact, Motor intact, Reflexes intact, Cranial nerves intact, Alert, Oriented Psychiatric: Affect appropriate, Mood appropriate Interpretation - Radiology Interpretation Radiology Interpretation By: Radiologist Radiology Results: Positive Exam Interpreted: CT Scan Critical Care Note - Critical Care Note Total Time (mins): 0 Course - Course Hematology/Chemistry: 04/07/19 17:03 04/07/19 17:03 Orders, Labs, Meds: Lab Review 04/07/19 04/07/19 04/07/19 17:00 17:03 17:03 WBC 10.73 H RBC 4.13 L Hgb 9.7 L Hct 32.5 L MCV 78.7 L MCH 23.5 L MCHC 29.8 L RDW Coeff of Hai 19.0 H Plt Count 428 Immature Gran % (Auto) 0.8 Neut % (Auto) 59.9 Lymph % (Auto) 20.9 [place] % (Auto) 12.5 H Eos % (Auto) 5.2 Baso % (Auto) 0.7 Immature Gran # (Auto) 0.1 Neut # (Auto) 6.4 Lymph # (Auto) 2.2 [place] # (Auto) 1.3 Eos # (Auto) 0.6 Baso # (Auto) 0.1 Sodium 137.7 Potassium 3.96 Chloride 98.0 Carbon Dioxide 29.9 Anion Gap 13.76 BUN 8.1 L Creatinine 0.63 Estimated GFR (MDRD) 132.00 BUN/Creatinine Ratio 12.85 Glucose 82.8 Calcium 8.59 Total Bilirubin 0.26 AST 40.7 ALT 9.3 Alkaline Phosphatase 102.8 Total Protein 7.05 Albumin 3.82 Globulin 3.23 Albumin/Globulin Ratio 1.18 Urine Color Yellow Urine Clarity Clear Urine pH 6.5 Ur Specific [place] 1.010 Urine Protein Negative Urine Glucose (UA) Negative Urine Ketones Negative Urine Blood 2+ Urine Nitrite Negative Urine Bilirubin Negative Urine Urobilinogen 0.2 Ur Leukocyte Esterase Negative Urine Microscopic RBC 10-20 Urine Microscopic WBC 0-2 Ur Squamous Epith Cells Not present Urine Bacteria Trace Orders Category Date Time Status CBC W/ AUTO DIFF Stat LAB 04/07/19 17:03 Completed COMPREHENSIVE METABOLIC PANEL Stat LAB 04/07/19 17:03 Completed UA [URINALYSIS C & S IF INDICATED] Stat LAB 04/07/19 17:[address] ABD/PEL WO RENAL STONE PROT Stat RADS 04/07/19 16:55 Completed Vital Signs: Temp Pulse Resp BP Pulse Ox 04/07/19 16:49 99.3 F 98 H 18 112/74 97 Departure - Departure Time of Disposition: 18:09 Disposition: HOME SELF-CARE Discharge Problem: Gross hematuria Instructions: Hematuria (ED) Condition: Good Pt referred to PMD for follow-up: Yes IPMP verified?: No Additional Instructions: norflex 100mg q 12hrs prn back paIn----talk to dr noguera office tomorrow about blood in the urine Allergies/Adverse Reactions: Allergies Sulfa (Sulfonamide Antibiotics) Adverse Reaction (Verified 04/07/19 17:05) Home Medications: Ambulatory Orders Amlodipine Besylate 10 mg PO DAILY 03/05/18 Escitalopram Oxalate [Lexapro] 20 mg PO DAILY 08/10/18 Carvedilol [Coreg] 3.125 mg PO DAILY 01/10/19 Clopidogrel Bisulfate [Plavix] 75 mg PO DAILY 01/10/19 Pantoprazole Sodium [Protonix] 40 mg PO DAILY 01/10/19 Aspirin 81 mg PO DAILY 04/02/19 Atorvastatin Calcium 80 mg PO BEDTIME 04/02/19 Duloxetine HCl [Cymbalta] 20 mg PO DAILY 04/02/19 Lisinopril 2.5 tab PO BEDTIME 04/02/19 Magnesium Chloride [Slow-Mag] 143 mg PO QAM 04/02/19 Naltrexone HCl 50 mg PO DAILY 04/02/19 Chlordiazepoxide HCl [Librium] 10 mg PO BID #1 capsule 04/04/19 Trazodone HCl 25 mg PO BEDTIME #1 04/04/19 Acetaminophen [Mapap] 325 mg PO Q6H PRN 04/07/19 Acetaminophen [Tylenol] 650 mg PO Q4H PRN 04/07/19 Sucralfate 1 gm PO BEDTIME 04/07/19 Thiamine HCl 500 mg PO DAILY 04/07/19 Disposition Discussed With: Patient
[2019-04-07] MEDS ORDERED: NORFLEX PO STA (18:21)
== END 2019-04-07 19:56 | disposition home or self-care (01) ==
LOC: ED 16:48
DX: R31.0 Gross hematuria (principal); R10.9 Unspecified abdominal pain; E78.5 Hyperlipidemia, unspecified; I10 Essential (primary) hypertension; Z79.899 Other long term (current) drug therapy
CPT/HCPCS: 36415; 80053; 81001; 85025; 99283